=== PATIENT | female | born 1965 | race Caucasian/White ===

== ENCOUNTER → 2017-02-24 | Outpatient (CLI) | payer OTHER | LOC: BMCIMAGING 14:02 | PROVIDERS: ATTEND Orthopaedic Surgery | DX: M17.11 Unilateral primary osteoarthritis, right knee (principal) ==

== ENCOUNTER → 2017-06-09 | Outpatient (CLI) | payer OTHER | LOC: FIMAGING 10:49 | PROVIDERS: ATTEND Orthopaedic Surgery | DX: M17.11 Unilateral primary osteoarthritis, right knee (principal) ==

== ENCOUNTER → 2017-07-02 | Outpatient (CLI) | payer OTHER | LOC: FIMAGING 07:14 | PROVIDERS: ATTEND Family Medicine | DX: Z12.31 Encounter for screening mammogram for malignant neoplasm of breast (principal) | CPT/HCPCS: G0202 ==

== ENCOUNTER 2017-07-26 09:00 | Inpatient (IN) | payer OTHER ==
--- NOTE | 2017-07-26 07:13 | PDHPUP ---
History & Physical Update H&P update statement: This history and physical update is based on an assessment of the patient which was completed after admission or registration (within 24 hours), but prior to the surgery/procedure.
--- NOTE | 2017-07-26 07:15 | PDIAF ---
- Diagnosis Diagnosis: right knee djd Code Status: Full Code - Medication Management Discharge Medications: Medications to Continue on Transfer celeCOXIB [Celebrex (*)] 200 mg PO DAILY PRN 04/14/14 [Last Taken Unknown] Ascorbic Acid [Vitamin C 500 mg (*)] 1,000 mg PO DAILY 06/28/17 [Last Taken Unknown] Herbals/Supplements -Info Only 1 ea PO DAILY 06/28/17 [Last Taken Unknown] Ibuprofen [Advil] 200 mg PO DAILY PRN 06/28/17 [Last Taken Unknown] [place]-3 Fatty Acids [Fish Oil 1000 mg (*)] 1,000 mg PO DAILY 06/28/17 [Last Taken Unknown] Discharge Medications: Refer to the Discharge Home Medication list for PRN reason. - Orders Services needed: Physical Therapy Diet Recommendation: no restrictions on diet Diet Texture: Regular Texture Diet Activity/Weight Bearing Restrictions: wbat. rom as joseph. daily dressing changes. no soaking. may shower without bandage. seek attn for increasing redness, swelling, drainage, discharge. f/u at two weeks - Follow Up Care Current Providers and Referrals: Shaina Valle MD [Primary Care Provider] -
[~2017-07-26 09:00] MED LIST: ROPIVACAINE 0.2% 80 MG, EPINEPHrine 0.2 MG, KETOROLAC TROMETHAMINE 30 MG in BAG 0 ML IU ONE; TRANEXAMIC ACID 890 MG in NS 100 ML IV ONE; VANCOMYCIN 1.25 GM in D5W 250 ML IV ONE; VANCOMYCIN PHARMACY TO DOSE MISC ONE
[2017-07-26] MEDS ORDERED: ceFAZolin 1 GM/5 ML SYR ONE (09:32)
[2017-07-26] MEDS ORDERED: CALCIUM CHLORIDE 1 GM/10 ML INJ ONE (09:32)
[2017-07-26] MEDS ORDERED: THROMBIN (BOVINE) 5,000 UNIT VIAL TP ONE (09:32)
[2017-07-26] MEDS ORDERED: FAMOTIDINE 20 MG TAB PO ONE (09:34)
[2017-07-26] MEDS ORDERED: ACETAMINOPHEN 325 MG TAB PO ONE (09:34)
[2017-07-26] MEDS ORDERED: MIDAZOLAM 2 MG/2 ML VIAL ONE ×2 (11:18→12:19)
[2017-07-26] MEDS ORDERED: ALBUMIN 5% 250 ML BOTTLE IV ONE (11:27)
[2017-07-26] MEDS ORDERED: PROPOFOL/EMULSION 500 MG/50 ML BOTTLE IV ONE (11:28)
--- NOTE | 2017-07-26 11:36 | PDANEPAE ---
ANE Past Medical History - Cardiovascular History Hx Hypertension: No Hx Arrhythmias: No Hx Chest Pain: No Hx Coronary Artery / Peripheral Vascular Disease: No Hx CHF / Valvular Disease: No Hx Palpitations: No - Pulmonary History Hx COPD: No Hx Asthma/Reactive Airway Disease: No Hx Recent Upper Respiratory Infection: No Hx Oxygen in Use at Home: No Hx Sleep Apnea: No Sleep Apnea Screening Result - Last Documented: Negative - Neurologic History Hx Cerebrovascular Accident: No Hx Seizures: No Hx Dementia: No - Endocrine History Hx Diabetes: No - Renal History Hx Renal Disorders: No - Liver History Hx Hepatic Disorders: No - Neurological & Psychiatric Hx Hx Neurological and Psychiatric Disorders: No - Cancer History Hx Cancer: No - Congenital Disorder History Hx Congenital Disorders: No - GI History Hx Gastrointestinal Disorders: No - Other Health History Other Health History: none - Chronic Pain History Chronic Pain: Yes (R knee) - Surgical History Prior Surgeries: L knee scope 04/25. appi ANE Review of Systems Review of Systems: - Exercise capacity METS (RN): 5 METS ANE Patient History - Allergies Allergies/Adverse Reactions: morphine Allergy (Mild, Verified 07/23/17 15:31) LACK OF EFFECTIVENESS amoxicillin [Amoxicillin] Allergy (Verified 02/12/14 13:55) Rash - Home Medications Home Medications: celeCOXIB [Celebrex (*)] 200 mg PO DAILY PRN 04/14/14 [Last Taken 07/21/17] Ascorbic Acid [Vitamin C 500 mg (*)] 1,000 mg PO DAILY 06/28/17 [Last Taken 05/01] Herbals/Supplements -Info Only 1 ea PO DAILY 06/28/17 [Last Taken 07/21/17] Ibuprofen [Advil] 200 mg PO DAILY PRN 06/28/17 [Last Taken 07/21/17] [place]-3 Fatty Acids [Fish Oil 1000 mg (*)] 1,000 mg PO DAILY 06/28/17 [Last Taken 07/21/17] - NPO status NPO Since - Liquids (Date): 07/25/17 NPO Since - Liquids (Time): 19:00 NPO Since - Solids (Date): 07/25/17 NPO Since - Solids (Time): 19:00 - Smoking Hx Smoking Status: Never smoked - Family Anes Hx Family Hx Anesthesia Complications: no ANE Labs/Vital Signs - Vital Signs Blood Pressure: 149/97 Heart Rate: 90 Respiratory Rate: 16 O2 Sat (%): 97 Height: 165.1 cm Weight: 89.358 kg ANE Physical Exam - Airway Neck exam: FROM Mallampati Score: Class 1 Mouth exam: normal dental/mouth exam - Pulmonary Pulmonary: no respiratory distress, no rales or rhonchi, clear to auscultation - Cardiovascular Cardiovascular: regular rate and rhythym, no murmur, rub, or gallop, pulses symmetric bilaterally - ASA Status ASA Status: II ANE Anesthesia Plan Anesthesia Plan: spinal Regional Anesthesia: adductor canal FNB
[2017-07-26] MEDS ORDERED: ACETAMINOPHEN 500 MG TAB PO PRN (13:11)
[2017-07-26] MEDS ORDERED: LR 500 ML IV PRN (13:11)
[2017-07-26] MEDS ORDERED: MEPERIDINE 25 MG/ML SYR IVP PRN (13:11)
[2017-07-26] MEDS ORDERED: NALOXONE HCL 0.4 MG/ML INJ IVP PRN (13:11)
[2017-07-26] MEDS ORDERED: fentaNYL 100 MCG/2 ML INJ IVP PRN (13:11)
[2017-07-26] MEDS ORDERED: METOCLOPRAMIDE 10 MG/2 ML VIAL IVP PRN ×2 (13:11→16:56)
[2017-07-26] MEDS ORDERED: DEXAMETHASONE 4 MG/ML VIAL IVP PRN (13:11)
[2017-07-26] MEDS ORDERED: ALBUTEROL 3 ML DEYVIAL IH PRN (13:11)
[2017-07-26] MEDS ORDERED: PROMETHAZINE HCL 25 MG/ML INJ IVP PRN ×2 (13:11→16:56)
[2017-07-26] MEDS ORDERED: ONDANSETRON 4 MG/2 ML VIAL IVP PRN ×2 (13:11→16:56)
[2017-07-26] MEDS ORDERED: ROPIVACAINE HCL 150 MG/30 ML INJ ONE (15:39)
--- NOTE | 2017-07-26 15:42 | POSTANESTH ---
Post Anesthetic Evaluation Cardiovascular Status: Normal, Stable Respiratory Status: Normal, Stable Level of Consciousness/Mental Status: Mildly Sleepy, Arousable Pain Control: Adequate, Prn Tx Ordered Nausea/Vomiting Control: Adequate, Prn Tx Ordered Complications Possibly Related to Anesthesia: None Noted
[2017-07-26] MEDS ORDERED: oxyCODONE IR 5 MG TAB PO PRN ×2 (15:43→16:56)
[2017-07-26] MEDS: oxyCODONE IR 5 MG TAB PO PRN ×2 (16:54→20:37)
[2017-07-26] MEDS ORDERED: MAGNESIUM HYDROXIDE 30 ML UDCUP PO PRN (16:56)
[2017-07-26] MEDS ORDERED: PHARMACY PAIN CONSULT 1 EA MISC PRN (16:56)
[2017-07-26] MEDS ORDERED: traMADol 50 MG TAB PO PRN (16:56)
[2017-07-26] MEDS ORDERED: DIPHENOXYLATE/ATROPINE LOMOTIL 1 TAB PO PRN (16:56)
[2017-07-26] MEDS ORDERED: POLYETHYLENE GLYCOL 3350 17 GM PKT PO PRN (16:56)
[2017-07-26] MEDS ORDERED: ONDANSETRON DISINTEGRATING 4 MG TAB PO PRN (16:56)
[2017-07-26] MEDS ORDERED: LACTULOSE 20 GM/30 ML UDCUP PO PRN (16:56)
[2017-07-26] MEDS ORDERED: DIAZEPAM 5 MG TAB PO PRN (16:56)
[2017-07-26] MEDS ORDERED: PROMETHAZINE HCL 25 MG SUPPR PR PRN (16:56)
[2017-07-26] MEDS ORDERED: diphenhydrAMINE 25 MG CAP PO PRN (16:56)
[2017-07-26] MEDS ORDERED: TEMAZEPAM 15 MG CAP PO PRN (16:56)
[2017-07-26] MEDS ORDERED: BISACODYL 10 MG SUPP PR PRN (16:56)
[2017-07-26] MEDS ORDERED: HYDROmorphONE/DILAUDID 1 MG/ML INJ IVP PRN (16:57)
[2017-07-26] MEDS: TRANEXAMIC ACID 650 MG TAB PO SCH (17:33)
[2017-07-26] MEDS: ACETAMINOPHEN 325 MG TAB PO SCH (17:33)
[2017-07-26] MEDS: LR 1,000 ML IV SCH ×2 (17:33→17:34)
[2017-07-26] MEDS: SENNOSIDES/DOCUSATE SODIUM TAB PO SCH (20:36)
[2017-07-26] MEDS: ASPIRIN 325 MG TAB PO SCH (20:36)
[2017-07-26] MEDS: FAMOTIDINE 20 MG TAB PO SCH (20:36)
[2017-07-27] MEDS: oxyCODONE IR 5 MG TAB PO PRN ×4 (00:04→13:08)
[2017-07-27] MEDS: ACETAMINOPHEN 325 MG TAB PO SCH ×3 (00:04→12:38)
[2017-07-27] MEDS: TRANEXAMIC ACID 650 MG TAB PO SCH ×2 (00:05→08:28)
[2017-07-27 04:46] LABS: HEMATOCRIT 36.8 % (38.0-47.0); HEMOGLOBIN 11.5 g/dL (12.6-16.3)
--- NOTE | 2017-07-27 07:17 | PDIAF ---
- Diagnosis Diagnosis: right knee djd Code Status: Full Code - Medication Management Discharge Medications: Medications to Continue on Transfer celeCOXIB [Celebrex (*)] 200 mg PO DAILY PRN 04/14/14 [Last Taken 07/21/17] Ascorbic Acid [Vitamin C 500 mg (*)] 1,000 mg PO DAILY 06/28/17 [Last Taken 05/01] Herbals/Supplements -Info Only 1 ea PO DAILY 06/28/17 [Last Taken 07/21/17] Ibuprofen [Advil] 200 mg PO DAILY PRN 06/28/17 [Last Taken 07/21/17] [place]-3 Fatty Acids [Fish Oil 1000 mg (*)] 1,000 mg PO DAILY 06/28/17 [Last Taken 07/21/17] Aspirin [Aspirin 325 mg (*)] 325 mg PO DAILY tab 07/27/17 [Last Taken Unknown] oxyCODONE IR [Oxycodone Ir (*)] 5 - 15 mg PO Q4H PRN #90 tab 07/27/17 [Last Taken Unknown] Discharge Medications: Refer to the Discharge Home Medication list for PRN reason. - Orders Services needed: Physical Therapy Diet Recommendation: no restrictions on diet Diet Texture: Regular Texture Diet Activity/Weight Bearing Restrictions: wbat. rom as joseph. daily dressing changes. no soaking. may shower without bandage. seek attn for increasing redness, swelling, drainage, discharge. f/u at two weeks - Follow Up Care Current Providers and Referrals: Shaina Valle MD [Primary Care Provider] -
[2017-07-27 07:39] VITALS: RESP 18
--- NOTE | 2017-07-27 07:52 | GDS ---
[f rep st] DISCHARGE SUMMARY ADMISSION DIAGNOSIS: Right knee degenerative joint disease. DISCHARGE DIAGNOSIS: Right knee degenerative joint disease. PROCEDURE: Right total knee arthroplasty. OPERATIVE INDICATIONS: The patient is a 51-year-old woman who has end-stage arthritis to her right k nee. She has clinical radiograph features consistent with this. She has had progressive deteriorati on of her symptoms and interference with her activities of daily living. She has failed all attempts at conservative management currently. I have recommended total knee replacement. She understood e risks, benefits, alternatives and wished to proceed. Written consent was signed and placed in gretel ent's chart. HOSPITAL COURSE: Patient was admitted to the hospital floor after uncomplicated total knee arthropla sty. She tolerated the procedure well. Postoperatively, she had slight issues of pain control but o therwise no focal complications. At the time of discharge, she is tolerating an oral diet. Her pain is well controlled on oral medicines. She is voiding without difficulty. Dressing is clean, dry, a nd intact. She has no calf swelling or tenderness. Negative Homans bilaterally. X-rays demonstrate d anatomic positioning with no lucency, fracture, or malpositioning. DISCHARGE ACTIVITY: She is weightbearing as tolerated. Range of motion as tolerated. Daily dressin g changes. No soaking or immersion. May shower without the bandage. DISCHARGE MEDICATIONS: Aspirin 325 mg p.o. daily for 6 weeks and oxycodone 5 mg 1-3 every 4 hours p. r.n. pain. FOLLOWUP: 2 weeks. Seek attention for increasing redness, swelling, drainage, discharge, or other f ocal complaint. /[id number]/MODL
[2017-07-27] MEDS: ASPIRIN 325 MG TAB PO SCH (08:28)
[2017-07-27] MEDS: FAMOTIDINE 20 MG TAB PO SCH (08:29)
[2017-07-27] MEDS: SENNOSIDES/DOCUSATE SODIUM TAB PO SCH (08:29)
--- NOTE | 2017-07-27 10:29 | ASMTCMCOM ---
CM Note CM Note Notes: Met with patient regarding discharge poc. Patient agreeable to Home Health Care and and would like [facility]. Spoke with Jenna at [facility] re: referral, able to accept. Info sent to [facility], final orders to be obtained online. Patient's partner to pick-up walker from [place]. CM avail. for questions/concerns. Date Signed: 07/27/2017 10:28 AM Electronically Signed By:Claribel Gutierrez RN
[2017-07-27 11:11] VITALS: BP 155/91; PULSE 73; TEMP 98.1; O2SAT 96
--- NOTE | 2017-07-27 16:56 | ASDISCHSUM ---
Discharge Information Plan Status:Home with Home Health Medically Cleared to Leave: Discharge Date:07/27/2017 04:01 PM D/C Disposition: ADT D/C Disposition:Home, Routine, Self-Care Projected Discharge Date:07/27/2017 11:00 AM Transportation at D/C: Discharge Delay Reason: Follow-Up Date:07/27/2017 11:00 AM Discharge Slot: Final Diagnosis: Placement Information Referral Type:*Home Health Care Services Referral ID:[id number] Provider Name:[facility] Address 1:[address] Address 2: City:[place] Selection Factors: State:[place] Patient Contact Information Contact Name:JUDY Relationship:Life Partner Address:[address] Work Phone: [facility]:[place] Alternate Phone: State/Zip Code:[place] [address] Email: Financial Information Financial Class:[facility] Primary Plan Desc:[facility] Primary Plan Number:[id number] Secondary Plan Desc: Secondary Plan Number: Assessment Information [facility] CM Progress Note CM Note CM Note Notes: Met with patient regarding discharge poc. Patient agreeable to Home Health Care and and would like [facility]. Spoke with Jenna at [facility] re: referral, able to accept. Info sent to [facility], final orders to be obtained online. Patient's partner to pick-up caroline from [facility]. CM avail. for questions/concerns. Date Signed: 07/27/2017 10:28 AM Electronically Signed By:Claribel Gutierrez RN Intervention Information
== END 2017-07-27 16:01 | disposition home or self-care (01) | DRG 470 ==
LOC: F3E 09:20 → F3N 16:15
PROVIDERS: ADMIT Orthopaedic Surgery; ATTEND Orthopaedic Surgery
PROC: 0SRC0JZ Replacement of Right Knee Joint with Synthetic Substitute, Open Approach (ICD-10-PCS; principal; 2017-07-26 09:00)
DX: M17.11 Unilateral primary osteoarthritis, right knee (principal)
CPT/HCPCS: 97110-GP; 97116-GP; 97161-GP; 97165-GO; 97530-GP; C1713; J0171; J1170; J1885; J2250; J2704; J2795; J3370; P9041

== ENCOUNTER → 2017-09-08 | Outpatient (CLI) | payer OTHER | LOC: BMCIMAGING 13:20 | PROVIDERS: ATTEND Orthopaedic Surgery | DX: Z47.1 Aftercare following joint replacement surgery (principal); Z96.651 Presence of right artificial knee joint; M25.461 Effusion, right knee ==

== ENCOUNTER → 2017-10-05 | Outpatient (CLI) | payer OTHER | LOC: BMCIMAGING 15:26 | PROVIDERS: ATTEND Orthopaedic Surgery | DX: Z09 Encounter for follow-up examination after completed treatment for conditions other than malignant neoplasm (principal); Z96.651 Presence of right artificial knee joint ==

== ENCOUNTER → 2018-02-01 | Outpatient (CLI) | payer OTHER | LOC: BMCIMAGING 13:14 | PROVIDERS: ATTEND Orthopaedic Surgery | DX: Z47.1 Aftercare following joint replacement surgery (principal); Z96.651 Presence of right artificial knee joint ==

== ENCOUNTER → 2018-08-03 | Outpatient (CLI) | payer OTHER | LOC: BMCIMAGING 10:57 | PROVIDERS: ATTEND Orthopaedic Surgery | DX: Z47.89 Encounter for other orthopedic aftercare (principal); Z96.651 Presence of right artificial knee joint ==

== ENCOUNTER 2018-10-20 15:00 | Inpatient (IN) | payer OTHER ==
--- NOTE | 2018-10-20 18:52 | GHP ---
DATE OF ADMISSION: 10/21/2018 PREOPERATIVE DIAGNOSIS: Menorrhagia and symptomatic uterine fibroids. SURGERY TO BE PERFORMED: Total laparoscopic hysterectomy and bilateral salpingectomy. COLLECT ON DELIVERY CLERK: Shelby Sinclair DO HISTORY OF PRESENT ILLNESS: Fernanda is a 52year-old 0, who originally presented complaining of severe menorrhagia and symptomatic uterine fibroids causing significant anemia. She has had long and heavy, frequent periods for many years, but they are increasing over the last year. She had an evaluation for her bleeding, which included an ultrasound. The ultrasound demonstrated a large fibroid occupying the central portion of her uterus, submucosal in nature , that was 6.8 x 5.7 x 7.3 cm. This was originally performed in December 2017. At that time, we discussed treatment options, surgical management versus expectant management. Patient was reluctant to have surgery because of starting a new job. She was anemic but taking iron and feeling like she was handling her bleeding alright. We also did an evaluation for her hormones, and she is not menopausal. Over the last 8 months, her bleeding has become worse and she presented again in September with worsening bleeding of every 2 weeks, lasting 2 weeks. She soaks 2 tampons every hour and bleeds through frequently, passing large clots and feeling really rundown. We repeated an ultrasound and the fibroid has gotten bigger. It is submucosal in nature, 8.6 x 7.6 x 7.6 cm, and she also has a smaller 2 cm fibroid in the lower uterine segment. Ovaries were normal. We again discussed treatment options and this fibroid is too large , is not amenable to hysteroscopic approach. I recommend a hysterectomy and patient is in agreement. She wishes to have a total laparoscopic hysterectomy, bilateral salpingectomy. She wants to retain her ovaries. She realizes she is 52 years old and there is a possibility that they could cause malignancy in the future, but she wishes to retain her ovaries and retain her natural hormones, and she is not menopausal at this time. Patient has no past obstetrical history. She has never been . PAST GYNECOLOGICAL HISTORY: She started menses at age 10. Currently, her periods are every 21 days, lasting at least 10 days, very, very heavy. They have worsened in the past several years. She denies a history of abnormal Pap. Her most recent Pap was in December of this year, which was normal. No history of any sexually transmitted diseases. She is in a monogamous relationship with a female for 19 years. She has no significant past medical problems, except for chronic anemia of blood loss. PAST SURGICAL HISTORY: She had a history of an appendectomy in 1989, a left meniscus repair in 2010, a right meniscus repair in 2012, and a total knee in 2017, on her right. Her only medication is iron, which she takes every day. ALLERGIES: Amoxicillin gave her a rash in childhood. 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 She denies tobacco. She has social alcohol 4 times a week. No marijuana use. Again, she is in a monogamous female relationship. FAMILY HISTORY: Noncontributory. OBJECTIVE: VITAL SIGNS: Today, she is afebrile. Vital signs are stable. Blood pressure is 122/78, weight is 208 pounds. GENERAL: She is a well- developed, obese white female in no acute distress. LUNGS: Clear to auscultation bilaterally. HEART: Regular rate and rhythm. No murmurs. ABDOMEN: Soft, nondistended, normal bowel sounds. Palpable uterus and is in her lower pelvis. PELVIC: Normal external genitalia. Nulliparous cervix. Uterus is bulky, approximately 12 week size, and the fibroid is palpable. No adnexal masses. ASSESSMENT AND PLAN: A 52year-old 0 with menorrhagia and a symptomatic submucosal uterine fibroid for total laparoscopic hysterectomy, bilateral salpingectomy. The patient was consented for the procedure today. She understands the risks and benefits. The risks, including bleeding, infection, damage to organs, bowel, bladder, nerves, blood vessels, ureters, need for open procedure, need for additional procedures. She understands these risks and benefits and agreed to proceed. /[id number]/MODL MTDD
[2018-10-21] MEDS ORDERED: BUPIVACAINE 0.5% 30 ML SDV ONE (07:40)
[2018-10-21] MEDS ORDERED: LR 1,000 ML IV ONE (07:40)
[2018-10-21] MEDS ORDERED: LIDOCAINE 1% 2 ML INJ ID PRN (07:40)
[2018-10-21] MEDS ORDERED: ceFAZolin 2 GM/DEXTROSE 100 ML IV ONE (07:40)
[2018-10-21] MEDS ORDERED: MIDAZOLAM 2 MG/2 ML VIAL ONE (08:59)
[2018-10-21] MEDS ORDERED: ONDANSETRON 4 MG/2 ML VIAL ONE ×2 (08:59→10:27)
--- NOTE | 2018-10-21 09:08 | PDHPUP ---
History & Physical Update H&P update statement: This history and physical update is based on an assessment of the patient which was completed after admission or registration (within 24 hours), but prior to the surgery/procedure. H&P update: H&P reviewed & patient examined, no change in patient's condition since H&P completed
[2018-10-21] MEDS ORDERED: PROPOFOL/EMULSION 500 MG/50 ML BOTTLE IV ONE ×2 (09:16→10:28)
[2018-10-21] MEDS ORDERED: fentaNYL 250 MCG/5 ML INJ ONE (09:16)
[2018-10-21] MEDS ORDERED: KETAMINE 200 MG/20 ML VIAL ONE (09:21)
[2018-10-21] MEDS ORDERED: ALBUMIN 5% 250 ML BOTTLE IV ONE (09:24)
[2018-10-21] MEDS ORDERED: ALBUTEROL 3 ML DEYVIAL IH PRN (10:18)
[2018-10-21] MEDS ORDERED: oxyCODONE IR 5 MG TAB PO PRN (10:18)
[2018-10-21] MEDS ORDERED: MEPERIDINE 25 MG/0.5 ML AMP IVP PRN (10:18)
[2018-10-21] MEDS ORDERED: NALOXONE HCL 0.4 MG/ML INJ IVP PRN (10:18)
[2018-10-21] MEDS ORDERED: ONDANSETRON 4 MG/2 ML VIAL IVP PRN (10:18)
[2018-10-21] MEDS ORDERED: METOCLOPRAMIDE 10 MG/2 ML VIAL IVP PRN (10:18)
[2018-10-21] MEDS ORDERED: fentaNYL 100 MCG/2 ML INJ IVP PRN (10:18)
[2018-10-21] MEDS ORDERED: HYDROCODONE/APAP 5/325 TAB PO PRN ×2 (10:18→13:53)
[2018-10-21] MEDS ORDERED: DEXAMETHASONE 4 MG/ML VIAL IVP PRN (10:18)
[2018-10-21] MEDS ORDERED: LR 500 ML IV PRN (10:18)
[2018-10-21] MEDS ORDERED: PROMETHAZINE HCL 25 MG/ML INJ IVP PRN (10:18)
[2018-10-21] MEDS ORDERED: ACETAMINOPHEN 500 MG TAB PO PRN (10:18)
[2018-10-21] MEDS ORDERED: HYDROmorphONE/DILAUDID 2 MG/ML INJ IVP PRN (10:18)
[2018-10-21] MEDS ORDERED: DIAZEPAM 5 MG/ML 1 ML SYR IVP PRN (10:18)
--- NOTE | 2018-10-21 10:18 | PDANEPAE ---
ANE Past Medical History - Cardiovascular History Hx Hypertension: No Hx Arrhythmias: No Hx Chest Pain: No Hx Coronary Artery / Peripheral Vascular Disease: No Hx CHF / Valvular Disease: No Hx Palpitations: No - Pulmonary History Hx COPD: No Hx Asthma/Reactive Airway Disease: No Hx Recent Upper Respiratory Infection: No Hx Oxygen in Use at Home: No Hx Sleep Apnea: No Sleep Apnea Screening Result - Last Documented: Negative - Neurologic History Hx Cerebrovascular Accident: No Hx Seizures: No Hx Dementia: No - Endocrine History Hx Diabetes: No - Renal History Hx Renal Disorders: No - Liver History Hx Hepatic Disorders: No - Neurological & Psychiatric Hx Hx Neurological and Psychiatric Disorders: No - Cancer History Hx Cancer: No - Congenital Disorder History Hx Congenital Disorders: No - GI History Hx Gastrointestinal Disorders: No - Other Health History Other Health History: fibroids currently. wears reading glasses - Chronic Pain History Chronic Pain: No - Surgical History Prior Surgeries: 07/26/17 right TKA with Repine. 02/12/14 right knee scope with [place]. 05/06/11 Left knee scope with [place]er. appi ANE Review of Systems Review of Systems: - Exercise capacity METS (RN): 6 METS ANE Patient History - Allergies Allergies/Adverse Reactions: morphine Allergy (Mild, Verified 10/20/18 14:25) LACK OF EFFECTIVENESS amoxicillin [Amoxicillin] Allergy (Verified 10/20/18 14:25) Rash - Home Medications Home Medications: Ferrous Sulfate [Ferrous Sulf 325 MG (*)] 325 mg PO DAILY 10/18/18 [Last Taken Unknown] Ibuprofen [Motrin (*)] 200 mg PO DAILY PRN 10/18/18 [Last Taken Unknown] - NPO status NPO Since - Liquids (Date): 10/20/18 NPO Since - Liquids (Time): 20:00 NPO Since - Solids (Date): 10/20/18 NPO Since - Solids (Time): 20:00 - Smoking Hx Smoking Status: Never smoked - Family Anes Hx Family Hx Anesthesia Complications: none ANE Labs/Vital Signs - Vital Signs Blood Pressure: 133/93 Heart Rate: 91 Respiratory Rate: 14 O2 Sat (%): 97 Height: 165.1 cm Weight: 87.09 kg ANE Physical Exam - Airway Neck exam: FROM Mallampati Score: Class 1 Mouth exam: normal dental/mouth exam - Pulmonary Pulmonary: no respiratory distress, no rales or rhonchi, clear to auscultation - Cardiovascular Cardiovascular: regular rate and rhythym, no murmur, rub, or gallop - ASA Status ASA Status: II ANE Anesthesia Plan Anesthesia Plan: general endotracheal anesthesia Lines/Monitors: additional IV Total IV Anesthesia: Yes
[2018-10-21] MEDS ORDERED: DEXAMETHASONE 4 MG/ML VIAL ONE (10:27)
[2018-10-21] MEDS ORDERED: RANITIDINE 50 MG/2 ML VIAL ONE (10:27)
[2018-10-21] MEDS ORDERED: LIDOCAINE 2% 5 ML SDV ONE (10:27)
[2018-10-21] MEDS ORDERED: METOCLOPRAMIDE 10 MG/2 ML VIAL ONE (10:27)
[2018-10-21] MEDS ORDERED: ROCURONIUM 50 MG/5 ML VIAL ONE (10:27)
[2018-10-21] MEDS ORDERED: SUGAMMADEX SODIUM 200 MG/2 ML VIAL IVP ONE (10:27)
[2018-10-21] MEDS ORDERED: METHYLENE BLUE 0.5% 50 MG/10 ML AMP ONE (12:05)
[2018-10-21] MEDS ORDERED: IOPAMIDOL (ISOVUE-M 300) 15 ML VIAL ONE (12:49)
--- NOTE | 2018-10-21 13:26 | POSTOPPROG ---
Post Op Note Date of Operation: 10/21/18 Surgeon: Daniel Vasquez Pre-op Diagnosis: uretera lnjury Findings: [id number] Inf/Abcess present in the surg proc area at time of surgery?: No
--- NOTE | 2018-10-21 13:52 | GCON ---
DATE OF CONSULTATION: 10/21/2018 REASON FOR CONSULT: Potential ureteral trauma. 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 The case was uneventful, and routine insp ection for ureteral efflux at the end of the case did not reveal left ureteral efflux according to Dr Mag Guillen. Therefore, Urology was consulted. The patient is under general anesthesia in the operating room, and therefore, past histories and phys ical exam are unremarkable. PLAN: Cystoscopy, retrograde pyelogram, and stent insertion, possible ureteral reimplantation. /[id number]/MODL
--- NOTE | 2018-10-21 13:52 | GOP ---
DATE OF OPERATION: 10/21/2018 SURGEON: Ibrahima Vasquez MD ANESTHESIA: General. PREOPERATIVE DIAGNOSIS: Potential left ureteral trauma during hysterectomy. POSTOPERATIVE DIAGNOSIS: Probable ureteral edema. PROCEDURE PERFORMED: Cystoscopy, left ureteral stent insertion. FINDINGS: ESTIMATED BLOOD LOSS: Minimal from this portion of the procedure. INDICATIONS: This is a 53-year-old female who was undergoing hysterectomy which was uneventful. The routine observation for ureteral efflux at the end of the case did not show left-sided efflux. Ther efore, Urology was consulted. DESCRIPTION OF PROCEDURE: With the patient in the operating room, the 22-Guatemalan cystoscope with a 30 degree lens was inserted through the patient's urethra into the bladder. Left ureteral orifice was examined. No efflux was noted. A Sensor type wire was then guided by carefully feeling for any resi stance into the left collecting system. Efflux of green appearing urine was then noted. Out of caut ion it was thought most prudent to place a stent, and therefore, by palpation a 6-Guatemalan stent was pl aced in the left kidney and seen to curl in the bladder by direct vision. Fluoroscopy available afte r that portion of the case showed the stent to be curled in the area of the left kidney, possibly in the upper pole. The case was turned back over to Dr. Guillen, and she was placing Casiano catheter. Pos top care including Macrobid and catheter and stenting was discussed. COMPLICATIONS: None. DRAINS: Left-sided 6-Guatemalan by 22 cm ureteral stent. /[id number]/MODL
--- NOTE | 2018-10-21 13:53 | POSTOPPROG ---
Post Op Note Date of Operation: 10/21/18 Surgeon: Faith Guillen Electrical Systems Drafter: Shelby Sinclair Anesthesiologist: Mignon Roche Anesthesia: GET(General Endotracheal) Pre-op Diagnosis: menorrhagia, symptomatic uterine fibroids Post-op Diagnosis: same Procedure: TLH, B salpingectomy, cystoscopy placement of Left uteteral stent Findings: uterus with large fundal fibroid, normal tubes and ovaries Inf/Abcess present in the surg proc area at time of surgery?: No Depth: Organ Space EBL: 50-100 Total fluids administered: 600 cystalloid, 500 albumin Complications: unable to visualize peristalsis of Left ureter, laparoscopically or cystoscopically Urology consult obtained, Cystoscopy with stent placed for precaution, no distinct ureteral injury seen. Normal spillage of urine and dye visualized Specimen(s): uterus with cervix, bilateral fallopian tubes
[2018-10-21] MEDS ORDERED: LACTULOSE 20 GM/30 ML UDCUP PO PRN (13:56)
[2018-10-21] MEDS ORDERED: BISACODYL 10 MG SUPP PR PRN (13:56)
[2018-10-21] MEDS ORDERED: POLYETHYLENE GLYCOL 3350 17 GM PKT PO PRN (13:56)
[2018-10-21] MEDS ORDERED: MAGNESIUM HYDROXIDE 30 ML UDCUP PO PRN (13:56)
[2018-10-21] MEDS ORDERED: fentaNYL 100 MCG/2 ML INJ ONE (14:05)
--- NOTE | 2018-10-21 14:38 | POSTANESTH ---
Post Anesthetic Evaluation Cardiovascular Status: Normal, Stable, Similar to Pre-Op Cond Respiratory Status: Normal, Stable, Similar to Pre-op Cond. Level of Consciousness/Mental Status: Mildly Sleepy, Arousable Pain Control: Adequate, Prn Tx Ordered Nausea/Vomiting Control: Adequate, Prn Tx Ordered Complications Possibly Related to Anesthesia: None Noted
[2018-10-21] MEDS ORDERED: HYDROmorphONE/DILAUDID 2 MG/ML INJ ONE (15:06)
--- NOTE | 2018-10-21 15:18 | GOP ---
DATE OF OPERATION: 10/21/2018 SURGEON: Faith Guillen MD VENEER JOINTER OPERATOR: Dr. Shelby Sinclair. PREOPERATIVE DIAGNOSIS: Menometrorrhagia and symptomatic uterine fibroids. POSTOPERATIVE DIAGNOSIS: Menometrorrhagia and symptomatic uterine fibroids. PROCEDURE PERFORMED: Total laparoscopic hysterectomy, bilateral salpingectomy, cystoscopy with place ment of left ureteral stent. FINDINGS: ESTIMATED BLOOD LOSS: 25 cc. DESCRIPTION OF PROCEDURE: The patient was taken to the operating room. She was placed in dorsal lit hotomy position. She was placed under general anesthesia without difficulty. She was prepped and dr juvencio in the dorsal lithotomy position and a Casiano catheter was placed in her bladder. After WH2O juany e-out was performed an open-sided speculum was placed in the vagina, and a single-tooth tenaculum was used to grasp the anterior lip of the cervix. The uterus sounded to 7 cm. The EZIO uterine manipul ator was then gently advanced into the cervix, balloon was inflated, and the cervical cup was advance d circumferentially around the cervix. The speculum was removed. Attention was then turned to the abdominal portion of the procedure. After injection with Marcaine a 5 mm skin incision was made in the infraumbilical skin fold and the atraumatic [address] d through that incision under direct visualization and pneumoperitoneum was created with carbon dioxi de gas. After injection of Marcaine, a 5 mm skin incision was made and a 5 mm atraumatic trocar was placed in the right lower quadrant and a 10 mm incision was made and a 10 mm port was placed on the l eft. The patient was then placed in steep Trendelenburg. Visualization of the pelvis revealed a lar ge bulky uterus with a fibroid at the fundus. Normal tubes and ovaries. No other gross abnormalitie s were in the pelvis. The left fallopian tube was grasped and a LigaSure was used to cauterize and c ut from the fimbriated end along the mesosalpinx to the cornual region and was amputated and removed directly through the port. The left ovary was elevated and the left ureter was seen peristalsing nor graham along the pelvic brim and pelvic sidewall. The round ligament was cauterized and cut. The chacha ro-ovarian ligament was cauterized and cut, and dissection was performed along the cardinal ligament on the left side. The broad ligament was opened in the anterior and posterior leaf and dissection wa s performed with the broad ligament over the visualized cervical cup from the EZIO manipulator. This was performed anteriorly and posteriorly with good care to cauterize and cut the vessels and bring t he dissection around circumferentially. Identical procedure was performed with the right side, grasp ing the right fallopian tube, amputating this and removing, identifying the normal peristalsing urete r along the pelvic brim and cauterized and cut the round utero-ovarian ligament, cardinal ligaments, broad ligaments, and dissection was connected from the right side to the left side. The monopolar ho ok was then used from the ligature to make the colpotomy after the balloon had been inflated to keep pneumoperitoneum and the colpotomy was made in a circumferential fashion until the uterus was complet catia free. This was performed, and there was good hemostasis noted. The uterus was then removed vagi shannan. The EZIO manipulator was removed. Tenaculums were removed to hold and keep the uterus in the vagina, and the pelvis and the fundal fibroid was morcellated directly vaginally to reduce the size of the uterus to allow for vaginal removal. This was performed without difficulty. In the internal portion of the uterus the serosa was intact and the uterus was then directly removed with no segments into the peritoneum. A gloved sponge was then placed in the vagina, and the vaginal cuff was repair ed with the V-loc suture from right to left with good visualization of the anterior and posterior fla ps of peritoneum and care to get the uterosacral ligaments. Hemostasis was assured along the cuff an d along the ovarian pedicle. The right ureter was visualized and noted to be peristalsing normally i n the pelvic brim. The left ureter was visualized but was not seen to be peristalsing normally with several attempts. Cystoscopy was then performed and over several times of visualization, the left ur eter still could not peristalses. There was no noted damage. There was no bleeding noted, but was n ot peristalsing normally, so Urology was consulted, Dr. Vasquez came and help analyze the state of the ureter. The patient was given methylene blue. When he looked through the cystoscope a nd placed lead wire into that left ureter the left ureter immediately spilled urine that was colored with methylene blue. The guidewire passed easily without any evidence of obstruction or disruption. He placed a stent directly also easily without any evidence of disruption. An x-ray was performed t hat showed the ureter stent in correct place with a curl in the kidney and no evidence of kinking or disruption. The cystoscope was removed. The decision was made to leave the stent in place for safet y for a couple days and it will be removed this week. Casiano catheter was then replaced in her bladde r. The fascia was closed with 0 Vicryl with the fascial closure device and all the skin was closed w ith 4-0 Monocryl. Vaginal sponge was also removed. The patient tolerated the procedure well. Spong e, lap, needle, and instrument counts were correct x3. Patient went to the recovery room in good con dition. CONSULTING SURGEON: Dr. Vasquez with Urology. INDICATIONS FOR PROCEDURE: The patient is a 53-year-old 0 who presented complaining of sever e menorrhagia and symptomatic uterine fibroids causing anemia for many years. She originally had an ultrasound in December of this year which demonstrated a large fibroid that was submucosal in nature that was 6.8 x 5.7 x 7.3 cm. The patient was anemic and taking iron, declined hormonal therapy. We did an evaluation of her hormone. She was not menopausal. She desired to have expectant management with her new job. After several months her bleeding has worsened, increasing in severity and intensi ty. We repeated her ultrasound and the fibroid is larger 8.6 x 7.6 x 7.6 cm. Also had a small submu cosal fibroid in the lower uterine segment. The patient's bleeding is becoming disruptive in her lif e making it difficult to work, having low energy, unable to exercise or do things that she wished to do. She was given tranexamic acid orally for heavy bleeding episodes which did improve slightly. Sh e wished to have definitive management with a hysterectomy . The patient was consented for the proce dure. She understood the risks and benefits the risks including bleeding, infection, damage to organ s, ovaries, bowel, bladder, nerves, blood vessels, ureters, need for open procedure, need for additio nal procedures. She understood these risks and benefits and agreed to proceed. URINE OUTPUT: 200 cc. IV FLUIDS: 500 cc of albumin, 600 cc of crystalloid. PATHOLOGIC SPECIMEN: Will be ureter with cervix and bilateral fallopian tubes. /[id number]/MODL
[2018-10-21] MEDS ORDERED: HYDROCODONE/APAP 5/325 TAB ONE (15:22)
[2018-10-21] MEDS: PROMETHAZINE HCL 25 MG/ML INJ IVP PRN (17:23)
[2018-10-21] MEDS: KETOROLAC 30 MG/1 ML SDV IVP SCH ×2 (17:24→22:48)
[2018-10-21] MEDS ORDERED: LIDOCAINE 2% JELLY 20 ML (UROJECT) UR ONE (18:04)
--- NOTE | 2018-10-21 18:04 | SOAPPROG ---
SOAP Progress Note Assessment/Plan: Assessment: 53 y/o POD #0 s/p TLH B salpingectomy and placement of Left ureteral stent Plan: pt will stay tonight and keep in urinary catheter. Will give topical xylocaine jelly. Advance diet, po pain meds and anticipate d/c home tomorrow. 10/21/18 18:03 Subjective: Pt is doing well tonight. She has discomfort from her catheter and aching in the pelvis, but overall has good pain control. Min nausea has resolved with Phenergan and she is tolerating clear liquids. Objective: Vital Signs Temp Pulse Resp BP Pulse Ox 35.9 C L 83 16 130/82 H 92 10/21/18 17:30 10/21/18 17:30 10/21/18 17:30 10/21/18 17:30 10/21/18 17:30 10/20/18 10/21/18 10/22/18 05:59 05:59 05:59 Intake Total 800 Output Total 220 Balance 580 - Pending Discharge Pending Discharge Within 24 Hours: Yes Pending Discharge Within 48 Hours: Yes Pending Discharge Date: 10/22/18 Pending Discharge Time: 11:00 Physical Exam - Physical Exam General Appearance: WD/WN, alert, no apparent distress Neck: non-tender, full range of motion, supple Respiratory: chest non-tender, lungs clear, normal breath sounds Cardiac/Chest: regular rate, rhythm Abdomen: normal bowel sounds, other (bleeding from umbilical incision, not active currently) Extremities: swelling (no), Lula's sign (neg) ICD10 Worksheet Patient Problems: Problems Problem Status Onset S/P laparoscopic hysterectomy Acute - ICD10 Problem Qualifiers (1) S/P laparoscopic hysterectomy
[2018-10-21] MEDS: ONDANSETRON 4 MG/2 ML VIAL IVP PRN (23:15)
[2018-10-21] MEDS ORDERED: HYDROmorphONE/DILAUDID 2 MG/ML INJ IVP ONE ×2 (23:15→23:45)
[2018-10-22] MEDS ORDERED: HYDROmorphONE/DILAUDID 2 MG/ML INJ ONE ×2 (00:03→13:02)
[2018-10-22 00:17] LABS: PLATELET COUNT 223 10^3/uL (150-400)
--- NOTE | 2018-10-22 00:19 | SOAPPROG ---
SOAP Progress Note Assessment/Plan: Assessment: 53 y/o s/p TLH, BS earlier today with building abd pain to intense pain approx 30-45 min ago in lower and right abd. mild HTN and initial tachycardia that has improved with dilaudid. abrams cath draining with clear urine and bladder scan does not reveal distension of bladder. Plan: CT scan of abd/pelvis w/wo IV conrast CBC 10/22/18 00:15 Subjective: Pt reports abd pain has been building this evening and she was 'putting up with it' but acutely seemed much more intense approx 30-45 min ago. RN states she felt intense rectal pressure and wanted to go to bathroom to relieve pressure but didn't feel she could walk to BR. Got up to SOB. No chest pain, no flank pain. no n/v Objective: Vital Signs Temp Pulse Resp BP Pulse Ox 36.1 C 94 16 113/76 94 10/21/18 18:15 10/21/18 18:15 10/21/18 18:15 10/21/18 18:15 10/21/18 18:15 10/20/18 10/21/18 10/22/18 05:59 05:59 05:59 Intake Total 1100 Output Total 1020 Balance 80 - Time Spent With Patient Time Spent With Patient: 45min Physical Exam - Physical Exam General Appearance: severe distress Respiratory: lungs clear, normal breath sounds Cardiac/Chest: regular rate, rhythm Abdomen: other (no distension, no masses, acutely tender with palpation bonny RLQ and mid, no flank pain) Extremities: non-tender, pedal edema (mild) ICD10 Worksheet Patient Problems: Problems Problem Status Onset Post-operative pain Acute S/P laparoscopic hysterectomy Acute - ICD10 Problem Qualifiers (1) Post-operative pain
[2018-10-22] MEDS ORDERED: IOPAMIDOL (ISOVUE-300) 100 ML BTL ONE (00:20)
[2018-10-22] MEDS: SENNOSIDES/DOCUSATE SODIUM TAB PO SCH ×2 (01:32→09:32)
[2018-10-22] MEDS: KETOROLAC 30 MG/1 ML SDV IVP SCH ×4 (04:30→23:19)
[2018-10-22] MEDS: HYDROmorphONE/DILAUDID 1 MG/ML INJ IVP PRN ×4 (04:31→20:56)
[2018-10-22] MEDS: ONDANSETRON 4 MG/2 ML VIAL IVP PRN (09:21)
[2018-10-22] MEDS: PROMETHAZINE HCL 25 MG/ML INJ IVP PRN (09:42)
--- NOTE | 2018-10-22 09:59 | SOAPPROG ---
SOAP Progress Note Assessment/Plan: Assessment: 53 y/o POD #1 s/p TLH B salpingectomy and placement of Left ureteral stent with acute peritoneal signs. Plan: Stat CBC and CMP now. CT demonstrated vague post-operative changes consistent with some free air but no specific evidence of organ injury, bleeding etc. I consulted Dr. Sawyer general surgery and he agrees that we need to take her to the OR for an exploratory laparoscopy possible laparotomy due to her severe pain now. Pt consented and all questions answered. 10/21/18 18:03 10/22/18 10:00 Subjective: Pt is writhing in pain. She has had episodes beginning overnight. She describes the pain as acute 10/10 originating in Right upper quadrant and radiating down her right side and across the entire abdomen. She is having nausea but no vomiting. Unable to pass gas + burping. She is feeling lightheaded and dizzy because of the pain. She denies fevers but feels diaphoretic and the pain is worse when she takes a deep breath. Objective: Vital Signs Temp Pulse Resp BP Pulse Ox 36.8 C 136 H 28 H 128/82 H 94 10/22/18 09:27 10/22/18 09:27 10/22/18 09:27 10/22/18 09:27 10/22/18 09:27 Laboratory Results 10/22/18 00:07 10/21/18 10/22/18 10/23/18 05:59 05:59 05:59 Intake Total 2075 Output Total 2220 Balance -145 Physical Exam - Physical Exam General Appearance: WD/WN, alert, severe distress (writhing in pain) Neck: non-tender, full range of motion, supple Respiratory: chest non-tender, lungs clear, normal breath sounds Cardiac/Chest: tachycardia Abdomen: distended, guarding, other (hypoactive bowel sounds in all quadrants) Pelvic Exam: deferred ICD10 Worksheet Patient Problems: Problems Problem Status Onset Post-operative pain Acute S/P laparoscopic hysterectomy Acute - ICD10 Problem Qualifiers (1) S/P laparoscopic hysterectomy
[2018-10-22 10:04] LABS: PLATELET COUNT 244 10^3/uL (150-400)
[2018-10-22] MEDS ORDERED: BUPIVACAINE 0.5% 30 ML SDV ONE (10:07)
--- NOTE | 2018-10-22 10:20 | PDANEPAE ---
ANE History of Present Illness POD 1 s/p JUAN/BSO now with severe abd pain ANE Past Medical History - Cardiovascular History Hx Hypertension: No Hx Arrhythmias: No Hx Chest Pain: No Hx Coronary Artery / Peripheral Vascular Disease: No Hx CHF / Valvular Disease: No Hx Palpitations: No - Pulmonary History Hx COPD: No Hx Asthma/Reactive Airway Disease: No Hx Recent Upper Respiratory Infection: No Hx Oxygen in Use at Home: No Hx Sleep Apnea: No Sleep Apnea Screening Result - Last Documented: Negative - Neurologic History Hx Cerebrovascular Accident: No Hx Seizures: No Hx Dementia: No - Endocrine History Hx Diabetes: No Hypothyroid: No Hyperthyroid: No Obesity: mild - Renal History Hx Renal Disorders: No - Liver History Hx Hepatic Disorders: No - Neurological & Psychiatric Hx Hx Neurological and Psychiatric Disorders: No - Cancer History Hx Cancer: No - Congenital Disorder History Hx Congenital Disorders: No - GI History GERD: no Hx Gastrointestinal Disorders: No - Other Health History Other Health History: fibroids currently. wears reading glasses - Chronic Pain History Chronic Pain: No - Surgical History Prior Surgeries: 07/26/17 right TKA with Repine. 02/12/14 right knee scope with Warren. 05/06/11 Left knee scope with Roter. appi ANE Review of Systems Review of systems is: negative Review of Systems: - Exercise capacity METS (RN): 6 METS ANE Patient History - Allergies Allergies/Adverse Reactions: morphine Allergy (Mild, Verified 10/20/18 14:25) LACK OF EFFECTIVENESS amoxicillin [Amoxicillin] Allergy (Verified 10/20/18 14:25) Rash - Home Medications Home medications: home medication list seen and reviewed Home Medications: Ferrous Sulfate [Ferrous Sulf 325 MG (*)] 325 mg PO DAILY 10/18/18 [Last Taken Unknown] Ibuprofen [Motrin (*)] 200 mg PO DAILY PRN 10/18/18 [Last Taken Unknown] - NPO status NPO Since - Liquids (Date): 10/22/18 NPO Since - Liquids (Time): 09:15 NPO Since - Solids (Date): 10/21/18 NPO Since - Solids (Time): 20:00 - Anes Hx Anes Hx: no prior problems - Smoking Hx Smoking Status: Never smoked - Family Anes Hx Family Hx Anesthesia Complications: none ANE Labs/Vital Signs - Labs Result Diagrams: 10/22/18 09:38 10/22/18 09:38 - Vital Signs Blood Pressure: 130/86 Heart Rate: 134 Respiratory Rate: 20 O2 Sat (%): 88 Height: 165.1 cm Weight: 87.09 kg ANE Physical Exam - Airway Neck exam: FROM Mallampati Score: Class 2 Mouth exam: normal dental/mouth exam - Pulmonary Pulmonary: no respiratory distress - Cardiovascular Cardiovascular: regular rate and rhythym - ASA Status ASA Status: II, E ANE Anesthesia Plan Anesthesia Plan: general endotracheal anesthesia Urgent/Emergent Case: Jack oh completed preop but documented later for safe timely pt care
[2018-10-22] MEDS ORDERED: fentaNYL 100 MCG/2 ML INJ ONE ×3 (10:26→13:02)
[2018-10-22] MEDS ORDERED: PROPOFOL 200 MG/20 ML VIAL ONE ×2 (10:26→12:23)
[2018-10-22] MEDS ORDERED: LIDOCAINE 2% 5 ML SDV ONE (10:28)
[2018-10-22] MEDS ORDERED: ROCURONIUM 50 MG/5 ML VIAL ONE ×2 (10:29→12:27)
[2018-10-22] MEDS ORDERED: MIDAZOLAM 2 MG/2 ML VIAL ONE (10:34)
[2018-10-22] MEDS ORDERED: ceFAZolin 1 GM/5 ML SYR ONE ×2 (10:54→11:59)
[2018-10-22] MEDS ORDERED: HEPARIN 1000 UNIT/1 ML MDV ONE ×2 (10:54→11:58)
--- NOTE | 2018-10-22 11:31 | POSTANESTH ---
Post Anesthetic Evaluation Cardiovascular Status: Normal, Stable, Similar to Pre-Op Cond Respiratory Status: Normal, Stable Level of Consciousness/Mental Status: Can Participate in Eval, Mildly Sleepy, Arousable Pain Control: Adequate, Prn Tx Ordered Nausea/Vomiting Control: Adequate, Prn Tx Ordered Complications Possibly Related to Anesthesia: None Noted
[2018-10-22] MEDS ORDERED: fentaNYL 100 MCG/2 ML INJ IVP PRN (11:54)
[2018-10-22] MEDS ORDERED: ALBUTEROL 3 ML DEYVIAL IH PRN (11:54)
[2018-10-22] MEDS ORDERED: ONDANSETRON 4 MG/2 ML VIAL IVP PRN (11:54)
[2018-10-22] MEDS ORDERED: ACETAMINOPHEN 500 MG TAB PO PRN (11:54)
[2018-10-22] MEDS ORDERED: HYDROCODONE/APAP 5/325 TAB PO PRN (11:54)
[2018-10-22] MEDS ORDERED: METOCLOPRAMIDE 10 MG/2 ML VIAL IVP PRN (11:54)
[2018-10-22] MEDS ORDERED: LR 500 ML IV PRN (11:54)
[2018-10-22] MEDS ORDERED: oxyCODONE IR 5 MG TAB PO PRN (11:54)
[2018-10-22] MEDS ORDERED: NALOXONE HCL 0.4 MG/ML INJ IVP PRN (11:54)
[2018-10-22] MEDS ORDERED: PROMETHAZINE HCL 25 MG/ML INJ IVP PRN (11:54)
[2018-10-22] MEDS ORDERED: KETOROLAC 30 MG/1 ML SDV ONE (12:26)
[2018-10-22] MEDS ORDERED: SUGAMMADEX SODIUM 200 MG/2 ML VIAL IVP ONE (12:27)
[2018-10-22] MEDS ORDERED: HYDROmorphONE/DILAUDID 1 MG/ML INJ IVP PRN ×3 (13:06→17:02)
--- NOTE | 2018-10-22 13:07 | POSTOPPROG ---
Post Op Note Date of Operation: 10/22/18 Surgeon: Ryland Sawyer (Dr. Guillen - Co-surgeon) Anesthesia: GET(General Endotracheal) Pre-op Diagnosis: Acute abdomen Post-op Diagnosis: proximal ileal perforation Indication: Acute abdomen Procedure: Exploratory Laparoscopy, Repair enterotomy Findings: proximal ileal perforation Inf/Abcess present in the surg proc area at time of surgery?: Yes Depth: Organ Space EBL: Minimal Total fluids administered: 900 Complications: none Drains: Glenn Burgos
[2018-10-22] MEDS: HYDROmorphONE/DILAUDID 2 MG/ML INJ IVP PRN ×4 (13:11→14:12)
[2018-10-22] MEDS ORDERED: IBUPROFEN 600 MG TAB PO SCH (13:55)
[2018-10-22] MEDS ORDERED: metroNIDAZOLE 500 MG TAB PO SCH (14:00)
[2018-10-22] MEDS: LR 1,000 ML IV SCH (15:33)
[2018-10-22] MEDS: PANTOPRAZOLE SODIUM 40 MG VIAL IVP SCH (16:42)
[2018-10-22] MEDS: ACETAMINOPHEN 500 MG TAB PO SCH ×2 (16:52→23:15)
--- NOTE | 2018-10-22 17:04 | SOAPPROG ---
SOAP Progress Note Assessment/Plan: Assessment: 1) s/p TLH, BS secondary to menorrhagia and symptomatic uterine fibroids POD # 1 2) s/p Exploratory Laparoscopy, Repair enterotomy POD # 0 Plan: Pt is stable - vss, afebrile Will add Dilaudid for better pain control Up ad анна to bathroom; L ureteral stent in place, no abrams Advance diet very slowly-ice chips for now; wait for flatus Encourage IS and deep breathing SCDs while in bed for DVT prophylaxis 10/22/18 17:11 Subjective: Pt seen and examined. She is c/o stabbing pain in her abdomen, 06/24. States hard to take deep breaths secondary to pain. Just received Toradol. She was up to bathroom once since surgery. Pelon ice chips. Denies any f/c/n/v/CP or SOB. No calf tenderness. Objective: Vital Signs Temp Pulse Resp BP Pulse Ox 37.1 C 106 H 18 133/83 H 96 10/22/18 16:33 10/22/18 16:33 10/22/18 16:33 10/22/18 16:33 10/22/18 16:33 Microbiology 10/22/18 11:18 Gram Stain - Final Peritoneal Fluid - Aspirate Laboratory Results 10/22/18 09:38 10/22/18 09:38 10/21/18 10/22/18 10/23/18 05:59 05:59 05:59 Intake Total 2075 1200 Output Total 2220 650 Balance -145 550 Physical Exam - Physical Exam General Appearance: WD/WN, alert, no apparent distress Respiratory: lungs clear, normal breath sounds Cardiac/Chest: regular rate, rhythm Abdomen: soft, distended (mild), other (diffuse abd tenderness; Laparoscopic incisions C/D/I; bandaids in place; absent bowel sounds) Pelvic Exam: deferred Skin: normal color, warm/dry Extremities: non-tender, normal inspection Neuro/Psych: alert, normal mood/affect, oriented x 3 ICD10 Worksheet Patient Problems: Problems Problem Status Onset Post-operative pain Acute S/P laparoscopic hysterectomy Acute
--- NOTE | 2018-10-22 19:20 | GCON ---
REFERRING PHYSICIAN: Faith Guillen MD The patient underwent a laparoscopic hysterectomy yesterday. A stent was placed in the left ureter. She initially did quite well yesterday afternoon and yesterday evening when she suddenly had the onset of severe abdominal pain. A CAT scan was performed and although it shows free air which would be expected from the surgery yesterday and subcutaneous air and a small amount of fluid in the pelvis, it did not show any evidence of inflammatory bowel change or gallbladder issues. I saw the patient with Dr. Guillen. She had pain that was 10/10 in all quadrants. With cough she did localize more to the right upper quadrant. At this point, I feel that further laboratory and radiographic evaluations will only delay us from an exploration, which I feel is the most appropriate intervention at this time. She is being scheduled for an exploratory laparoscopy/laparotomy. /[id number]/MODL MTDD
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
[2018-10-22] MEDS: PHENAZOPYRIDINE HCL 200 MG TAB PO PRN (21:34)
[2018-10-22] MEDS ORDERED: HYDROmorphONE/DILAUDID 1 MG/ML INJ IVP ONE (22:00)
[2018-10-23] MEDS: HYDROmorphONE/DILAUDID 1 MG/ML INJ IVP PRN ×6 (03:21→10:29)
[2018-10-23 05:08] LABS: PLATELET COUNT 164 10^3/uL (150-400)
[2018-10-23] MEDS: ACETAMINOPHEN 500 MG TAB PO SCH ×3 (05:08→21:00)
[2018-10-23] MEDS: KETOROLAC 30 MG/1 ML SDV IVP SCH ×3 (05:08→17:56)
[2018-10-23] MEDS: LR 1,000 ML IV SCH ×2 (05:14→20:59)
[2018-10-23] MEDS: PHENAZOPYRIDINE HCL 200 MG TAB PO PRN ×2 (05:24→18:00)
[2018-10-23] MEDS: PANTOPRAZOLE SODIUM 40 MG VIAL IVP SCH (07:34)
[2018-10-23] MEDS: ONDANSETRON 4 MG/2 ML VIAL IVP PRN (09:36)
--- NOTE | 2018-10-23 09:54 | ASMTCMCOM ---
CM Note CM Note Notes: Patient admitted for laparascopic hysterectomy, bilateral salpingectomy. She is normally independent and lives w her partner Rochelle. No discharge needs anticipated. Date Signed: 10/23/2018 09:54 AM Electronically Signed By:Alisha Alcantara RN
--- NOTE | 2018-10-23 10:49 | SOAPPROG ---
SOAP Progress Note Assessment/Plan: Assessment: Pain control better. Etiology of mass unclear. Per team discussion will attempt a non surgical treatment plan. Objective: Vital Signs Temp Pulse Resp BP Pulse Ox 36.4 C 91 25 H 175/86 H 95 10/23/18 05:16 10/23/18 05:16 10/23/18 05:16 10/23/18 05:16 10/23/18 05:16 Microbiology 10/22/18 11:18 Gram Stain - Final Peritoneal Fluid - Aspirate Laboratory Results 10/23/18 04:41 10/23/18 04:41 10/22/18 10/23/18 10/24/18 05:59 05:59 05:59 Intake Total 2075 2232 Output Total 2220 745 480 Balance -145 1487 -480 ICD10 Worksheet Patient Problems: Problems Problem Status Onset Post-operative pain Acute S/P laparoscopic hysterectomy Acute
[2018-10-23] MEDS ORDERED: LORazepam 2 MG/ML INJ ONE (11:09)
--- NOTE | 2018-10-23 12:25 | SOAPPROG ---
SOAP Progress Note Assessment/Plan: 10/23/2018 POD#1,2 Assessment: Pain has become an issue again. WBC normal, temp normal, ANAI drainage serous. Doubt missed second perforation and would ascribe pain to residual chemical peritonitis. None the less will continue antibiotics and follow ANAI drainage, peritoneal cultures, cbc Plan: Epidural placed for pain control (successful) Subjective: The pain has kept me from sleeping Objective: Vital Signs Temp Pulse Resp BP Pulse Ox 36.6 C 99 19 127/88 H 98 10/23/18 11:31 10/23/18 11:31 10/23/18 11:31 10/23/18 11:31 10/23/18 11:31 Microbiology 10/22/18 11:18 Gram Stain - Final Peritoneal Fluid - Aspirate Laboratory Results 10/23/18 04:41 10/23/18 04:41 10/22/18 10/23/18 10/24/18 05:59 05:59 05:59 Intake Total 2075 2232 Output Total 2224 745 480 Balance -145 1487 -480 - Time Spent With Patient Time Spent With Patient: 15 - Pending Discharge Pending Discharge Within 24 Hours: No Pending Discharge Within 48 Hours: No Physical Exam - Physical Exam General Appearance: WD/WN, alert, moderate distress Respiratory: lungs clear, normal breath sounds Cardiac/Chest: regular rate, rhythm Abdomen: distended, guarding, other (hypoactive bowel sounds, ANAI drainage decreasing and becoming more serous) Pelvic Exam: deferred Rectal: deferred Back: Normal inspection Skin: normal color, warm/dry Neuro/Psych: alert, normal mood/affect, oriented x 3 ICD10 Worksheet Patient Problems: Problems Problem Status Onset Post-operative pain Acute S/P laparoscopic hysterectomy Acute
[2018-10-23] MEDS ORDERED: NALOXONE HCL 0.4 MG/ML INJ IVP PRN (12:30)
--- NOTE | 2018-10-23 12:43 | PDPAINCON ---
Pain Management Consultation Patient referred by : Digna - Subjective Pain is: high, out of control Activity: out of bed with assistance - Objective Technique: continuous epidural Site: thoracic Continuous infusion: bupivicaine (+ dilaudid) - Assessment/Plan Assessment/Plan: pain well-controlled, continue current mgmt Additional comments: POD #1 s/p exploratory laparoscopy/repair of enterotomy with severe diffuse abdominal pain. Per surgeon request, T9-10 epidural placed for POPC without complication. Patient comfortable after initial test dose and bolus of bupivacaine 0.25% 5ml. Infusion of 0.1% bupivacaine + hydromorphone 10mcg/ml running at 6 ml/hr. Range 4-8ml hr titrated to effect.
[2018-10-23] MEDS: HYDROmorph 10MCG/ML&BUP 0.1% in 100ML NS EP SCH (12:52)
--- NOTE | 2018-10-23 13:28 | SOAPPROG ---
SOAP Progress Note Assessment/Plan: Assessment: 53 y/o s/p TLH, BS POD 2 POD 1 - LSC repair of small ileal perforation found due to RLQ pain episodes post op pain episodes through night post op LSC repair - likely peritoneal irritation - no signs of worsening bacterial peritonitis RLQ pain, not likely a/w stent in left ureter Plan: cautious advancement of diet to optimize bowel healing from repair. TISHA placed for pain control, hopefully now pt can rest CBC 10/22/18 00:15 10/23/18 13:20 Subjective: Pt very tired from couple nights of pain. No nausea or vomiting. Pain episodes were RLQ and right flank. Hasn't been active due to pain episodes. Objective: Vital Signs Temp Pulse Resp BP Pulse Ox 36.6 C 99 19 127/88 H 98 10/23/18 11:31 10/23/18 11:31 10/23/18 11:31 10/23/18 11:31 10/23/18 11:31 Microbiology 10/22/18 11:18 Gram Stain - Final Peritoneal Fluid - Aspirate Laboratory Results 10/23/18 04:41 10/23/18 04:41 10/22/18 10/23/18 10/24/18 05:59 05:59 05:59 Intake Total 2075 2232 Output Total 2220 745 480 Balance -145 1487 -480 Physical Exam - Physical Exam General Appearance: alert (very sleepy, not in real distress currently), obese Respiratory: lungs clear Cardiac/Chest: regular rate, rhythm Abdomen: non-tender (approp post op tenderness), soft, other (ANAI drain with small amount drainage) Skin: normal color, warm/dry Neuro/Psych: normal mood/affect ICD10 Worksheet Patient Problems: Problems Problem Status Onset Post-operative pain Acute S/P laparoscopic hysterectomy Acute - ICD10 Problem Qualifiers (1) Post-operative pain
[2018-10-23] MEDS ORDERED: ALTEPLASE 2 MG VIAL IVP PRN (14:51)
--- NOTE | 2018-10-23 15:03 | PDMN ---
Medical Necessity Medical necessity: MCG: [facility] gastroenterology: Lap repair of small ileal perforation post LSC repair. 2nd OP:exp. laparoscopy with drain placement and repair of enteroscopy with intracorporeal suture repair. Pt still with ongoing pain epidural placed. status changed to INPT for ongoing med. nec, further monitoring and tx of above. > 2mn IVF, IV abx, IV antiemetics, IV protonix, IV pain meds
--- NOTE | 2018-10-23 18:39 | SOAPPROG ---
PIPPA Progress Note Assessment/Plan: Assessment: 53 y/o POD #2 s/p TLH B salpingectomy and placement of Left ureteral stent and POD#1 s/p laparoscopic repair of enterotomy Plan: Pt is slowly improving, VSS and labs are stable. She has a PICC line in place and will continue IV Rocephin and Flagyl. Will consult Urology about timing of stent removal while epidural remains in place early this week. I ordered a K pad, Senna and Pyridium prn tonight. Ice chips tonight and will advance to clear liquids tomorrow. 10/21/18 18:03 10/22/18 10:00 10/23/18 18:40 Subjective: Pt is feeling better now with the epidural in place. She was able to rest this afternoon. She has a low level nausea but no vomiting, tolerating ice chips. She is able to ambulate to the restroom, sit up in the chair and is working on her IS. She has had + flatus. Objective: Vital Signs Temp Pulse Resp BP Pulse Ox 37.0 C 105 H 20 147/78 H 92 10/23/18 18:00 10/23/18 18:00 10/23/18 18:00 10/23/18 18:00 10/23/18 18:00 Microbiology 10/22/18 11:18 Gram Stain - Final Peritoneal Fluid - Aspirate Laboratory Results 10/23/18 04:41 10/23/18 04:41 10/22/18 10/23/18 10/24/18 05:59 05:59 05:59 Intake Total 2075 2232 1145 Output Total 2220 745 660 Balance -145 1487 485 - Pending Discharge Pending Discharge Within 24 Hours: No Pending Discharge Within 48 Hours: No Physical Exam - Physical Exam General Appearance: WD/WN, alert, no apparent distress Neck: non-tender, full range of motion, supple Respiratory: chest non-tender, lungs clear, normal breath sounds Cardiac/Chest: regular rate, rhythm Abdomen: distended (mild), other (hypoactive BS) Extremities: swelling (no), Lula's sign (neg) ICD10 Worksheet Patient Problems: Problems Problem Status Onset Post-operative pain Acute S/P laparoscopic hysterectomy Acute - ICD10 Problem Qualifiers (1) S/P laparoscopic hysterectomy
[2018-10-23] MEDS ORDERED: SENNOSIDES/DOCUSATE SODIUM TAB PO SCH (21:00)
[2018-10-24] MEDS: KETOROLAC 30 MG/1 ML SDV IVP SCH ×4 (00:19→18:36)
[2018-10-24 04:05] LABS: PLATELET COUNT 172 10^3/uL (150-400)
[2018-10-24] MEDS: ACETAMINOPHEN 500 MG TAB PO SCH ×3 (05:55→21:13)
--- NOTE | 2018-10-24 07:54 | SOAPPROG ---
SOAP Progress Note Assessment/Plan: 10/23/2018 POD#1,2 Assessment: Pain has become an issue again. WBC normal, temp normal, ANAI drainage serous. Doubt missed second perforation and would ascribe pain to residual chemical peritonitis. None the less will continue antibiotics and follow ANAI drainage, peritoneal cultures, cbc Plan: Epidural placed for pain control (successful) POD# 2,3 10/24/18 07:49 Assessment: Improved! Passing gas, VSS, +BS, WBC normal, Epidural controlling pain. Plan: Avoid bowel stimulants given repair of enterotomy Continue epidural Continue ANAI Continue antibiotics for at least 24 hours/ check final cultures tomorrow Ambulation - 5 laps, 5x/day attempt clear liquids today - when tolerates two clear liquid meals, will advance to regular diet Subjective: I feel better and I've passed gas! Objective: Vital Signs Temp Pulse Resp BP Pulse Ox 36.9 C 83 13 137/77 H 95 10/24/18 06:00 10/24/18 06:00 10/24/18 06:00 10/24/18 06:00 10/24/18 06:00 Microbiology 10/22/18 11:18 Gram Stain - Final Peritoneal Fluid - Aspirate Laboratory Results 10/24/18 04:00 10/24/18 04:00 10/23/18 10/24/18 10/25/18 05:59 05:59 05:59 Intake Total 2232 1145 Output Total 745 1425 Balance 1487 -280 - Time Spent With Patient Time Spent With Patient: 15 Physical Exam - Physical Exam General Appearance: WD/WN, alert, mild distress Respiratory: lungs clear, normal breath sounds Cardiac/Chest: regular rate, rhythm Abdomen: non-tender, soft, distended, other (hypoactive bowel sounds) Pelvic Exam: deferred Rectal: deferred Back: Normal inspection Skin: normal color, warm/dry Neuro/Psych: no motor/sensory deficits, alert, normal mood/affect, oriented x 3 ICD10 Worksheet Patient Problems: Problems Problem Status Onset Post-operative pain Acute S/P laparoscopic hysterectomy Acute
[2018-10-24] MEDS: PHENAZOPYRIDINE HCL 200 MG TAB PO PRN (08:59)
[2018-10-24] MEDS: PANTOPRAZOLE SODIUM 40 MG VIAL IVP SCH (08:59)
--- NOTE | 2018-10-24 09:38 | SOAPPROG ---
SOAP Progress Note Assessment/Plan: Assessment: 53 y/o POD #3 s/p TLH B salpingectomy and placement of Left ureteral stent and POD#2 s/p laparoscopic repair of enterotomy Plan: Pt is slowly improving, VSS and labs are stable. Continue IV antibiotics until culture is back. Advance to clear liquids today and slowly as tolerated. Consult Urology for possible stent removal while in hospital and with epidural in place. 10/21/18 18:03 10/22/18 10:00 10/23/18 18:40 10/24/18 09:38 Subjective: Pt is feeling better this am. She was able to get good rest last night and has much better pain control with the epidural. She is able to ambulate to the restroom and is able to void without difficulty. She is passing gas and beginning to feel hungry. She is working with the IS and deep breathing and is committed to ambulation today. Objective: Vital Signs Temp Pulse Resp BP Pulse Ox 36.4 C 91 18 151/77 H 93 10/24/18 07:52 10/24/18 07:52 10/24/18 07:52 10/24/18 07:52 10/24/18 07:52 Microbiology 10/22/18 11:18 Gram Stain - Final Peritoneal Fluid - Aspirate Laboratory Results 10/24/18 04:00 10/24/18 04:00 10/23/18 10/24/18 10/25/18 05:59 05:59 05:59 Intake Total 2232 1145 Output Total 745 1425 Balance 1487 -280 Physical Exam - Physical Exam General Appearance: WD/WN, alert, no apparent distress Neck: non-tender, full range of motion, supple Respiratory: chest non-tender, lungs clear, normal breath sounds Cardiac/Chest: regular rate, rhythm Abdomen: other (mi tender, + BS) ICD10 Worksheet Patient Problems: Problems Problem Status Onset Post-operative pain Acute S/P laparoscopic hysterectomy Acute - ICD10 Problem Qualifiers (1) S/P laparoscopic hysterectomy
[2018-10-24] MEDS: DC NARCS MISC SCH (12:43)
[2018-10-24] MEDS: REGARDING ANTICOAG MISC SCH (12:43)
[2018-10-24] MEDS: PROMETHAZINE HCL 25 MG/ML INJ IVP PRN (14:46)
[2018-10-24] MEDS: LR 1,000 ML IV SCH (16:41)
[2018-10-24] MEDS: HYDROmorph 10MCG/ML&BUP 0.1% in 100ML NS EP SCH (19:34)
--- NOTE | 2018-10-24 21:09 | PDPAINCON ---
Pain Management Consultation - Subjective Pain at rest (/10): 4 Pain with activity (/10): 6 Pain is: under control Activity: able to ambulate, out of bed with assistance - Objective Technique: continuous epidural Continuous infusion: bupivicaine (0.1% w dilaudid 10 mcg/ml) Continuous rate (ml/hr): 8 Bolus (ml): 4 Lockout interval (mins): 15 Catheter site: clean, dry, intact, no erythema/edema/exudate Sensory and motor exam: consistent with block, other (T9-pelvis, L>>R) Vital signs: stable - Assessment/Plan Assessment/Plan: pain well-controlled, continue current mgmt Additional comments: Epidural is one-sided, L>>R. Discussed possibility of adjusting/potentially replacing the catheter, pt prefers to maintain the catheter as it is, will revisit the issue tomorrow.
[2018-10-25] MEDS: KETOROLAC 30 MG/1 ML SDV IVP SCH ×5 (01:01→23:21)
[2018-10-25] MEDS: PROMETHAZINE HCL 25 MG/ML INJ IVP PRN (04:50)
[2018-10-25] MEDS: ONDANSETRON 4 MG/2 ML VIAL IVP PRN (05:31)
[2018-10-25] MEDS: HYDROmorph 10MCG/ML&BUP 0.1% in 100ML NS EP SCH ×3 (05:47→23:20)
[2018-10-25 06:33] LABS: PLATELET COUNT 184 10^3/uL (150-400)
[2018-10-25] MEDS: REGARDING ANTICOAG MISC SCH (07:56)
[2018-10-25] MEDS: DC NARCS MISC SCH (07:56)
[2018-10-25] MEDS: LR 1,000 ML IV SCH ×3 (08:16→23:22)
[2018-10-25] MEDS: ACETAMINOPHEN 500 MG TAB PO SCH ×4 (08:30→21:47)
[2018-10-25] MEDS: PANTOPRAZOLE SODIUM 40 MG VIAL IVP SCH (08:36)
--- NOTE | 2018-10-25 08:36 | SOAPPROG ---
SOAP Progress Note Assessment/Plan: Assessment: 53yo F s/p lap hyst c/b small bowel injury c peritonitis s/p washout and primary repair - VSS, HDS - WBC remains WNL. Would cont BS abx for at least a week total. ANAI is in place and is SS. Will keep until she is eating - abdominal exam per report is better, she is soft and appropriately tender. She has no bowel sounds. - She wants to eat, given that she vomited this AM will cont CLD for breakfast, will check in later and see if ready to progress but wouldnt be surprised by prolonged ileus. - continue ambulation Plan: 10/25/18 08:33 Subjective: vomited this AM, pain better controlled with epidural now Objective: Vital Signs Temp Pulse Resp BP Pulse Ox 36.8 C 78 13 159/87 H 89 L 10/25/18 08:00 10/25/18 08:00 10/25/18 08:00 10/25/18 08:00 10/25/18 08:00 Microbiology 10/22/18 11:18 Gram Stain - Final Peritoneal Fluid - Aspirate Laboratory Results 10/25/18 05:45 10/25/18 05:45 10/24/18 10/25/18 10/26/18 05:59 05:59 05:59 Intake Total 1145 370 Output Total 1425 1040 Balance -280 -670 ICD10 Worksheet Patient Problems: Problems Problem Status Onset Post-operative pain Acute S/P laparoscopic hysterectomy Acute
--- NOTE | 2018-10-25 11:31 | PDPAINCON ---
Pain Management Consultation - Subjective Pain at rest (/10): 2 Pain with activity (/10): 4 Pain is: under control Side effects include: nausea, nausea/vomiting, No drowsy, No itchiness Activity: able to ambulate - Objective Technique: continuous epidural Site: thoracic Catheter site: clean, dry, intact, no erythema/edema/exudate Sensory and motor exam: consistent with block, dermatomal level (T9-pelvis, L>>R ) Vital signs: stable - Assessment/Plan Assessment/Plan: pain well-controlled, continue current mgmt Additional comments: Pt has improved pain control overnight. Appreciates that the bolus button works has pressed it 4 times in the last shift. Rate currently 8mo/hr w 4 ml bolus q15. Still struggling with keeeping down clears, plan to begin to dial back and remove epidural once PO has advanced to solids. Discussed plan with pt and she agrees.
--- NOTE | 2018-10-25 11:56 | SOAPPROG ---
SOAP Progress Note Assessment/Plan: Assessment: 53 y/o POD #4 s/p TLH B salpingectomy and placement of Left ureteral stent and POD#3 s/p laparoscopic repair of enterotomy Plan: Bowel function is slowing improving. Will continue clear liquids until she is tolerating well and will advance as tolerated. I recommend keeping the epidural in place until she is able to tolerate regular diet and then will transition to po pain meds. BP is elevated, which is not normal for her. May be related to pain and fluid shifts with ileus. We will monitor closely. Continue IV Rocephin and Flagyl. WBC remains stable and she remains afebrile, no ongoing signs of infection. 10/21/18 18:03 10/22/18 10:00 10/23/18 18:40 10/24/18 09:38 10/25/18 11:56 Subjective: Pt is in good spirits today, feeling like she is turning a corner. Her nausea has improved today, although she did have an episode of vomiting this am. Now she is tolerating reg diet. She had a large BM last night and continues to have + flatus. Her pain is controlled with the epidural, however she continues to have tenderness in her right upper quadrant. She denies pelvic pain or VB, and bladder spasms are improved with pyridium. She has walked the hallways this am and plans to do it again later and will also take a shower. Objective: Vital Signs Temp Pulse Resp BP Pulse Ox 37.2 C 84 16 174/82 H 92 10/25/18 11:38 10/25/18 11:38 10/25/18 11:38 10/25/18 11:38 10/25/18 11:38 Microbiology 10/22/18 11:18 Gram Stain - Final Peritoneal Fluid - Aspirate Laboratory Results 10/25/18 05:45 10/25/18 05:45 10/24/18 10/25/18 10/26/18 05:59 05:59 05:59 Intake Total 1145 370 Output Total 1425 1040 Balance -280 -670 - Pending Discharge Pending Discharge Within 24 Hours: No Pending Discharge Within 48 Hours: Yes Pending Discharge Date: 10/27/18 Pending Discharge Time: 11:00 Physical Exam - Physical Exam General Appearance: WD/WN, alert, no apparent distress Neck: non-tender, full range of motion, supple Respiratory: chest non-tender, lungs clear, normal breath sounds Cardiac/Chest: regular rate, rhythm Abdomen: other (hypoactive BS, incisions c/d/i, serous drainage from ANAI) Extremities: swelling (no), Lula's sign (neg) ICD10 Worksheet Patient Problems: Problems Problem Status Onset Post-operative pain Acute S/P laparoscopic hysterectomy Acute - ICD10 Problem Qualifiers (1) S/P laparoscopic hysterectomy
[2018-10-25] MEDS: PHENAZOPYRIDINE HCL 200 MG TAB PO PRN (21:55)
[2018-10-26] MEDS: KETOROLAC 30 MG/1 ML SDV IVP SCH ×2 (05:29→12:23)
--- NOTE | 2018-10-26 07:34 | SOAPPROG ---
SOAP Progress Note Assessment/Plan: Assessment: 53yo F s/p lap hyst c/b small bowel injury c peritonitis s/p washout and primary repair - VSS, HDS - abdominal exam remains reassuring. She is having bowel function, no nausea. Will advance diet - leave ANAI until she eats, remove tomorrow. - Epidural today, wean. Likely out tomorrow. Discussed with anesthesia this AM - continue ambulation - continue abx for week total course Plan: 10/25/18 08:33 10/26/18 07:33 Subjective: wants to eat Objective: Vital Signs Temp Pulse Resp BP Pulse Ox 36.8 C 76 18 160/83 H 92 10/26/18 04:00 10/26/18 04:00 10/26/18 04:00 10/26/18 04:00 10/26/18 04:00 Microbiology 10/22/18 11:18 Gram Stain - Final Peritoneal Fluid - Aspirate Laboratory Results 10/25/18 05:45 10/25/18 05:45 10/25/18 10/26/18 10/27/18 05:59 05:59 05:59 Intake Total 370 2375 Output Total 1560 1582 Balance -304 793 ICD10 Worksheet Patient Problems: Problems Problem Status Onset Post-operative pain Acute S/P laparoscopic hysterectomy Acute
[2018-10-26] MEDS: HYDROmorph 10MCG/ML&BUP 0.1% in 100ML NS EP SCH (09:47)
[2018-10-26] MEDS: ONDANSETRON 4 MG/2 ML VIAL IVP PRN (10:15)
[2018-10-26] MEDS: PANTOPRAZOLE SODIUM 40 MG VIAL IVP SCH (10:16)
[2018-10-26] MEDS: ACETAMINOPHEN 500 MG TAB PO SCH ×3 (11:34→21:44)
[2018-10-26] MEDS: DC NARCS MISC SCH (11:35)
[2018-10-26] MEDS: REGARDING ANTICOAG MISC SCH (11:35)
[2018-10-26] MEDS ORDERED: METOCLOPRAMIDE 10 MG TAB PO PRN (13:09)
--- NOTE | 2018-10-26 13:14 | SOAPPROG ---
SOAP Progress Note Assessment/Plan: Assessment: 53 y/o POD #5 s/p TLH B salpingectomy and placement of Left ureteral stent and POD#4 s/p laparoscopic repair of enterotomy Plan: Bowel function is slowing improving. Will advance to reg diet and po Ibuprofen and Reglan. I recommend keeping the epidural in place until she is able to tolerate regular diet and then will transition to po pain meds, likely remove ANAI tomorrow and then remove epidural and transition to po pain meds. BP is elevated, which is not normal for her. May be related to pain and fluid shifts with ileus. We will monitor closely. Continue IV Rocephin and Flagyl will d/c home with orals to complete 7 day course. WBC remains stable and she remains afebrile, no ongoing signs of infection. 10/21/18 18:03 10/22/18 10:00 10/23/18 18:40 10/24/18 09:38 10/25/18 11:56 10/26/18 13:12 Subjective: She continues to improve daily. She is tolerating small amounts of reg diet. + BM and flatus. Nausea is transient but not completely resolved. She is ambulating in the hallway and voiding without difficulty. She has had small amounts of spotting sm clots. Objective: Vital Signs Temp Pulse Resp BP Pulse Ox 36.8 C 71 18 169/88 H 90 L 10/26/18 11:28 10/26/18 11:28 10/26/18 11:28 10/26/18 11:28 10/26/18 11:28 Microbiology 10/22/18 11:18 Gram Stain - Final Peritoneal Fluid - Aspirate Laboratory Results 10/25/18 05:45 10/25/18 05:45 10/25/18 10/26/18 10/27/18 05:59 05:59 05:59 Intake Total 370 2375 Output Total 1040 1582 Balance -670 793 - Pending Discharge Pending Discharge Within 24 Hours: Yes Pending Discharge Date: 10/27/18 Pending Discharge Time: 11:00 Physical Exam - Physical Exam General Appearance: WD/WN, alert, no apparent distress Neck: full range of motion, supple Respiratory: chest non-tender, lungs clear, normal breath sounds Cardiac/Chest: regular rate, rhythm Abdomen: normal bowel sounds, other (incisions c/d/i) Extremities: swelling (no), Lula's sign (neg) ICD10 Worksheet Patient Problems: Problems Problem Status Onset Post-operative pain Acute S/P laparoscopic hysterectomy Acute - ICD10 Problem Qualifiers (1) S/P laparoscopic hysterectomy
--- NOTE | 2018-10-26 13:59 | ASMTCMCOM ---
CM Note CM Note Notes: CM spoke to AMBERLY Perez. Pt still has the ANAI drain in along w/ epidural. Pt will most likely d/c independent when medically stable. CM available for changes. Plan: Independent Date Signed: 10/26/2018 01:59 PM Electronically Signed By:TANYA Marin
[2018-10-26] MEDS: oxyCODONE IR 5 MG TAB PO PRN ×2 (17:07→21:29)
--- NOTE | 2018-10-26 17:08 | PDPAINCON ---
Pain Management Consultation - Subjective Pain at rest (/10): 2 Pain with activity (/10): 4 Pain is: under control Side effects include: No drowsy, No itchiness, No nausea Activity: able to ambulate - Objective Technique: continuous epidural Site: thoracic Catheter site: clean, dry, intact, no erythema/edema/exudate Sensory and motor exam: consistent with block Vital signs: stable - Assessment/Plan Assessment/Plan: pain well-controlled, continue current mgmt, other (pt has been able to advance diet to PO, will hold PCEA and trial PO medication.) Additional comments: Plan to d/c catheter in the am if she tolerates PO meds. Pain medication per primary surgical team.
[2018-10-26] MEDS: PROMETHAZINE HCL 25 MG/ML INJ IVP PRN (21:28)
[2018-10-26] MEDS: IBUPROFEN 600 MG TAB PO PRN (21:29)
[2018-10-26] MEDS: LR 1,000 ML IV SCH (21:30)
[2018-10-27] MEDS: PHENAZOPYRIDINE HCL 200 MG TAB PO PRN (01:23)
[2018-10-27] MEDS: oxyCODONE IR 5 MG TAB PO PRN ×3 (01:24→10:53)
[2018-10-27] MEDS: IBUPROFEN 600 MG TAB PO PRN ×2 (05:31→10:51)
[2018-10-27] MEDS: ACETAMINOPHEN 500 MG TAB PO SCH (05:39)
[2018-10-27] MEDS: PANTOPRAZOLE SODIUM 40 MG VIAL IVP SCH (08:47)
--- NOTE | 2018-10-27 09:00 | PDPAINCON ---
Pain Management Consultation - Subjective Pain is: under control Activity: able to ambulate - Objective Technique: continuous epidural Site: thoracic Catheter site: clean, dry, intact, no erythema/edema/exudate Sensory and motor exam: block has resolved, no apparent ill effects Vital signs: stable - Assessment/Plan Assessment/Plan: pain well-controlled, continue current mgmt Additional comments: Patient able to tolerate PO meds overnight, used heating pad as adjunct. Epidural catheter removed, atraumatic- tip intact.
[2018-10-27 09:09] VITALS: BP 178/75
--- NOTE | 2018-10-27 10:08 | SOAPPROG ---
SOAP Progress Note Assessment/Plan: Assessment: 53yo F s/p lap hyst c/b small bowel injury c peritonitis s/p washout and primary repair - VSS, HDS - belly looks great, tolerating diet, having bowel function. ANAI removed - pain well controlled with PO, epidural has been off since last evening, removal today - Plan for dc, discussed lifting and bathing restrictions. RTC in 2 weeks for post op - likely will get ureteral stent out in the next few days, she has follow up for this. Plan: 10/25/18 08:33 10/26/18 07:33 10/27/18 10:07 Subjective: feels well, pain is controlled Objective: Vital Signs Temp Pulse Resp BP Pulse Ox 36.8 C 68 16 178/75 H 93 10/27/18 08:00 10/27/18 08:00 10/27/18 08:00 10/27/18 08:00 10/27/18 08:00 Microbiology 10/22/18 11:18 Gram Stain - Final Peritoneal Fluid - Aspirate Laboratory Results 10/25/18 05:45 10/25/18 05:45 10/26/18 10/27/18 10/28/18 05:59 05:59 05:59 Intake Total 2375 150 Output Total 1582 55 Balance 793 95 ICD10 Worksheet Patient Problems: Problems Problem Status Onset Post-operative pain Acute S/P laparoscopic hysterectomy Acute
[2018-10-27] MEDS: DC NARCS MISC SCH (10:17)
[2018-10-27] MEDS: REGARDING ANTICOAG MISC SCH (10:17)
--- NOTE | 2018-10-27 12:58 | SOAPPROG ---
SOAP Progress Note Assessment/Plan: Assessment: 53 y/o POD #6 s/p TLH B salpingectomy and placement of Left ureteral stent and POD#5 s/p laparoscopic repair of enterotomy Plan: Bowel function has returned to relatively normal. She is tolerating reg diet and po pain meds. D/c home today to complete 2 more days of Levaquin and Flagyl. Given Rx Ibuprofen, Oxycodone, Pyridium and Phenergan. I will call [facility] to help facilitate an apt for urethral stent removal, hopefully for tomorrow. She has instructions to call for fever, increased pain, severe nausea/vomiting, vaginal bleeding or any other concerns. Follow-up with me end of next week. 10/21/18 18:03 10/22/18 10:00 10/23/18 18:40 10/24/18 09:38 10/25/18 11:56 10/26/18 13:12 10/27/18 12:54 Subjective: Pt is doing well today. She is tolerating reg diet and po pain meds. She has had +BM and much less nausea. She is ambulating and voiding and is ready to d/ c home. Objective: Vital Signs Temp Pulse Resp BP Pulse Ox 36.8 C 68 16 178/75 H 93 10/27/18 08:00 10/27/18 08:00 10/27/18 08:00 10/27/18 08:00 10/27/18 08:00 Microbiology 10/22/18 11:18 Gram Stain - Final Peritoneal Fluid - Aspirate Laboratory Results 10/25/18 05:45 10/25/18 05:45 10/26/18 10/27/18 10/28/18 05:59 05:59 05:59 Intake Total 2375 150 Output Total 1582 55 Balance 793 95 Physical Exam - Physical Exam General Appearance: WD/WN, alert, no apparent distress Neck: non-tender, full range of motion, supple Respiratory: chest non-tender, lungs clear, normal breath sounds Cardiac/Chest: regular rate, rhythm Abdomen: normal bowel sounds, other (incisions c/d/i) Extremities: swelling (no), Lula's sign (neg) ICD10 Worksheet Patient Problems: Problems Problem Status Onset Post-operative pain Acute S/P laparoscopic hysterectomy Acute - ICD10 Problem Qualifiers (1) S/P laparoscopic hysterectomy
[2018-10-27] MEDS ORDERED: ONDANSETRON DISINTEGRATING 4 MG TAB PO PRN (13:00)
--- NOTE | 2018-10-31 14:07 | PDDCSUM ---
Discharge Summary Discharge Summary: DISCHARGE SUMMARY Date of Admission October 21 Date of Discharge October 27 DISCHARGE DIAGNOSES -menorrhagia status post laparoscopic hysterectomy - enterotomy status post laparoscopic repair HOSPITAL COURSE The patient was admitted and taken to the operating room for uneventful laparoscopic hysterectomy per Dr. Guillen. Postoperative day 1 she had excruciating pain in had consultation from General surgery. She was subsequently taken to the operative suite where a small enterotomy was encountered and repaired. She had slow return of bowel function and had a significant amount of pain requiring pain consultation an epidural placement. After her diet was subsequently advanced, she was subsequently started on oral narcotics and well tolerated. She was discharged home on in stable condition DISCHARGE MEDICATIONS Oxycodone and Phenergan DISPOSITION Home FOLLOW UP Follow up with me in the office in 10-14 days for a general post-operative visit
== END 2018-10-27 13:15 | disposition home or self-care (01) | DRG 742 ==
LOC: F3E 10-21 07:35 → FOB 10-21 16:24 → F3E 10-22 12:11 → OBSVTOIN 10-23 14:42
PROVIDERS: ADMIT Obstetrics & Gynecology; ATTEND Obstetrics & Gynecology
DX: D25.0 Submucous leiomyoma of uterus (principal); D25.1 Intramural leiomyoma of uterus; N92.0 Excessive and frequent menstruation with regular cycle; K91.72 Accidental puncture and laceration of a digestive system organ or structure during other procedure; K65.9 Peritonitis, unspecified
CPT/HCPCS: C1751; C1769; C2617; G0378; J0690; J0696; J1100; J1170; J1885; J2060; J2250; J2405; J2550; J2704; J2765; J2780; J3010; P9041; Q9967; Q9968

== ENCOUNTER 2018-10-28 10:46 | Observation (INO) | payer OTHER ==
[2018-10-28] MEDS ORDERED: ONDANSETRON 4 MG/2 ML VIAL IVP ONE (11:00)
[2018-10-28] MEDS ORDERED: NS 1,000 ML IV ONE (11:00)
[2018-10-28] MEDS ORDERED: HYDROmorphONE/DILAUDID 1 MG/ML INJ ONE (11:06)
[2018-10-28] MEDS ORDERED: HYDROmorphONE/DILAUDID 2 MG/ML INJ IVP ONE (11:16)
[2018-10-28 11:33] LABS: PLATELET COUNT 234 10^3/uL (150-400)
[2018-10-28] MEDS ORDERED: IOPAMIDOL (ISOVUE-300) 100 ML BTL ONE (11:36)
--- NOTE | 2018-10-28 11:55 | EDPHY ---
H & P Time Seen by Provider: 10/28/18 10:59 HPI/ROS: HPI Abdominal pain post surgery. 53-year-old female by private vehicle. This patient underwent a hysterectomy a week ago by Dr. Faith Guillen. This was complicated by a possible laceration of her left ureter. Urology was consulted. She subsequently had a left ureteral stent placed. She was then discharged in doing better but on Wednesday she developed abdominal pain/peritonitis. She came back to the hospital and was taken back to surgery for an exploratory laparotomy by Dr. Faith Guillen and Dr. Sreedhar Sawyer. It was discovered that she had a small perforation of her jejunum. She has been in the hospital since yesterday. She has been on IV Rocephin while in the hospital. She was discharged home yesterday on oral Flagyl and Levaquin. Dr. Kelechi Rojo of the surgical service had been caring for her while in the hospital. She reports that last night she started getting abdominal pain again. She describes this is upper abdominal pain and pain in the area of her left mid abdomen where her ANAI drain was removed just yesterday. I received a call from Dr. Guillen that she was coming back to the emergency department. Dr. Guillen will see this patient in the emergency department shortly but asked that we obtain another CT scan and repeat blood work. The patient has not had a fever. She does complain of increased frequency with urination and burning with urination. Will also paged Dr. Rojo are to come and evaluate the patient. ROS: Constitutional: No fever, no chills. No weakness. Eyes: No discharge. No changes in vision. ENT: No sore throat. No nasal congestion or rhinorrhea. Respiratory: No cough. No shortness of breath. Cardiac: No chest pain, no palpitations. Gastrointestinal: As above, no vomiting, no diarrhea. Genitourinary: No hematuria. As above. Musculoskeletal: No back pain. No neck pain. No myalgias or arthralgias. Skin: No rashes. Neurological: No headache. No focal weakness or altered sensation. Past medical history: Anemia, right knee replacement, appendectomy, bilateral meniscus replacements. As above. Social history: Here with friend. Nonsmoker. No alcohol. Physical Exam: General Appearance: Alert, she appears uncomfortable. This patient is responding to questions appropriately and in full sentences. This patient appears well-hydrated and well-nourished. Eyes: Pupils equal and round no pallor or injection. No lid edema, erythema or injection. Respiratory: There are no retractions, lungs are clear to auscultation with good air movement bilaterally. Cardiovascular: Regular rate and rhythm. No murmur. Gastrointestinal: Abdomen is soft with diffuse tenderness on palpation throughout. Her laparoscopic surgical incisions are clean dry and intact. No purulent drainage from her ANAI site left mid abdomen, no masses, bowel sounds are present. No focal tenderness at McBurney's point. No Swartz sign. Neurological: Motor sensory function is grossly intact. Cranial nerves are normal. Gait is normal. Skin: Warm and dry, no rashes. Musculoskeletal: Neck is supple and nontender. Extremities are symmetrical. All joints range without pain or impingement. Psychiatric: No agitation. No depression. Database: EKG: Imaging: CT scan of abdomen and pelvis with IV contrast: Postsurgical changes. No evidence of perforation. No other significant findings. Results discussed with staff radiologist Dr. Enrique Urrutia. Procedures: Emergency department course: Triage vital signs reviewed. She is afebrile. She was tachycardic in triage. On my evaluation of this patient wall mirror department supervisor shows a narrow complex sinus rhythm with ventricular rate of 88. IV was placed. She was started on IV normal saline with 1 L to be given over the next 1-2 hours. She was initially given 4 mg of IV Zofran for nausea and 1 mg of IV hydromorphone for pain. 11:50 a.m., Urinalysis indicates urinary tract infection. She will be given 2 g of IV Rocephin. She has been cleared for CT imaging and will go shortly. Dr. Rojo paged. 1:00 p.m., the patient has been seen and evaluated by both Dr. Rojo and Dr. Faith Guillen in the emergency department. The patient will be admitted under the care of Dr. Rojo The patient has received 2 g of IV Rocephin. CT scan results discussed with both Dr. Rojo and Dr. Guillen. Plan for urology consultation to have her ureteral stent removed will be arranged through Dr. Guillen and Dr. Rojo. I have consulted with Infectious Disease, Dr. Livier Wilson. She will consult regarding infected urine. She agrees with IV Rocephin given in the emergency department as above. 1:10 p.m., patient re-evaluated, her pain is currently well controlled. I discussed results of her CT scan, blood work and urinalysis with her. All of her questions were answered. She was admitted under the care of Dr. Gonzalez in stable condition. Differential Diagnosis: The differential diagnosis on this patient includes but is not limited to peritonitis, bowel perforation, urinary tract infection. This represents a partial list of diagnoses considered. These considerations are based on history , physical exam, past history, reassessment and diagnostic testing. Smoking Status: Never smoked Constitutional: Initial Vital Signs Temperature (C) 36.6 C 10/28/18 10:58 Heart Rate 123 H 10/28/18 10:58 Respiratory Rate 20 10/28/18 10:58 Blood Pressure 134/89 H 10/28/18 10:58 O2 Sat (%) 92 10/28/18 10:58 O2 Delivery Mode Room Air O2 (L/minute) 2 Allergies/Adverse Reactions: morphine Allergy (Mild, Verified 10/20/18 14:25) LACK OF EFFECTIVENESS amoxicillin [Amoxicillin] Allergy (Verified 10/20/18 14:25) Rash Home Medications: Medication Instructions Recorded Ferrous Sulfate [Ferrous Sulf 325 325 mg PO DAILY 10/18/18 MG (*)] Ibuprofen [Motrin (*)] 600 mg PO Q6HRS PRN #30 tab 10/27/18 Phenazopyridine HCl [Pyridium] 200 mg PO PC PRN #30 tab 10/27/18 Promethazine HCl [Phenergan 12.5mg 12.5 mg PO HS PRN #20 tablet 10/27/18 tab] metroNIDAZOLE [Flagyl 500 mg (*)] 500 mg PO BID #4 tab 10/27/18 oxyCODONE IR [Oxycodone Ir (*)] 5 - 10 mg PO Q4HRS PRN #20 tab 10/27/18 levOFLOXACIN [Levaquin] 500 mg PO DAILY #2 tablet 10/30/18 Medical Decision Making - Data Points Laboratory Results: Laboratory Results 10/28/18 11:23 10/28/18 11:23 Medications Given: Discontinued Medications Acetaminophen (Tylenol) 650 mg PO Q4HRS PRN PRN Reason: Pain, Mild/Fever, Can Take PO Stop: 06/12/19 13:00 Last Admin: 10/28/18 23:58 Dose: 650 mg Hydromorphone HCl (Dilaudid) 1 mg IVP EDNOW ONE Stop: 10/28/18 11:17 Last Admin: 10/28/18 11:18 Dose: 1 mg Hydromorphone HCl (Dilaudid) 0.2 - 0.4 mg IVP Q2HRS PRN PRN Reason: Pain, Severe Unable to Take PO Stop: 11/07/18 13:00 Last Admin: 10/28/18 14:04 Dose: 0.4 mg Sodium Chloride (Ns) 1,000 mls @ 0 mls/hr IV EDNOW ONE; Wide Open PRN Reason: Protocol Stop: 10/28/18 11:01 Last Admin: 10/28/18 11:16 Dose: 1,000 mls Ceftriaxone Sodium 2 gm/ (Sodium Chloride) 50 mls @ 100 mls/hr IV EDNOW ONE PRN Reason: Protocol Stop: 10/28/18 12:13 Last Admin: 10/28/18 13:12 Dose: 50 mls Potassium Chloride/Dextrose/Sod Cl (D5w 1/2 Ns W/ 20 Kcl/L) 1,000 mls @ 50 mls/ hr IV CONT CARL Stop: 04/26/19 13:14 Last Admin: 10/28/18 13:40 Dose: 1,000 mls Piperacillin/Tazobactam/Dextrose (Zosyn (Premix)) 100 mls @ 200 mls/hr IV Q6HRS CARL PRN Reason: Protocol Stop: 11/27/18 17:29 Last Admin: 10/30/18 10:25 Dose: 100 mls Iopamidol (Isovue-M 300) Confirm Administered Dose 15 ml .ROUTE .STK-MED ONE Stop: 10/29/18 07:24 Last Admin: 10/29/18 08:30 Dose: 15 ml Ketorolac Tromethamine (Toradol) 15 mg IVP Q6HRS [facility] Stop: 11/02/18 17:59 Last Admin: 10/29/18 11:42 Dose: 15 mg Lidocaine (Uroject Lidocaine 2% Jelly) Confirm Administered Dose 20 ml .ROUTE .STK-MED ONE Stop: 10/29/18 07:23 Last Admin: 10/29/18 09:09 Dose: Not Given Metoclopramide HCl (Reglan Injection) 10 mg IVP Q6HRS CARL Stop: 04/26/19 13:00 Last Admin: 10/30/18 06:08 Dose: Not Given Midazolam HCl (Versed) 2 mg IVP ONCALL ONE Stop: 10/29/18 07:46 Last Admin: 10/29/18 08:08 Dose: 2 mg Ondansetron HCl (Zofran) 4 mg IVP EDNOW ONE Stop: 10/28/18 11:01 Last Admin: 10/28/18 11:17 Dose: 4 mg Oxycodone HCl (Oxycodone Ir) 5 - 10 mg PO Q3HRS PRN PRN Reason: Pain, Severe Able to Take PO Stop: 11/07/18 13:00 Last Admin: 10/28/18 22:28 Dose: 5 mg Promethazine HCl (Phenergan) 6.25 - 12.5 mg IVP Q6HRS PRN PRN Reason: Nausea/Vomiting, Use 2nd Stop: 04/26/19 13:00 Last Admin: 10/30/18 01:57 Dose: 6.25 mg Senna/Docusate Sodium (Senokot-S) 1 - 2 tab PO BID CARL PRN Reason: Protocol Stop: 04/26/19 20:59 Last Admin: 10/30/18 09:40 Dose: Not Given Point of Care Test Results: Chemistry 10/28/18 11:29 POC Sodium 136 mEq/L mEq/L (135-145) POC Potassium 3.5 mEq/L mEq/L (3.3-5.0) POC Chloride 97 mEq/L mEq/L (97-110) POC BUN < 3 mg/dL L mg/dL (7-23) POC Creatinine 0.9 mg/dL mg/dL (0.6-1.0) POC Glucose 143 mg/dL H mg/dL (70-100) ISTAT H&H 10/28/18 11:29 POC Hgb 12.9 gm/dL gm/dL (12.6-16.3) POC Hct 38 % % (38-47) Departure - Departure Disposition: [facility] Acute Clinical Impression: Urinary tract infection, Postoperative abdominal pain, S/P ureteral stent placement Condition: Good
[2018-10-28 11:57] LABS: INR 1.17 (0.83-1.16); PROTIME(PATIENT) 15.1 SEC (12.0-15.0)
[2018-10-28] MEDS ORDERED: IBUPROFEN 200 MG TAB PO PRN (13:01)
[2018-10-28] MEDS ORDERED: ONDANSETRON DISINTEGRATING 4 MG TAB PO PRN (13:01)
[2018-10-28] MEDS ORDERED: ONDANSETRON 4 MG/2 ML VIAL IVP PRN (13:01)
[2018-10-28] MEDS ORDERED: ACETAMINOPHEN 325 MG TAB PO PRN (13:01)
[2018-10-28] MEDS ORDERED: HYDROmorphONE/DILAUDID 1 MG/ML INJ IVP PRN (13:01)
[2018-10-28] MEDS ORDERED: BISACODYL 10 MG SUPP PR PRN (13:05)
[2018-10-28] MEDS ORDERED: MAGNESIUM HYDROXIDE 30 ML UDCUP PO PRN (13:05)
[2018-10-28] MEDS ORDERED: POLYETHYLENE GLYCOL 3350 17 GM PKT PO PRN (13:05)
[2018-10-28] MEDS ORDERED: D5W 1/2 NS W/ 20 KCl/L 1,000 ML IV SCH (13:15)
[2018-10-28] MEDS ORDERED: PHENAZOPYRIDINE HCL 200 MG TAB PO PRN (13:32)
[2018-10-28] MEDS: METOCLOPRAMIDE 10 MG/2 ML VIAL IVP SCH ×3 (13:45→23:58)
--- NOTE | 2018-10-28 13:46 | GHP ---
DATE OF ADMISSION: 10/28/2018 CHIEF COMPLAINT: Abdominal pain with nausea. HISTORY OF PRESENT ILLNESS: This is a 53-year-old female who was just discharged from an admission which was complicated. Briefly, the patient underwent elective laparoscopic hysterectomy on the , by Dr. Guillen for menorrhagia and symptomatic fibroids. The following day, she had a significant amount of abdominal pain and had evaluation from General Surgery and was subsequently taken back to the operating room that afternoon for laparoscopic exploration, where a small enterotomy was identified and subsequently fixed. She had a prolonged hospital course. She had a significant amount of pain which was initially well controlled with an epidural. She also had very slow advancement of bowel function. Eventually, her pain was well controlled on orals. Her epidural was discontinued and she was having bowel function and tolerating a regular diet. She was subsequently discharged home yesterday. Briefly, in the interim, she states that she felt well. She ate some [employer] food, had a decent night initially, but woke up about every 3 or 4 hours with worsening pelvic pain and back pain. The pain got worse. She decided to present here for further workup. She denies having fevers or chills. She describes her pain as sharp in the pelvis, worse with palpation, and sort of dull, achy in her back. Both are worse with activity. She has had intermittent nausea, but no vomiting. No fevers or chills. PAST MEDICAL HISTORY: Significant for allergic rhinitis, dysmenorrhea, hemorrhoids. SURGICAL HISTORY: Significant for appendectomy, arthroscopic knee surgery bilaterally, knee replacement on the right, laparoscopic hysterectomy a week ago , laparoscopic exploration with enterotomy repair 1 week ago as well. CURRENT MEDICATIONS: Reviewed. No active blood thinners. Is still on Levaquin and Flagyl from discharge. ALLERGIES: Amoxicillin and morphine. FAMILY HISTORY: Noncontributory. REVIEW OF SYSTEMS: A full 10-point review was performed. PHYSICAL EXAMINATION: VITAL SIGNS: Temperature 36.6, blood pressure 170/80, heart rate is 88. She is 95% on room air. CONSTITUTIONAL: She is in mild distress and appears uncomfortable. EYES: Her pupils are equal, round, reactive to light and accommodation. She has anicteric sclerae and her extraocular movements are intact. EARS/NOSE/MOUTH/THROAT: She has dry mucous membranes. Her hearing is normal, her ears are normal and she has no oral mucosal ulcers. CARDIOVASCULAR: She has a regular rate and rhythm, without any murmurs, rubs or gallops. RESPIRATORY: She has no respiratory distress, rales or rhonchi. GI: Her incisions are bruised, but healing appropriately and covered with Steri-Strips. She is tender in the pelvis. No rebound tenderness. Some guarding. SKIN: Warm. Other than the bruises on her abdomen , is normal color without rashes. MUSCULOSKELETAL: Full strength. No tenderness. NEUROLOGIC: She is alert and oriented x3. Her cranial nerves 2- 12 are intact. She has no weakness, no numbness. PSYCH: Interacting appropriately. She is not anxious or encephalopathic. LYMPH/HEME/IMMUNOLOGIC: No cervical, groin or supraclavicular lymphadenopathy. LABORATORY DATA: White blood cell count normal, no left shift; H and H stable at 12 and 36. INR is 1.17. Chemistry is largely unremarkable; she does have an elevated AST and ALT, creatinine is normal at 0.9, sodium is 136 and her potassium is 3.5. Urine is positive for nitrites and leukocyte esterase with red and white cells. IMAGING: CT scan of the abdomen and pelvis was performed. These images were personally reviewed. No intraabdominal free air or free fluid. There is a small loop of small bowel which is mildly inflamed, but there are no other significant findings or worrisome findings. ASSESSMENT AND PLAN: 53-year-old female, status post laparoscopic hysterectomy complicated by enterotomy status post repair, now returning with abdominal pain. Objectively, all the data is reassuring, normal white count. She was initially tachycardic on arriving here, but this has resolved. I do feel that there is a little underlying anxiety driving some of this. Pain has always been an issue. It was difficult to control her pain initially postoperatively and she is having a significant amount of it now. Will plan to continue intravenous narcotics as needed. Will start a bowel regimen. She has ureteral stent still in place, which I think needs to be removed, given the fact that she still has grossly positive urine despite fairly broad-spectrum antibiotics. Will actually have Infectious Disease consult to see if they have any recommendations as to changing antibiotics. She did receive intravenous ceftriaxone in the emergency department. Will continue to watch her closely. If her abdomen continues to get worse despite maximal efforts, she will likely need to go back to the operating room. It is unclear to me right now what pathology she would have in there given overall reassuring CT scan, but if she worsens, that would be the next step. I discussed these findings with Dr. Guillen and Dr. Gar. /[id number]/MODL MTDD
[2018-10-28] MEDS: PROMETHAZINE HCL 25 MG/ML INJ IVP PRN (16:52)
[2018-10-28] MEDS: oxyCODONE IR 5 MG TAB PO PRN ×2 (16:52→22:28)
--- NOTE | 2018-10-28 17:34 | GCON ---
INFECTIOUS DISEASE CONSULTATION REFERRING PHYSICIAN: Kelechi Gonzalez MD REASON FOR CONSULTATION: Query antibiotic management of UTI versus peritonitis. HISTORY OF PRESENT ILLNESS: This is a 53-year-old woman whose current problems date back to 10/21, when she underwent a total laparoscopic hysterectomy with bilateral salpingectomy with stent placement on the left ureter for possible injury. Procedure was being performed for heavy menses due to large fibroid. Postoperatively, patient describes the worst abdominal pain that she has ever had, describing it as a 30/10, stating that she has never described pain over 10 in her entire life. She subsequently was found to have a proximal ileal perforation and underwent repair on 10/22/2018. Peritoneal fluid was collected at that time, and culture has remained negative. Postoperatively, patient was started on ceftriaxone and metronidazole, which she received from the to the . A PICC line was placed on the , and she describes having ongoing severe postoperative pain, eventually requiring an epidural. Her urinary catheter was in place and removed approximately on 10/22. The patient was discharged on the and does state that she was feeling better. She took 1 dose of Levaquin and Flagyl today. The reason she returned to the emergency room is persistent left lower quadrant pain and upper right quadrant pain not relieved with oxycodone, and she felt the pain was becoming progressive. Therefore, she returned to the emergency room. She also describes urinary frequency, urinating every hour, and pressure over her bladder that is severe and worse on the left side. No fevers, chills, night sweats. Her appetite is low, and she has not had a bowel movement since 3 days ago, despite taking a couple doses of MiraLAX. REVIEW OF SYSTEMS: A complete 10-point review of systems was performed and is negative, except as mentioned in the HPI. ALLERGIES: Amoxicillin. She developed a localized abdominal rash, not hives, approximately 7 years ago when she took amoxicillin for a dental procedure. No airway issues. MEDICATIONS: No anticoagulants or steroids. She received 2 g of ceftriaxone in the emergency room. PAST MEDICAL HISTORY: Adrenal adenoma, allergic rhinitis, dysmenorrhea, hemorrhoids. PAST SURGICAL HISTORY: Appendectomy, arthroscopic surgery, left knee and right knee, and subsequent right knee replacement, 07/2017. 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 She is partnered with a woman. Current occasional alcohol. No tobacco. FAMILY HISTORY: Positive for breast cancer, colon cancer, stroke, hypertension , dementia, coronary artery disease. PHYSICAL EXAM: VITAL SIGNS: BP 170/95, heart rate 93-123, respiratory rate 16 , saturation 95% on room air, temperature 36.6. GENERAL: This is a nontoxic- appearing woman lying flat in bed. No acute distress. HEENT: Pale conjunctivae. No conjunctival lesions. Oropharynx: Excellent dentition. Slightly dry mucous membranes. NECK: Supple. CARDIOVASCULAR: Regular rate at the time of my exam. No murmur. CHEST: Excellent air movement. Clear bilaterally. ABDOMEN: She has ecchymosis on her abdomen, consistent with prior surgeries around laparoscopic incisions. She has mild distention, hyperactive bowel sounds. She has diffuse tenderness to palpation, but most prominently left pelvic region, with mild rebound and right upper quadrant, also with some mild rebound. No clear flank pain. EXTREMITIES: No clubbing, cyanosis, or edema. NEUROLOGICAL: She is alert and oriented x4. Has fluent speech and is moving all 4 extremities equally. LABORATORY: White count 6.2, hematocrit 36, platelets of 234, 69% neutrophils. Blood and urine cultures from today are pending. Her AST is 140, ALT 152. Creatinine is 0.8. Alkaline phosphatase was normal. IMAGING: A CT scan was personally reviewed by me with Radiology from 2017. It shows some mild mesenteric stranding, no focal abscess, mild common bile duct dilation, a left ureteral stent, which is left ureter to the bladder, without hydronephrosis, some small bilateral pleural effusions. The gallbladder appeared normal. ASSESSMENT AND PLAN: This is a 53-year-old woman who underwent a hysterectomy complicated by perforated ileum, who has persistent abdominal pain, elevated liver function tests. Her pain primarily localizes to left lower quadrant, and laboratory evaluation shows significant pyuria. The patient does have symptoms suggestive of urinary tract infection, including urinary frequency, bladder pressure and left pelvic pain. In addition, patient has a transaminitis and mild right upper quadrant pain, which would be an atypical combination for biliary/gallbladder disease. My primary concerns include urinary tract infection, not covered by current regimens, which would include enterococcus and more resistant gram-negative rods, such as Pseudomonas. Also could consider cholecystitis, although this seems less likely based on CT scan imaging. Finally, could consider peritonitis relating to hysterectomy due to more atypical organisms, such as mycobacterium genitalium. 1. Reviewed antibiotic allergies with patient, and she understands the risks and benefits of re-confronting her with a penicillin class antibiotic. Patient did not have symptoms of type 1 hypersensitivity. Therefore, is reasonable to re -try high-dose Zosyn as this would be the ideal agent to cover for more resistant gram-negative rods, as well as Enterococcus. 2. Would obtain a right upper quadrant ultrasound to better delineate the common bile duct. 3. Will ask Microbiology if a sample remains to send for mycoplasma testing. 4. Due to pain localizing to her left pelvic region, I think that removing the stent is in her best interest. I do not think that this is the source of her infection, but certainly would prevent complete resolution of infection and may be causing her left flank pain. Time was 85 minutes, greater than 50% of time spent in education and counseling of the patient, coordination of care with EMPLOYMENT DIRECTOR and General Surgery, as well as Emergency Room and Radiology. Will continue to follow the patient and evaluate further regarding antibiotic changes and culture results. /[id number]/MODL MTDD
[2018-10-28] MEDS: PIPERACILLIN/TAZO 4.5 GM/DEX 100 ML IV SCH ×2 (17:35→23:58)
[2018-10-28] MEDS: KETOROLAC 15 MG/1 ML SDV IVP SCH ×2 (17:35→23:59)
--- NOTE | 2018-10-28 19:01 | SOAPPROG ---
SOAP Progress Note Assessment/Plan: Assessment: 53 y/o POD #7 s/p TLH BS and placement of L ureteral stent POD #6 s/p laparoscopic repair of proximal jejunal enterotomy Plan: Increased pain and evidence of UTI despite broad spectrum antibiotics in patient and outpatient. Appreciate ID input on broadening the spectrum of coverage and awaiting Urology consult in regards to removal of the left ureteral stent. Abdominal ultrasound reassuring for normal gallbladder despite elevated LFT's, repeat CBC abd CMP in am. CT reassuring for no acute injury, likely functional ileus with slow return to function s/p enterotomy repair. Maintain clear liquid diet. Anti-emetics and observation. Will follow with Gen Surgery and ID. 10/28/18 19:02 Subjective: Pt has improved this evening. She continues to have abdominal pain in LLQ and Left flank as well as Right upper quadrant. She reports her nausea has improved and she is tolerating clear liquids. Some gas movement and + flatus, but no BM despite bowel regimen. Her urinary frequency, urgency and dysuria remain her most distressing problem. Objective: Vital Signs Temp Pulse Resp BP Pulse Ox 36.9 C 81 16 158/85 H 97 10/28/18 17:18 10/28/18 17:22 10/28/18 17:22 10/28/18 17:22 10/28/18 17:22 10/27/18 10/28/18 10/29/18 05:59 05:59 05:59 Intake Total 50 Balance 50 PT 15.1 SEC (12.0-15.0) H 10/28/18 09:48 INR 1.17 (0.83-1.16) H 10/28/18 09:48 Physical Exam - Physical Exam General Appearance: WD/WN, alert, no apparent distress Neck: non-tender, full range of motion, supple Respiratory: chest non-tender, lungs clear, normal breath sounds Cardiac/Chest: regular rate, rhythm Abdomen: distended (mild), other (hypoactive BS, tender over upper abdomen and lower LQ) Pelvic Exam: vaginal bleeding (no) Extremities: swelling (no), Lula's sign (neg) ICD10 Worksheet Patient Problems: Problems Problem Status Onset Postoperative abdominal pain Acute S/P ureteral stent placement Acute Post-operative pain Acute S/P laparoscopic hysterectomy Acute
[2018-10-28] MEDS: SENNOSIDES/DOCUSATE SODIUM TAB PO SCH (22:28)
[2018-10-29 05:34] LABS: PLATELET COUNT 196 10^3/uL (150-400)
[2018-10-29] MEDS: KETOROLAC 15 MG/1 ML SDV IVP SCH ×2 (06:06→11:42)
[2018-10-29] MEDS: METOCLOPRAMIDE 10 MG/2 ML VIAL IVP SCH ×3 (06:06→17:56)
[2018-10-29] MEDS: PIPERACILLIN/TAZO 4.5 GM/DEX 100 ML IV SCH ×4 (06:06→23:28)
[2018-10-29] MEDS ORDERED: LIDOCAINE 2% JELLY 20 ML (UROJECT) ONE (07:22)
[2018-10-29] MEDS ORDERED: IOPAMIDOL (ISOVUE-M 300) 15 ML VIAL ONE (07:23)
[2018-10-29] MEDS ORDERED: DEXAMETHASONE 4 MG/ML VIAL ONE (07:30)
[2018-10-29] MEDS ORDERED: ONDANSETRON 4 MG/2 ML VIAL ONE (07:30)
[2018-10-29] MEDS ORDERED: fentaNYL 250 MCG/5 ML INJ ONE (07:30)
[2018-10-29] MEDS ORDERED: LIDOCAINE 2% 2 ML INJ ONE (07:30)
[2018-10-29] MEDS ORDERED: PROPOFOL 200 MG/20 ML VIAL ONE (07:30)
[2018-10-29] MEDS ORDERED: MIDAZOLAM 2 MG/2 ML VIAL IVP ONE (07:45)
[2018-10-29] MEDS ORDERED: HYDROmorphONE/DILAUDID 2 MG/ML INJ IVP PRN (07:46)
[2018-10-29] MEDS ORDERED: fentaNYL 100 MCG/2 ML INJ IVP PRN (07:46)
[2018-10-29] MEDS ORDERED: PHENYLEPHRINE HCL 100 MCG/ML SYR IVP PRN (07:46)
[2018-10-29] MEDS ORDERED: oxyCODONE IR 5 MG TAB PO PRN (07:46)
[2018-10-29] MEDS ORDERED: METOCLOPRAMIDE 10 MG/2 ML VIAL IVP PRN (07:46)
[2018-10-29] MEDS ORDERED: PROMETHAZINE HCL 25 MG/ML INJ IVP PRN (07:46)
[2018-10-29] MEDS ORDERED: ONDANSETRON 4 MG/2 ML VIAL IVP PRN (07:46)
[2018-10-29] MEDS ORDERED: LR 500 ML IV PRN (07:46)
[2018-10-29] MEDS ORDERED: NALOXONE HCL 0.4 MG/ML INJ IVP PRN (07:46)
[2018-10-29] MEDS ORDERED: MIDAZOLAM 2 MG/2 ML VIAL ONE (07:54)
--- NOTE | 2018-10-29 07:58 | PDANEPAE ---
ANE Past Medical History - Cardiovascular History Hx Hypertension: No Hx Arrhythmias: No Hx Chest Pain: No Hx Coronary Artery / Peripheral Vascular Disease: No Hx CHF / Valvular Disease: No Hx Palpitations: No - Pulmonary History Hx COPD: No Hx Asthma/Reactive Airway Disease: No Hx Recent Upper Respiratory Infection: No Hx Oxygen in Use at Home: No Hx Sleep Apnea: No Sleep Apnea Screening Result - Last Documented: Negative - Neurologic History Hx Cerebrovascular Accident: No Hx Seizures: No Hx Dementia: No - Endocrine History Hx Diabetes: No - Renal History Hx Renal Disorders: No - Liver History Hx Hepatic Disorders: No - Neurological & Psychiatric Hx Hx Neurological and Psychiatric Disorders: No - Cancer History Hx Cancer: No - Congenital Disorder History Hx Congenital Disorders: No - GI History GERD: no Hx Gastrointestinal Disorders: No - Other Health History Other Health History: none - Chronic Pain History Chronic Pain: Yes (R knee) - Surgical History Prior Surgeries: L knee scope 04/25. appi ANE Review of Systems Review of Systems: ANE Patient History - Allergies Allergies/Adverse Reactions: morphine Allergy (Mild, Verified 10/20/18 14:25) LACK OF EFFECTIVENESS amoxicillin [Amoxicillin] Allergy (Verified 10/20/18 14:25) Rash - Home Medications Home Medications: Ferrous Sulfate [Ferrous Sulf 325 MG (*)] 325 mg PO DAILY 10/18/18 [Last Taken 10/21/18] - NPO status NPO Since - Liquids (Date): 10/29/18 NPO Since - Liquids (Time): 01:15 NPO Since - Solids (Date): 10/29/18 NPO Since - Solids (Time): 00:00 - Smoking Hx Smoking Status: Never smoked - Family Anes Hx Family Hx Anesthesia Complications: no ANE Labs/Vital Signs - Labs Result Diagrams: 10/29/18 04:55 10/29/18 04:55 - Vital Signs Blood Pressure: 151/90 Heart Rate: 80 Respiratory Rate: 16 O2 Sat (%): 93 Height: 165.1 cm Weight: 89.811 kg ANE Physical Exam - Airway Neck exam: FROM Mallampati Score: Class 1 Mouth exam: normal dental/mouth exam - Pulmonary Pulmonary: no respiratory distress, no rales or rhonchi - Cardiovascular Cardiovascular: regular rate and rhythym, no murmur, rub, or gallop - ASA Status ASA Status: II ANE Anesthesia Plan Anesthesia Plan: GA w LMA
--- NOTE | 2018-10-29 08:11 | SOAPPROG ---
PIPPA Progress Note Assessment/Plan: Assessment: Feeling better, but still reasonable to evaluate ureters given question of poor ureteral function at time of procedure - Plan: To OR for stent removal, bilateral retrograde pyelograms and possible stent replacement - 10/29/18 08:10 Objective: Vital Signs Temp Pulse Resp BP Pulse Ox 36.6 C 80 16 151/90 H 93 10/29/18 07:51 10/29/18 07:57 10/29/18 07:57 10/29/18 07:57 10/29/18 07:57 Laboratory Results 10/29/18 04:55 10/29/18 04:55 10/28/18 10/29/18 10/30/18 05:59 05:59 05:59 Intake Total 50 Output Total 950 Balance -900 PT 15.1 SEC (12.0-15.0) H 10/28/18 09:48 INR 1.17 (0.83-1.16) H 10/28/18 09:48 Physical Exam - Physical Exam EENT: PERRL/EOMI Neck: non-tender Respiratory: chest non-tender Cardiac/Chest: normal peripheral pulses Abdomen: normal bowel sounds Pelvic Exam: deferred Skin: normal color Lymphatic: no adenopathy Extremities: normal range of motion Neuro/Psych: no motor/sensory deficits ICD10 Worksheet Patient Problems: Problems Problem Status Onset Postoperative abdominal pain Acute S/P ureteral stent placement Acute Post-operative pain Acute S/P laparoscopic hysterectomy Acute
--- NOTE | 2018-10-29 08:19 | PDHPUP ---
History & Physical Update H&P update statement: This history and physical update is based on an assessment of the patient which was completed after admission or registration (within 24 hours), but prior to the surgery/procedure. Dictatd yesterday at #[id number] H&P update: H&P reviewed & patient examined, no change in patient's condition since H&P completed
--- NOTE | 2018-10-29 09:16 | GCON ---
DATE OF CONSULTATION: 10/28/2018 CHIEF COMPLAINT: Significant abdominal pain and history of hysterectomy with repair of ileostomy. Thomas cheema was called into the procedure to evaluate the ureter. A stent was placed, but at the time, du e to technical reasons, we could not perform a retrograde pyelogram. HISTORY OF PRESENT ILLNESS: This is a 53-year-old female who was just discharged from an admission w hich had been complicated. She underwent an elective laparoscopic hysterectomy, and the following da y, had a significant amount of abdominal pain, was evaluated by General Surgery and taken back that a fternoon for a small enterotomy that was identified and fixed. She had a prolonged hospital course w ith very slow advancement of bowel function. She came in yesterday with severe pelvic and flank pain . There is a question of whether this pain is from the stent and a possible pyelonephritis. I had a long discussion with her regarding management of this, including continuing antibiotics, leaving the stent in place, or going to the operating room and studying the ureter to see if it is safe to remov e the stent. She is in a strong opinion that she wants the stent removed, and I believe that this is the safest way to do that given the complicated history. We will plan on the operating room in the morning. PAST MEDICAL HISTORY: Allergic rhinitis, dysmenorrhea, and hemorrhoids. PAST SURGICAL HISTORY: Significant for appendectomy, arthroscopic knee surgery, knee replacement on the right, laparoscopic hysterectomy a week ago, lap exploration with enterotomy repair 1 week ago. Multiple antibiotics given over the course of the treatment. CURRENT MEDICATIONS: Levaquin and Flagyl from prior discharge. ALLERGIES: Amoxicillin and morphine. FAMILY HISTORY: Noncontributory. REVIEW OF SYSTEMS: Ten-point review of systems was performed and noted to be negative, except as not ed in the H and P. PHYSICAL EXAMINATION: VITAL SIGNS: Temperature is afebrile. Blood pressure is 130s over 70s. Hear t rate is 60s. 95% on room air. CONSTITUTIONAL: She is in moderate distress. Does appear uncomfor table. HEENT: Normocephalic, atraumatic. NECK: Trachea is midline. No lymphadenopathy. CARDIOVA SCULAR: No JVD. No retractions. No cyanosis. RESPIRATORY: No retractions. ABDOMEN: Her incisio ns are clean, healing appropriately. She is tender in the abdomen, but no rebound tenderness. SKIN: Warm. MUSCULOSKELETAL: Full strength. No tenderness. NEUROLOGIC: Alert and oriented x3. Crani al nerves 2-12 grossly intact. No weakness. No numbness. PSYCHIATRIC: Interacting appropriately. Not anxious or encephalopathic. LYMPHATIC: No cervical, groin or supraclavicular lymphadenopathy. LAB DATA: White blood cell count normal. No left shift. H and H are stable at 12 and 36. Urine is positive for nitrites, leuk esterase, and red and white cells. IMAGING: CT scan of the abdomen and pelvis was performed. I reviewed this myself. There is no evid ence of abscess. The ureters seem grossly intact, but this is not a CT urogram, so the imaging value is limited for evaluating the ureter. ASSESSMENT AND PLAN: A 53-year-old female with severe flank pain. Dr. Guillen consulted us to racheal gonzalez for the necessity regarding removal of stent. I had a long discussion with her regarding managemen t. She is interested in the operating room for evaluation of the ureter. I think this is reasonable , and we will plan on this. She is on ceftriaxone currently and should remain on this as her Levaqui n and Flagyl may not necessarily cover urine bugs, and we will follow, and I will perform the operati on tomorrow. I did call Dr. Guillen after my evaluation. She agrees with this plan. /[id number]/MODL
--- NOTE | 2018-10-29 09:22 | POSTANESTH ---
Post Anesthetic Evaluation Cardiovascular Status: Normal, Stable Respiratory Status: Normal, Stable Level of Consciousness/Mental Status: Can Participate in Eval Pain Control: Adequate, Prn Tx Ordered Nausea/Vomiting Control: Adequate, Prn Tx Ordered Complications Possibly Related to Anesthesia: None Noted
[2018-10-29] MEDS: SENNOSIDES/DOCUSATE SODIUM TAB PO SCH ×2 (09:44→23:40)
--- NOTE | 2018-10-29 10:47 | GOP ---
DATE OF OPERATION: 10/29/2018 SURGEON: Phi Mckeon MD PREOPERATIVE DIAGNOSIS: Stent pain, question of ureteral dysfunction after hysterectomy. POSTOPERATIVE DIAGNOSIS: No evidence of ureteral leak. No evidence of ureter injury. The stent was removed. PROCEDURE PERFORMED: Cystoscopy, stent removal, retrograde pyelogram on the left side . FINDINGS: INDICATIONS: Ms. Salmeron is a very pleasant 53-year-old female who had a hysterectomy for amenorrhe a and dysmenorrhea and had a complicated course. Urology was asked to place a stent at the time of t he procedure, which we did. The patient has had significant problems with the stent. She was anabela t to the operating room for evaluation of safety of removal of stent and assessment of ureter. DESCRIPTION OF PROCEDURE: Patient was identified by name, medical record number, and wrist band, mohit putnam to the operating room, laid supine on the table prepped and draped in standard surgical fashion. A 22-Zimbabwean cystoscope was inserted in the bladder. The entire bladder was visualized. Left great er ureter noted to be normal location. Stent was removed over a wire and then a retrograd e pyelogram was performed. No leak of urine was noted. The wire was then removed and another retrog rade pyelogram was performed. No leak was noted. The patient was then awakened from anesthesia, mohit putnam to the recovery room in stable condition. It should be noted that during the procedure, I had e xcellent ureter jets from both ureters over a 10-minute period of time and all the contrast drained o ut of the kidney. COMPLICATIONS: None. /[id number]/MODL
--- NOTE | 2018-10-29 11:29 | PCMIDPN ---
Assessment/Plan: #UTI: low count on UCx may be related to GNR being susceptible to FQ (which she had 1 dose prior to collection UCx). Lower abdominal exam much improved today. Urinary sx resolved. --continue high dose Zosyn and monitor cultures #Peritonitis s/p ileal perf, Day #7 of abx post op. Cx negative --sent remainder of sample from OR for testing for mycoplasma genitalium PCR although w marked improvement today doubt this cause of abdominal pain #H/o limited rash to amoxicillin: tolerating Zosyn so far, warned rash could still develop meds, Abx #7 post op Zosyn 4.5gm IV q6h #1 s/p 6 days ceftriaxone + flagyl micro 10/28 blood cx (2) NGTD 10/28 UCx : 1000K GNR, requested ID and sensi 10/23 peritoneal fluid:NGTD Subjective: urinary symptoms dramatically improved after 1st dose Zosyn, feeling so much better, wants to go home today if possible had multiple BMs ureteral stent removed this AM Objective: Vital Signs Temp Pulse Resp BP Pulse Ox 36.7 C 78 16 181/100 H 94 10/29/18 10:40 10/29/18 10:40 10/29/18 10:40 10/29/18 10:40 10/29/18 10:40 Laboratory Results 10/29/18 04:55 10/29/18 04:55 10/28/18 10/29/18 10/30/18 05:59 05:59 05:59 Intake Total 50 240 Output Total 950 Balance -900 240 - Physical Exam General Appearance: alert, no apparent distress EENT: pale conjunctiva, No scleral icterus Respiratory: lungs clear, No accessory muscle use Neck: supple Cardiac/Chest: regular rate, rhythm Abdomen: non-tender, soft, other (suprapubic and LLQ pain completely resolved; RUQ pain still present and mild) Pelvic Exam: No abrams Skin: pallor, No rash Neuro/Psych: alert, normal mood/affect, oriented x 3 - Time Spent With Patient Time Spent with Patient: greater than 35 minutes (care coordinated w surgery; results reviewed w patient & her a bedside) Time Spent with Patient: Greater than 35 minutes spent on this patients care, greater than 50% of time spent counseling, educating, and coordinating care regarding the above mentioned plan. ICD10 Worksheet Patient Problems: Problems Problem Status Onset Postoperative abdominal pain Acute S/P ureteral stent placement Acute Post-operative pain Acute S/P laparoscopic hysterectomy Acute
--- NOTE | 2018-10-29 11:35 | SOAPPROG ---
PIPPA Progress Note Assessment/Plan: Assessment: source likely and is being properly treated, stent removed this AM abdomen is much less tender and exam is reassuring. Clearly non-surgical [facility] not much else to add, gave her a reg diet. Will ambulate Plan: 10/29/18 11:34 Subjective: feels great Objective: Vital Signs Temp Pulse Resp BP Pulse Ox 36.7 C 78 16 181/100 H 94 10/29/18 10:40 10/29/18 10:40 10/29/18 10:40 10/29/18 10:40 10/29/18 10:40 Laboratory Results 10/29/18 04:55 10/29/18 04:55 10/28/18 10/29/18 10/30/18 05:59 05:59 05:59 Intake Total 50 240 Output Total 950 Balance -900 240 PT 15.1 SEC (12.0-15.0) H 10/28/18 09:48 INR 1.17 (0.83-1.16) H 10/28/18 09:48 ICD10 Worksheet Patient Problems: Problems Problem Status Onset Postoperative abdominal pain Acute S/P ureteral stent placement Acute Post-operative pain Acute S/P laparoscopic hysterectomy Acute
[2018-10-29] MEDS ORDERED: IBUPROFEN 600 MG TAB PO PRN (12:06)
--- NOTE | 2018-10-29 12:11 | SOAPPROG ---
SOAP Progress Note Assessment/Plan: Assessment: 53 y/o POD #8 s/p TLH BS and placement of L ureteral stent POD #7 s/p laparoscopic repair of proximal jejunal enterotomy Plan: She was febrile overnight but doing much better now with the IV Zosyn and removal of the ureteral stent. Her bowel function is improving and she it tolerating reg diet. I d/c IV pain meds and encouraged her to use Ibuprofen and Oxycodone PRN. Encourage ambulation and anticipate d/c home tomorrow with correct po antibiotic regimen. 10/28/18 19:02 10/29/18 12:11 Subjective: Pt is feeling much better this am. She is happy to have the stent removed and to know her ureters are intact and without abnormality. She has had + BM today and + flatus. She is tolerating reg diet and ambulating and voiding without difficulty. Her urinary symptoms have improved as well. She would like to go home today, but understands she needs IV Zosyn and to fully ID the correct PO regimen. Objective: Vital Signs Temp Pulse Resp BP Pulse Ox 36.8 C 79 16 175/95 H 90 L 10/29/18 11:40 10/29/18 11:40 10/29/18 11:40 10/29/18 11:40 10/29/18 11:40 Laboratory Results 10/29/18 04:55 10/29/18 04:55 10/28/18 10/29/18 10/30/18 05:59 05:59 05:59 Intake Total 50 240 Output Total 950 Balance -900 240 PT 15.1 SEC (12.0-15.0) H 10/28/18 09:48 INR 1.17 (0.83-1.16) H 10/28/18 09:48 - Pending Discharge Pending Discharge Within 24 Hours: Yes Pending Discharge Date: 10/30/18 Pending Discharge Time: 11:00 Physical Exam - Physical Exam General Appearance: WD/WN, alert, no apparent distress Neck: non-tender, full range of motion, supple Respiratory: chest non-tender, lungs clear, normal breath sounds Cardiac/Chest: regular rate, rhythm Abdomen: normal bowel sounds, other (incision c/d/i) Extremities: swelling (no), Lula's sign (neg) ICD10 Worksheet Patient Problems: Problems Problem Status Onset Postoperative abdominal pain Acute S/P ureteral stent placement Acute Post-operative pain Acute S/P laparoscopic hysterectomy Acute
--- NOTE | 2018-10-29 17:28 | ASMTCMCOM ---
CM Note CM Note Notes: Pt was recently discharged from the hospital, she presented yesterday for increased pelvic pain. Pt was taken to OR and had ureteral stents removed. Pt is ambulating indepedently, anticipate she will dc home w/support of LP when medically stable. CM available for any changes. DC Plan: Independent Date Signed: 10/29/2018 05:27 PM Electronically Signed By:Lisa Gomez RN
[2018-10-30] MEDS: PROMETHAZINE HCL 25 MG/ML INJ IVP PRN (01:57)
[2018-10-30] MEDS: PIPERACILLIN/TAZO 4.5 GM/DEX 100 ML IV SCH ×2 (05:32→10:25)
[2018-10-30] MEDS: METOCLOPRAMIDE 10 MG/2 ML VIAL IVP SCH ×2 (06:08)
[2018-10-30 06:21] LABS: PLATELET COUNT 267 10^3/uL (150-400)
[2018-10-30 08:55] VITALS: BP 176/86
--- NOTE | 2018-10-30 09:14 | SOAPPROG ---
SOAP Progress Note Assessment/Plan: Assessment: tolerating diet, having bowel function abdomen is soft and reassuring urine cx still showing GNRs, S&S pending. defer to ID Re dispo, ideally home on PO abx today Plan: 10/29/18 11:34 10/30/18 09:11 10/30/18 09:15 Subjective: wants to go home Objective: Vital Signs Temp Pulse Resp BP Pulse Ox 36.6 C 66 16 176/86 H 93 10/30/18 08:00 10/30/18 08:00 10/30/18 08:00 10/30/18 08:00 10/30/18 08:00 Laboratory Results 10/30/18 05:15 10/30/18 05:15 10/29/18 10/30/18 10/31/18 05:59 05:59 05:59 Intake Total 50 640 Output Total 950 550 Balance -900 90 PT 15.1 SEC (12.0-15.0) H 10/28/18 09:48 INR 1.17 (0.83-1.16) H 10/28/18 09:48 ICD10 Worksheet Patient Problems: Problems Problem Status Onset Postoperative abdominal pain Acute S/P ureteral stent placement Acute Post-operative pain Acute S/P laparoscopic hysterectomy Acute
[2018-10-30] MEDS: SENNOSIDES/DOCUSATE SODIUM TAB PO SCH (09:40)
--- NOTE | 2018-10-30 10:08 | PCMIDPN ---
Assessment/Plan: #UTI: low count on UCx may be related to GNR being susceptible to FQ (which she had 1 dose prior to collection UCx). Lower abdominal exam much improved today. Urinary sx resolved. --dc after 11am dose zosyn --resume levofloxacin 10/29 for 3 more days. I will call w cx results #Peritonitis s/p ileal perf, Day #7 of abx post op. Cx negative. Has already rec'd appropriate abx for this --dc flagyl at home #H/o limited rash to amoxicillin: tolerating Zosyn so far meds, Abx #8 post op Zosyn 4.5gm IV q6h #2 s/p 6 days ceftriaxone + flagyl micro 10/28 blood cx (2) NGTD 10/28 UCx : 1000K GNR, ID and sensi still pending 10/23 peritoneal fluid:NGTD Objective: Vital Signs Temp Pulse Resp BP Pulse Ox 36.6 C 66 16 176/86 H 93 10/30/18 08:00 10/30/18 08:00 10/30/18 08:00 10/30/18 08:00 10/30/18 08:00 Laboratory Results 10/30/18 05:15 10/30/18 05:15 10/29/18 10/30/18 10/31/18 05:59 05:59 05:59 Intake Total 50 640 Output Total 950 550 Balance -900 90 - Physical Exam General Appearance: alert, no apparent distress Respiratory: No respiratory distress, No accessory muscle use Extremities: No pedal edema Abdomen: soft, distended (mild), other (scattered bruising associated w surgical sites. Much less LLQ pain to palpation. Mild RUQ pain remains to deep palpation), No rebound, No peritoneal signs Skin: No rash Neuro/Psych: alert, normal mood/affect, oriented x 3 - Time Spent With Patient Time Spent with Patient: greater than 35 minutes (reviewed reasons for improvement on Zosyn) Time Spent with Patient: Greater than 35 minutes spent on this patients care, greater than 50% of time spent counseling, educating, and coordinating care regarding the above mentioned plan. ICD10 Worksheet Patient Problems: Problems Problem Status Onset Post-operative pain Acute Postoperative abdominal pain Acute S/P laparoscopic hysterectomy Acute S/P ureteral stent placement Acute
--- NOTE | 2018-10-30 11:17 | ASDISCHSUM ---
Discharge Information Plan Status:Home with No Needs Medically Cleared to Leave:10/29/2018 Discharge Date:10/29/2018 CM D/C Disposition:Home, Routine, Self-Care ADT D/C Disposition: Projected Discharge Date:10/30/2018 12:00 AM Transportation at D/C:Family Discharge Delay Reason: Follow-Up Date:10/30/2018 12:00 AM Discharge Slot:1 - 8:01 am - 12:00 noon Final Diagnosis:UTI, Peritonitis Placement Information Patient Contact Information Contact Name:JUDY Relationship:Life Partner Address:[address] Work Phone: Amy:GLENNAdianboom Minda Phone: [facility]/Zip Code:[place] [address] Email: Financial Information Financial Class:[facility] Primary Plan Desc:[facility] Primary Plan Number:[id number] Secondary Plan Desc: Secondary Plan Number: Assessment Information [facility] CM Progress Note CM Note CM Note Notes: Pt was recently discharged from the hospital, she presented yesterday for increased pelvic pain. Pt was taken to OR and had ureteral stents removed. Pt is ambulating indepedently, anticipate she will dc home w/support of LP when medically stable. CM available for any changes. DC Plan: Independent Date Signed: 10/29/2018 05:27 PM Electronically Signed By:Lisa Gomez RN Intervention Information
--- NOTE | 2018-10-30 11:19 | ASMTDCNOTE ---
Case Management Discharge Discharge Order Complete? Answers: Yes Patient to Obtain Answers: via Family Medications Transportation Arranged Answers: Family/Friends Family Notified Answers: Yes Discharge Comments Notes: CM spoke with RN Carlota, patient to discharge independent with family support and will follow up as recommended. CM available to support if any Case Management/Discharge needs arise. Date Signed: 10/30/2018 11:19 AM Electronically Signed By:Iris Escalona
== END 2018-10-30 11:05 | disposition home or self-care (01) ==
LOC: F3E 17:12
PROVIDERS: ADMIT Surgery; ATTEND Surgery
PROC: BT17YZZ Fluoroscopy of Left Ureter using Other Contrast (ICD-10-PCS; 2018-10-28)
PROC: 0TP980Z Removal of Drainage Device from Ureter, Via Natural or Artificial Opening Endoscopic (ICD-10-PCS; principal; 2018-10-29 08:00)
DX: N39.0 Urinary tract infection, site not specified (principal); G89.18 Other acute postprocedural pain; B96.20 Unspecified Escherichia coli [E. coli] as the cause of diseases classified elsewhere; K65.9 Peritonitis, unspecified; R94.5 Abnormal results of liver function studies; E86.9 Volume depletion, unspecified; D64.9 Anemia, unspecified; Z96.651 Presence of right artificial knee joint; Z90.710 Acquired absence of both cervix and uterus; Z88.0 Allergy status to penicillin
CPT/HCPCS: 52310; 74177; 76001; 76700; 96361; 96365; 96375; 96376; 99285; C1758; C1769; G0378; 82435-PO; 82565-PO; 82947-PO; 84132-PO; 84295-PO; 84520-PO; 85014-PO; J0696; J1100; J1170; J1885; J2250; J2405; J2543; J2550; J2704; J2765; J3010; Q9967

== ENCOUNTER 2018-11-29 11:24 | Inpatient (IN) | payer OTHER ==
[2018-11-29] MEDS ORDERED: NS 1,000 ML IV ONE (11:39)
--- NOTE | 2018-11-29 11:58 | EDPHY ---
HPI/HX/ROS/PE/MDM Narrative: CHIEF COMPLAINT: Abdominal Pain HISTORY OF PRESENT ILLNESS: The patient is a 53 y/o female with multiple postoperative complications following a hysterectomy done in early October. Patient's postoperative course has been complicated by need for a left ureteral stent, bowel perforation , peritonitis, complicated urinary tract infection, and ongoing abdominal pain. Patient recently has been seen by Dr. Peralta from Gastroenterology for ongoing abdominal discomfort as well as diarrhea. She has had multiple courses of antibiotics throughout her postoperative course. Patient presented today to Dr. Antonia Mixon with complaints of ongoing abdominal discomfort. On examination she had significant abdominal tenderness. Discussion was held between Dr. Fernandes and the patient concerning exploratory laparoscopic put given the patient's history and degree of discomfort. Patient would prefer to be evaluated in the emergency department for consideration of a CT scan. On arrival to the emergency department, I was contacted by Dr. Peralta from Gastroenterology who notified me that the patient's stool studies from yesterday are positive for Clostridium difficile. Patient denies any fevers. She denies chest pain, shortness of breath, palpitations, vomiting. She has had ongoing diarrhea. Denies any urinary complaints currently. No headache or lightheadedness. REVIEW OF SYSTEMS: Aside from elements discussed in the HPI, a comprehensive 10-point review of systems was reviewed and is negative. PAST MEDICAL HISTORY: Hysterectomy, UTI, anemia, right knee replacement, appendectomy, bilateral meniscus replacements SOCIAL HISTORY: Employed at [employer], lives in [place] VITAL SIGNS: Reviewed by me. Tachycardic to 117. Hypertensive. Appears very uncomfortable GENERAL: Well-developed, well-nourished, appears very uncomfortable, reporting generalized abdominal pain, worse in the right upper quadrant and right mid quadrant. HEENT: Atraumatic. Eyes: Tearful, no icterus, no injection. Mouth: moist mucous membranes. No erythema or lesions. Neck: supple with no adenopathy. LUNGS: Clear to auscultation bilaterally, no wheezes, rhonchi or rales. CARDIAC: Regular rate and rhythm, no rubs, murmurs or gallops. ABDOMEN: Soft, diffuse tenderness to palpation, voluntary guarding, tenderness is most significant in the right upper quadrant, right mid quadrant. Patient also has some left-sided mid abdominal tenderness. No rebound. Diminished bowel sounds. Surgical scars are well healed. BACK: Mild left CVA tenderness. EXTREMITIES: No trauma. No edema. Range of motion is normal throughout. NEURO: Alert and oriented, grossly nonfocal. SKIN: Warm and dry, no rash. PSYCHIATRIC: Normal mentation, no agitation. ED Course: A 53-year-old female presents emergency department with reports of worsening ongoing abdominal pain with a complicated postoperative history. Of note, the patient has a newly diagnosed Clostridium difficile infection. She has been having diarrhea but no vomiting. She is very uncomfortable on the arrival. Patient had IV placed received normal saline, fentanyl for pain, Zofran for nausea, underwent CT scan of abdomen pelvis which does not demonstrate signs of toxic megacolon or significant C difficile colitis. No signs of perforation. Urinalysis is clean. Patient's pain continued and was treated with Dilaudid as well as a small dose of Ativan. Course was discussed with Dr. Mixon. Per the patient's request patient was admitted to Dr. Mixon's service with medicine consultation. MDM: After obtaining the patient's history and performing an examination, differential diagnosis considered included but was not limited to bowel obstruction, cholecystitis, pancreatitis, urinary tract infection, toxic megacolon, colitis, diverticulitis, intra-abdominal abscess. - Data Points Imaging Results: Imaging Impressions Abdomen CT 11/29/18 12:30 Impression: 1. Minimal inflammatory stranding surrounding the distal sigmoid colon and rectum with mild bowel wall thickening suggestive of colitis of inflammatory/ infectious nature. 2. 3.2 cm left adnexal cystic lesion, in a postmenopausal woman patient these are most certainly benign lesions, however further evaluation with ultrasound is recommended. Mikala Omer was notified of these findings at 1:39 PM on 11/29/2018 Imaging: Discussed imaging studies w/ electronic equipment maint tech Radiologist Laboratory Results: Laboratory Results 11/29/18 11:55 11/29/18 11:55 11/29/18 11/29/18 11/29/18 13:42 11:55 11:55 WBC 4.61 10^3/uL 10^3/uL (3.80-9.50) RBC 5.50 10^6/uL H 10^6/uL (4.18-5.33) Hgb 14.0 g/dL g/dL (12.6-16.3) Hct 43.6 % % (38.0-47.0) MCV 79.3 fL L fL (81.5-99.8) MCH 25.5 pg L pg (27.9-34.1) MCHC 32.1 g/dL L g/dL (32.4-36.7) RDW 13.7 % % (11.5-15.2) Plt Count 211 10^3/uL 10^3/uL (150-400) MPV 10.1 fL fL (8.7-11.7) Neut % (Auto) 55.3 % % (39.3-74.2) Lymph % (Auto) 30.6 % % (15.0-45.0) [place] % (Auto) 9.5 % % (4.5-13.0) Eos % (Auto) 3.3 % % (0.6-7.6) Baso % (Auto) 0.9 % % (0.3-1.7) Nucleat RBC Rel Count 0.0 % % (0.0-0.2) Absolute Neuts (auto) 2.55 10^3/uL 10^3/uL (1.70-6.50) Absolute Lymphs (auto) 1.41 10^3/uL 10^3/uL (1.00-3.00) Absolute Monos (auto) 0.44 10^3/uL 10^3/uL (0.30-0.80) Absolute Eos (auto) 0.15 10^3/uL 10^3/uL (0.03-0.40) Absolute Basos (auto) 0.04 10^3/uL 10^3/uL (0.02-0.10) Absolute Nucleated RBC 0.00 10^3/uL 10^3/uL (0-0.01) Immature Gran % 0.4 % % (0.0-1.1) Immature Gran # 0.02 10^3/uL 10^3/uL (0.00-0.10) Sodium 139 mEq/L mEq/L (135-145) Potassium 3.9 mEq/L mEq/L (3.5-5.2) Chloride 107 mEq/L mEq/L (97-110) Carbon Dioxide 24 mEq/l mEq/l (22-31) Anion Gap 8 mEq/L mEq/L (6-14) BUN 11 mg/dL mg/dL (7-23) Creatinine 1.0 mg/dL mg/dL (0.6-1.0) Estimated GFR 58 Glucose 106 mg/dL H mg/dL (70-100) Calcium 9.8 mg/dL mg/dL (8.5-10.4) Total Bilirubin 0.7 mg/dL mg/dL (0.1-1.4) Conjugated Bilirubin 0.2 mg/dL mg/dL (0.0-0.5) Unconjugated Bilirubin 0.5 mg/dL mg/dL (0.0-1.1) AST 31 IU/L IU/L (14-46) ALT 28 IU/L IU/L (9-52) Alkaline Phosphatase 87 IU/L IU/L (38-126) Total Protein 7.8 g/dL g/dL (6.3-8.2) Albumin 4.4 g/dL g/dL (3.5-5.0) Lipase 170 IU/L IU/L (23-300) Urine Color YELLOW Urine Appearance CLEAR Urine pH 8.0 H (5.0-7.5) Ur Specific [place] > 1.035 H (1.002-1.030) Urine Protein NEGATIVE (NEGATIVE) Urine Ketones NEGATIVE (NEGATIVE) Urine Blood NEGATIVE (NEGATIVE) Urine Nitrate NEGATIVE (NEGATIVE) Urine Bilirubin NEGATIVE (NEGATIVE) Urine Urobilinogen NEGATIVE EU EU (0.2-1.0) Ur Leukocyte Esterase NEGATIVE (NEGATIVE) Urine RBC 1-3 /hpf /hpf (0-3) Urine WBC 0-1 /hpf /hpf (0-3) Ur Epithelial Cells TRACE /lpf /lpf (NONE-1+) Urine Mucus TRACE /lpf /lpf (NONE-1+) Urine Glucose NEGATIVE (NEGATIVE) Medications Given: Discontinued Medications Fentanyl (Sublimaze) 50 mcg IVP EDNOW ONE Stop: 11/29/18 12:42 Last Admin: 11/29/18 13:00 Dose: 100 mcg Hydromorphone HCl (Dilaudid) 1 mg IVP EDNOW ONE Stop: 11/29/18 13:58 Last Admin: 11/29/18 14:10 Dose: Not Given Sodium Chloride (Ns) 1,000 mls @ 0 mls/hr IV EDNOW ONE; Wide Open PRN Reason: Protocol Stop: 11/29/18 11:40 Last Admin: 11/29/18 12:04 Dose: 1,000 mls Lorazepam (Ativan Injection) 0.5 mg IVP EDNOW ONE Stop: 11/29/18 13:58 Last Admin: 11/29/18 14:10 Dose: Not Given Vancomycin HCl (Vancocin Oral Liquid) 250 mg PO QID CARL PRN Reason: Protocol Stop: 12/29/18 11:59 Last Admin: 11/29/18 12:33 Dose: 250 mg General Time Seen by Provider: 11/29/18 11:39 Initial Vital Signs: Initial Vital Signs Temperature (C) 36.7 C 11/29/18 11:29 Heart Rate 117 H 11/29/18 11:29 Respiratory Rate 18 11/29/18 11:29 Blood Pressure 167/117 H 11/29/18 11:29 O2 Sat (%) 99 11/29/18 11:29 O2 Delivery Mode Room Air Allergies/Adverse Reactions: morphine Allergy (Mild, Verified 10/20/18 14:25) LACK OF EFFECTIVENESS amoxicillin [Amoxicillin] Allergy (Verified 10/20/18 14:25) Rash Home Medications: Medication Instructions Recorded Pantoprazole Sodium [Protonix 40mg 40 mg PO DAILY 11/29/18 (*)] Pnv No.121/Iron/Folic Acid 1 each PO DAILY 11/29/18 [ Multivitamin Tablet] Promethazine HCl [Phenergan 12.5mg 12.5 mg PO HS PRN 11/29/18 tab] Departure - Departure Disposition: [facility] Acute Clinical Impression: Clostridium difficile colitis Abdominal pain Qualifiers: Abdominal location: generalized Qualified Code(s): R10.84 - Generalized abdominal pain Diarrhea Qualifiers: Diarrhea type: presumed infectious Qualified Code(s): R19.7 - Diarrhea, unspecified Condition: Fair Report Scribed for: Mikala Omer Report Scribed by: Shruti Catalan Date of Report: 11/29/18 Time of Report: 11:58
[2018-11-29] MEDS ORDERED: VANCOMYCIN 125 MG/2.5 ML UDL PO SCH (12:00)
[2018-11-29 12:15] LABS: PLATELET COUNT 211 10^3/uL (150-400)
[2018-11-29] MEDS ORDERED: IOPAMIDOL (ISOVUE 370) 100 ML BTL IV ONE (12:33)
[2018-11-29] MEDS ORDERED: fentaNYL 100 MCG/2 ML INJ IVP ONE (12:41)
[2018-11-29] MEDS ORDERED: fentaNYL 100 MCG/2 ML INJ ONE (12:42)
[2018-11-29] MEDS: LORazepam 2 MG/ML INJ IVP ONE ×2 (14:05→14:10)
[2018-11-29] MEDS: HYDROmorphONE/DILAUDID 2 MG/ML INJ IVP ONE ×2 (14:05→14:10)
[2018-11-29] MEDS ORDERED: PROMETHAZINE HCL 25 MG/ML INJ IVP PRN (14:11)
[2018-11-29] MEDS ORDERED: ONDANSETRON DISINTEGRATING 4 MG TAB PO PRN (14:11)
[2018-11-29] MEDS ORDERED: IBUPROFEN 600 MG TAB PO PRN (14:11)
[2018-11-29] MEDS ORDERED: D5W 1/2 NS W/ 20 KCl/L 1,000 ML IV SCH (14:15)
--- NOTE | 2018-11-29 15:58 | PDHOSCONS ---
History and Physical - Chief Complaint consult for management of chronic medical issues - History of Present Illness 53yo F presents to the ED from Dr Mixon's clinic for persistent abdominal pain. Internal medicine has been consulted for management of her chronic medical issues. Her history dates back to 10/21 when she underwent a hysterectomy and bilateral salpingectomy for fibroids/uterine bleeding. A left ureteral stent was also placed at that time due to concerns for ureteral injury. The following day (10/22), she developed severe abdominal pain and was taken back to the OR with Dr Sawyer and was found to have a proximal ileal perforation that was repaired. Peritoneal fluid that was collected was negative but she completed a course of antibiotics for peritonitis. She continued to have severe abdominal pain requiring an epidural. Her urinary catheter was removed and then ANAI drain removed shortly thereafter. She was discharged on 10/27 but then returned on due to worsening pain and was diagnosed with a UTI. Urology removed her left ureteral stent during this hospital stay. ID was consulted and she was initially placed on zosyn and discharged on levofloxacin; however, cultures grew ESBL E coli so she was then given a script for bactrim as an outpatient. She has continued to have rather persistent upper and right sided abdominal pain. She has concomitant right shoulder pain. No change in pain with eating; she is uncomfortable when lying on her sides. She developed diarrhea yesterday and had 15 non-bloody bowel movements. No fevers, chills, nausea/vomiting. She was referred to GI (Dr Peralta) who ordered C diff testing which just returned + today. She currently denies any urinary symptoms. History Information - Allergies/Home Medication List Allergies/Adverse Reactions: morphine Allergy (Mild, Verified 10/20/18 14:25) LACK OF EFFECTIVENESS amoxicillin [Amoxicillin] Allergy (Verified 10/20/18 14:25) Rash Home Medications: Pantoprazole Sodium [Protonix 40mg (*)] 40 mg PO DAILY 11/29/18 [Last Taken ] Pnv No.121/Iron/Folic Acid [ Multivitamin Tablet] 1 each PO DAILY [Last Taken Unknown] Promethazine HCl [Phenergan 12.5mg tab] 12.5 mg PO HS PRN 11/29/18 [Last Taken Unknown] I have personally reviewed and updated: family history, medical history, social history, surgical history - Past Medical History Additional medical history: adrenal adenoma, allergic rhinitis, hemorrhoids, uterine fibroids with dysmenorrhea, peritonitis 2/2 intra-operative ileal perforation, ESBL E coli UTI - Surgical History Additional surgical history: appendectomy, arthroscopic surgery (knees), R TKA , total laparoscopic hysterectomy with bilateral salpingectomy (10/2018), left ureteral stent placement, ileal perforation repair - Family History Additional family history: + for breast cancer, colon cancer, HTN, dementia, CAD - Social History Smoking Status: Never smoked Alcohol Use: None Drug Use: None Additional social history: 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, 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 Review of Systems Review of Systems: ROS: 10pt was reviewed & negative except for what was stated in HPI & below Physical Exam Physical Exam: Temp Pulse Resp BP Pulse Ox 36.9 C 77 18 158/88 H 99 11/29/18 12:34 11/29/18 14:07 11/29/18 14:07 11/29/18 14:07 11/29/18 14:30 O2 (L/minute) 2 Constitutional: appears nourished, uncomfortable Eyes: PERRL, anicteric sclera, EOMI Ears, Nose, Mouth, Throat: moist mucous membranes, hearing normal, ears appear normal, no oral mucosal ulcers Cardiovascular: regular rate and rhythym, no murmur, rub, or gallop, No edema Respiratory: no respiratory distress, no rales or rhonchi, clear to auscultation Gastrointestinal: tenderness (epigastric area, RUQ, RLQ), No lopez's sign, No hepatosplenomegally, No guarding, No distension Genitourinary: no bladder fullness, no bladder tenderness Skin: warm, normal color, no rashes or abrasions, no fluctuance, no induration, No mottled Musculoskeletal: full muscle strength, no muscle tenderness, normal joint ROM, no joint effusions Neurologic: AAOx3 Psychiatric: interacting appropriately, not anxious, not encephalopathic, thought process linear Lab Data & Imaging Review 11/29/18 11:55 11/29/18 11:55 WBC 4.61 10^3/uL (3.80-9.50) 11/29/18 11:55 RBC 5.50 10^6/uL (4.18-5.33) H 11/29/18 11:55 Hgb 14.0 g/dL (12.6-16.3) 11/29/18 11:55 Hct 43.6 % (38.0-47.0) 11/29/18 11:55 MCV 79.3 fL (81.5-99.8) L 11/29/18 11:55 MCH 25.5 pg (27.9-34.1) L 11/29/18 11:55 MCHC 32.1 g/dL (32.4-36.7) L 11/29/18 11:55 RDW 13.7 % (11.5-15.2) 11/29/18 11:55 Plt Count 211 10^3/uL (150-400) 11/29/18 11:55 MPV 10.1 fL (8.7-11.7) 11/29/18 11:55 Neut % (Auto) 55.3 % (39.3-74.2) 11/29/18 11:55 Lymph % (Auto) 30.6 % (15.0-45.0) 11/29/18 11:55 [place] % (Auto) 9.5 % (4.5-13.0) 11/29/18 11:55 Eos % (Auto) 3.3 % (0.6-7.6) 11/29/18 11:55 Baso % (Auto) 0.9 % (0.3-1.7) 11/29/18 11:55 Nucleat RBC Rel Count 0.0 % (0.0-0.2) 11/29/18 11:55 Absolute Neuts (auto) 2.55 10^3/uL (1.70-6.50) 11/29/18 11:55 Absolute Lymphs (auto) 1.41 10^3/uL (1.00-3.00) 11/29/18 11:55 Absolute Monos (auto) 0.44 10^3/uL (0.30-0.80) 11/29/18 11:55 Absolute Eos (auto) 0.15 10^3/uL (0.03-0.40) 11/29/18 11:55 Absolute Basos (auto) 0.04 10^3/uL (0.02-0.10) 11/29/18 11:55 Absolute Nucleated RBC 0.00 10^3/uL (0-0.01) 11/29/18 11:55 Immature Gran % 0.4 % (0.0-1.1) 11/29/18 11:55 Immature Gran # 0.02 10^3/uL (0.00-0.10) 11/29/18 11:55 Sodium 139 mEq/L (135-145) 11/29/18 11:55 Potassium 3.9 mEq/L (3.5-5.2) 11/29/18 11:55 Chloride 107 mEq/L (97-110) 11/29/18 11:55 Carbon Dioxide 24 mEq/l (22-31) 11/29/18 11:55 Anion Gap 8 mEq/L (6-14) 11/29/18 11:55 BUN 11 mg/dL (7-23) 11/29/18 11:55 Creatinine 1.0 mg/dL (0.6-1.0) 11/29/18 11:55 Estimated GFR 58 11/29/18 11:55 Glucose 106 mg/dL (70-100) H 11/29/18 11:55 Calcium 9.8 mg/dL (8.5-10.4) 11/29/18 11:55 Total Bilirubin 0.7 mg/dL (0.1-1.4) 11/29/18 11:55 Conjugated Bilirubin 0.2 mg/dL (0.0-0.5) 11/29/18 11:55 Unconjugated Bilirubin 0.5 mg/dL (0.0-1.1) 11/29/18 11:55 AST 31 IU/L (14-46) 11/29/18 11:55 ALT 28 IU/L (9-52) 11/29/18 11:55 Alkaline Phosphatase 87 IU/L (38-126) 11/29/18 11:55 Total Protein 7.8 g/dL (6.3-8.2) 11/29/18 11:55 Albumin 4.4 g/dL (3.5-5.0) 11/29/18 11:55 Lipase 170 IU/L (23-300) 11/29/18 11:55 Urine Color YELLOW 11/29/18 13:42 Urine Appearance CLEAR 11/29/18 13:42 Urine pH 8.0 (5.0-7.5) H 11/29/18 13:42 Ur Specific [place] > 1.035 (1.002-1.030) H 11/29/18 13:42 Urine Protein NEGATIVE (NEGATIVE) 11/29/18 13:42 Urine Ketones NEGATIVE (NEGATIVE) 11/29/18 13:42 Urine Blood NEGATIVE (NEGATIVE) 11/29/18 13:42 Urine Nitrate NEGATIVE (NEGATIVE) 11/29/18 13:42 Urine Bilirubin NEGATIVE (NEGATIVE) 11/29/18 13:42 Urine Urobilinogen NEGATIVE EU (0.2-1.0) 11/29/18 13:42 Ur Leukocyte Esterase NEGATIVE (NEGATIVE) 11/29/18 13:42 Urine RBC 1-3 /hpf (0-3) 11/29/18 13:42 Urine WBC 0-1 /hpf (0-3) 11/29/18 13:42 Ur Epithelial Cells TRACE /lpf (NONE-1+) 11/29/18 13:42 Urine Mucus TRACE /lpf (NONE-1+) 11/29/18 13:42 Urine Glucose NEGATIVE (NEGATIVE) 11/29/18 13:42 Interpretation: CT abd/pelvis: sigmoid and rectal bowel wall thickening and stranding, left adnexal cystic lesion measuring 3.2cm Assessment & Plan Assessment: 53yo F presents to the ED from Dr Mixon's clinic for persistent abdominal pain after hysterectomy 10/21/2018 complicated by peritonitis 2/2 ileal perforation and ESBL UTI. Internal medicine has been consulted for management of her chronic medical issues. Plan: 1. C diff colitis: First occurrence. Risk factors with recent hospitalization, antibiotics. - PO vancomycin 125mg QID x10 days 2. Persistent abdominal pain: Other than diarrhea/C diff, no signs of infection. Interestingly, her symptoms are localized to right side. LFTs completely normal and gallbladder/visualized biliary system normal on CT. No urinary sxs and UA clean. Query gallbladder pathology vs low-grade peritonitis - Recommend HIDA scan - Could consider MRCP, but with normal LFTs likely low yield - Defer pain management to primary team 3. Elevated BP: Noted in ED. Not chronic issue, likely related to pain. Monitor. Hold on starting anti-hypertensives. 4. Left adnexal cystic mass: Likely benign fluid collection related to recent surgery. Doubt contributing to abdominal symptoms. 5. Right adrenal adenoma: Known. Follow as outpatient. Thank you for this consult, we will continue to follow along.
[2018-11-29] MEDS: VANCOMYCIN 125 MG/2.5 ML UDL PO SCH ×2 (16:24→20:23)
[2018-11-29] MEDS: PROMETHAZINE HCL 25 MG TAB PO PRN (20:32)
[2018-11-30] MEDS: VANCOMYCIN 125 MG/2.5 ML UDL PO SCH ×4 (05:46→21:04)
--- NOTE | 2018-11-30 09:08 | SOAPPROG ---
SOAP Progress Note Assessment/Plan: Assessment/Plan: 53yo F s/p hysterectomy and repair of bowel perforation in Oct 2018. Now admitted with persistent abdominal pain and C. diff PO vancomycin Persistent RUQ pain - HIDA today Diet as tolerated If symptoms do not improve, patient may require diagnostic laparoscopy S: Right shoulder pain and right upper quadrant pain. Not taking much in p.o. No bowel movement since admission O: General: More comfortable than admission, no acute distress HENT: Normocephalic, no gross hearing deficits, mucous membranes moist, pupils equal and round Lungs: Clear to auscultation bilaterally, No increased work of breathing Cardiac: Regular rate, no peripheral edema Abdomen: Bowel sounds present, soft, much less tender than admission. Skin: Warm and dry. Surgical incisions well healed Psych: Mood and affect normal Neuro: Grossly intact Objective: Vital Signs Temp Pulse Resp BP Pulse Ox 36.9 C 68 16 141/77 H 92 11/30/18 05:36 11/30/18 05:36 11/30/18 05:36 11/30/18 05:36 11/30/18 05:36 11/29/18 11/30/18 12/01/18 05:59 05:59 05:59 Intake Total 400 Balance 400 ICD10 Worksheet Patient Problems: Problems Problem Status Onset Abdominal pain Acute Clostridium difficile colitis Acute Diarrhea Acute Post-operative pain Acute Postoperative abdominal pain Acute S/P laparoscopic hysterectomy Acute S/P ureteral stent placement Acute
--- NOTE | 2018-11-30 10:52 | ASMTCMCOM ---
CM Note CM Note Notes: Pt is a 53 yo F presents with abdominal pain and C-diff. Pt had a hysterectomy on 10/21. Pt lives with partner Rochelle. No therapies ordered. CM anticipates pt will be discharged independently. CM available if needs arise. Plan: Independent. Date Signed: 11/30/2018 10:51 AM Electronically Signed By:TANYA Ro
[2018-11-30] MEDS ORDERED: SINCALIDE 5 MCG VIAL IV ONE (11:41)
[2018-11-30] MEDS: FAMOTIDINE 20 MG/NACL 50 ML IV SCH (13:30)
[2018-11-30] MEDS ORDERED: hydrALAZINE 25 MG TAB PO PRN (13:43)
--- NOTE | 2018-11-30 13:43 | HOSPPROG ---
Hospitalist Progress Note Assessment/Plan: 53 yo F admitted from Dr Mixon's clinic for persistent abdominal pain after hysterectomy 10/21/2018 complicated by peritonitis 2/2 ileal perforation and ESBL UTI. Plan: C diff colitis: First occurrence. Risk factors with recent hospitalization, antibiotics. - cont po vanc RUQ abdominal pain: LFT's nl, but hida abnormal with GB ef 18% - surgery following - pain control Elevated BP: Not a chronic issue, possibly related to pain. - prn hydral for sbp >160 Left adnexal cystic mass: Likely benign fluid collection related to recent surgery. Doubt contributing to abdominal symptoms. -consider outpt u/s Right adrenal adenoma: outpt f/u Full code Dispo - cont inpt Subjective: Pt continues to have very focal RUQ pain, not painful in LLQ where CT shows colitis. No fevers/chills. Diarrhea has stopped. Taking some po. She is frustrated with prolonged course of complications since her hysterectomy 10/21. Objective: Vital Signs Temp Pulse Resp BP Pulse Ox 36.8 C 78 16 163/93 H 94 11/30/18 08:00 11/30/18 08:00 11/30/18 08:00 11/30/18 08:00 11/30/18 08:00 11/29/18 11/30/18 12/01/18 05:59 05:59 05:59 Intake Total 400 Balance 400 - Physical Exam Constitutional: no apparent distress Eyes: PERRL Ears, Nose, Mouth, Throat: moist mucous membranes Cardiovascular: regular rate and rhythym Respiratory: no respiratory distress, clear to auscultation Gastrointestinal: other (soft, nd, +marked TTP RUQ, no r/r/g or peritoneal signs , +BS) Skin: warm Musculoskeletal: full muscle strength Neurologic: AAOx3 Psychiatric: interacting appropriately ICD10 Worksheet Patient Problems: Problems Problem Status Onset Abdominal pain Acute Clostridium difficile colitis Acute Diarrhea Acute Post-operative pain Acute Postoperative abdominal pain Acute S/P laparoscopic hysterectomy Acute S/P ureteral stent placement Acute
[2018-11-30] MEDS: LORazepam 0.5 MG TAB PO PRN ×2 (16:01→23:35)
[2018-11-30] MEDS: HYDROmorphONE/DILAUDID 1 MG/ML INJ IVP PRN (23:35)
[2018-11-30] MEDS: PROMETHAZINE HCL 25 MG TAB PO PRN (23:35)
[2018-12-01] MEDS: LORazepam 0.5 MG TAB PO PRN ×2 (00:40→22:09)
[2018-12-01] MEDS: VANCOMYCIN 125 MG/2.5 ML UDL PO SCH ×4 (06:08→21:57)
[2018-12-01] MEDS ORDERED: ceFAZolin 2 GM/DEXTROSE 100 ML IV ONE (10:00)
[2018-12-01] MEDS: FAMOTIDINE 20 MG/NACL 50 ML IV SCH (10:09)
[2018-12-01] MEDS ORDERED: MIDAZOLAM 2 MG/2 ML VIAL IVP ONE ×2 (12:00→12:45)
[2018-12-01] MEDS ORDERED: ONDANSETRON 4 MG/2 ML VIAL ONE ×3 (12:03→16:35)
[2018-12-01] MEDS ORDERED: LR 1,000 ML IV ONE (12:16)
[2018-12-01] MEDS ORDERED: ONDANSETRON 4 MG/2 ML VIAL IVP ONE (12:45)
[2018-12-01] MEDS ORDERED: DEXMEDETOMIDINE HCL 400 MCG in NS 100 ML IV SCH (13:00)
[2018-12-01] MEDS ORDERED: BUPIVACAINE 0.5% 30 ML SDV ONE (13:11)
[2018-12-01] MEDS ORDERED: PROPOFOL/EMULSION 500 MG/50 ML BOTTLE IV ONE (13:43)
[2018-12-01] MEDS ORDERED: KETAMINE 200 MG/20 ML VIAL ONE (13:43)
[2018-12-01] MEDS ORDERED: fentaNYL 100 MCG/2 ML INJ ONE ×2 (13:43→15:52)
[2018-12-01] MEDS ORDERED: RANITIDINE 50 MG/2 ML VIAL ONE (14:14)
[2018-12-01] MEDS ORDERED: KETOROLAC 30 MG/1 ML SDV ONE (14:14)
[2018-12-01] MEDS ORDERED: ceFAZolin 1 GM VIAL ONE (14:14)
[2018-12-01] MEDS ORDERED: ROCURONIUM 50 MG/5 ML VIAL ONE (14:14)
[2018-12-01] MEDS ORDERED: SUGAMMADEX SODIUM 200 MG/2 ML VIAL IVP ONE (14:14)
[2018-12-01] MEDS ORDERED: METOCLOPRAMIDE 10 MG/2 ML VIAL ONE (14:14)
--- NOTE | 2018-12-01 14:14 | SOAPPROG ---
SOAP Progress Note Assessment/Plan: Assessment: 53 yo s/p hysterectomy with small bowel enterotomy and c diff Still with RUQ pain No BM Overall better HIDA with EF 20% Had pain after eating last night, epigastric and RUQ WIll proceed to OR for lap cameron, possible delio Risks and benefits discussed S: Better but not tolerating po without nausea and pain O: Sitting in bed Abdomen softer, tender RUQ. No pain LLQ CTAB RRR Plan: 12/01/18 14:12 Objective: Vital Signs Temp Pulse Resp BP Pulse Ox 36.4 C 61 16 137/80 H 91 L 12/01/18 09:54 12/01/18 09:54 12/01/18 09:54 12/01/18 09:54 12/01/18 09:54 11/30/18 12/01/18 12/02/18 05:59 05:59 05:59 Intake Total 400 1250 Balance 400 1250 ICD10 Worksheet Patient Problems: Problems Problem Status Onset Abdominal pain Acute Clostridium difficile colitis Acute Diarrhea Acute Post-operative pain Acute Postoperative abdominal pain Acute S/P laparoscopic hysterectomy Acute S/P ureteral stent placement Acute
[2018-12-01] MEDS ORDERED: LR 500 ML IV PRN (14:25)
[2018-12-01] MEDS ORDERED: NALOXONE HCL 0.4 MG/ML INJ IVP PRN (14:25)
[2018-12-01] MEDS ORDERED: DIAZEPAM 5 MG/ML 1 ML SYR IVP PRN (14:25)
[2018-12-01] MEDS ORDERED: MEPERIDINE 25 MG/0.5 ML AMP IVP PRN (14:25)
[2018-12-01] MEDS ORDERED: ALBUTEROL 3 ML DEYVIAL IH PRN (14:25)
[2018-12-01] MEDS ORDERED: ONDANSETRON 4 MG/2 ML VIAL IVP PRN (14:25)
--- NOTE | 2018-12-01 14:25 | PDANEPAE ---
ANE Past Medical History - Cardiovascular History Hx Hypertension: No Hx Arrhythmias: No Hx Chest Pain: No Hx Coronary Artery / Peripheral Vascular Disease: No Hx CHF / Valvular Disease: No Hx Palpitations: No - Pulmonary History Hx COPD: No Hx Asthma/Reactive Airway Disease: No Hx Recent Upper Respiratory Infection: No Hx Oxygen in Use at Home: No Hx Sleep Apnea: No - Neurologic History Hx Cerebrovascular Accident: No Hx Seizures: No Hx Dementia: No - Endocrine History Hx Diabetes: No - Renal History Hx Renal Disorders: No - Liver History Hx Hepatic Disorders: No - Neurological & Psychiatric Hx Hx Neurological and Psychiatric Disorders: No - Cancer History Hx Cancer: No - Congenital Disorder History Hx Congenital Disorders: No - GI History Hx Gastrointestinal Disorders: No - Other Health History Other Health History: none - Chronic Pain History Chronic Pain: Yes (R knee) - Surgical History Prior Surgeries: L knee scope 04/25. appi ANE Review of Systems Review of Systems: ANE Patient History - Allergies Allergies/Adverse Reactions: morphine Allergy (Mild, Verified 10/20/18 14:25) LACK OF EFFECTIVENESS amoxicillin [Amoxicillin] Allergy (Verified 10/20/18 14:25) Rash - Home Medications Home Medications: Pantoprazole Sodium [Protonix 40mg (*)] 40 mg PO DAILY 11/29/18 [Last Taken ] Pnv No.121/Iron/Folic Acid [ Multivitamin Tablet] 1 each PO DAILY [Last Taken Unknown] Promethazine HCl [Phenergan 12.5mg tab] 12.5 mg PO HS PRN 11/29/18 [Last Taken Unknown] - Smoking Hx Smoking Status: Never smoked - Alcohol Use Alcohol Use: None - Family Anes Hx Family Hx Anesthesia Complications: no ANE Labs/Vital Signs - Labs Result Diagrams: 11/29/18 11:55 11/29/18 11:55 - Vital Signs Blood Pressure: 137/80 Heart Rate: 61 Respiratory Rate: 16 O2 Sat (%): 91 Height: 165.1 cm Weight: 83.915 kg ANE Physical Exam - Airway Neck exam: FROM Mallampati Score: Class 1 Mouth exam: normal dental/mouth exam - Pulmonary Pulmonary: no respiratory distress, no rales or rhonchi, clear to auscultation - Cardiovascular Cardiovascular: regular rate and rhythym, no murmur, rub, or gallop - ASA Status ASA Status: II ANE Anesthesia Plan Anesthesia Plan: general endotracheal anesthesia
[2018-12-01] MEDS ORDERED: HYDROmorphONE/DILAUDID 2 MG/ML INJ ONE (15:51)
[2018-12-01] MEDS: fentaNYL 100 MCG/2 ML INJ IVP PRN ×2 (15:57→16:23)
[2018-12-01] MEDS: HYDROmorphONE/DILAUDID 2 MG/ML INJ IVP PRN ×3 (16:14→16:46)
--- NOTE | 2018-12-01 16:53 | POSTOPPROG ---
Post Op Note Date of Operation: 12/01/18 Surgeon: Antonia Mixon Anesthesiologist: oseas Anesthesia: GET(General Endotracheal) Pre-op Diagnosis: ruq pain and biliary dyskinesia Post-op Diagnosis: same Indication: 53 yo with complex hx, ruq pain biliary dyskinesia Procedure: lap delio and lap cameron Findings: midline adhesions, studding from previous peritonitis Inf/Abcess present in the surg proc area at time of surgery?: No EBL: Minimal Specimen(s): gallbladder
[2018-12-01] MEDS: HYDROmorphONE/DILAUDID 1 MG/ML INJ IVP PRN ×3 (17:27→22:08)
[2018-12-01] MEDS: KETOROLAC 15 MG/1 ML SDV IVP PRN (17:46)
--- NOTE | 2018-12-01 18:08 | PDMN ---
Medical Necessity Medical necessity: Change to inpt as of 12/01/18 @ 16:08 per MD order and [facility] S- [id number], Lysis of Adhesions by Laparoscopy. 53 y/o admitted w/persistent abd pain after hysterectomy 10/21/2018 w/sm bowel enterotomy and C diff- on oral vanco. Upgraded to inpt for persistent RUQ abd pain outside of obs period and biliary dyskinesia, hida abnormal w/GB ef 18%, unable to tolerate PO without nausea and pain, surgery following, today pt underwent lap cameron and lap lysis of adhesion. Est LOS>2MN for ongoing management of above.
--- NOTE | 2018-12-01 18:10 | HOSPPROG ---
Hospitalist Progress Note Assessment/Plan: * Cdiff colitis -PO vanco * Abd pain s/p MERYL - due to recent peritonitis from SB perf * Chronic cholecystitis s/p lap cameron * Left adnexal cystic mass -outpatient follow-up * Right adrenal adenoma -outpatient follow-up Subjective: Patient seen post surgery. Still somnolent. Nervous about discharge tomorrow since she did so poorly after last surgery with many complications Objective: Vital Signs Temp Pulse Resp BP Pulse Ox 36.6 C 54 L 14 143/77 H 96 12/01/18 17:18 12/01/18 17:57 12/01/18 17:57 12/01/18 17:57 12/01/18 17:57 11/30/18 12/01/18 12/02/18 05:59 05:59 05:59 Intake Total 400 1250 920 Output Total 5 Balance [address] abd - colitis Laboratory Tests 11/29/18 11/29/18 11/29/18 11:55 11:55 13:42 WBC 4.61 Hct 43.6 Plt Count 211 Sodium 139 Creatinine 1.0 Urine WBC 0-1 old chart reviewed - hysterectomy 10/21/[address] Guillen - Physical Exam Constitutional: no apparent distress, appears nourished, not in pain Cardiovascular: regular rate and rhythym, no murmur, rub, or gallop Respiratory: no respiratory distress, no rales or rhonchi, clear to auscultation Gastrointestinal: normoactive bowel sounds, soft, non-tender abdomen, no palpable masses Skin: no rashes or abrasions, no fluctuance, no induration Neurologic: AAOx3, sensation intact bilaterally Psychiatric: interacting appropriately, not anxious, not encephalopathic, thought process linear ICD10 Worksheet Patient Problems: Problems Problem Status Onset S/P laparoscopic hysterectomy Acute Post-operative pain Acute Postoperative abdominal pain Acute S/P ureteral stent placement Acute Abdominal pain Acute Diarrhea Acute Clostridium difficile colitis Acute
[2018-12-01] MEDS: HYDROmorphONE/DILAUDID 2 MG TAB PO PRN (19:57)
[2018-12-02] MEDS: HYDROmorphONE/DILAUDID 2 MG TAB PO PRN ×5 (00:52→22:04)
[2018-12-02] MEDS: CALCIUM CARBONATE 500 MG CHEWABLE TAB PO PRN ×3 (00:53→17:07)
[2018-12-02] MEDS: LORazepam 0.5 MG TAB PO PRN ×3 (00:53→22:03)
[2018-12-02] MEDS: PROMETHAZINE HCL 25 MG TAB PO PRN ×3 (00:53→17:07)
[2018-12-02] MEDS: KETOROLAC 15 MG/1 ML SDV IVP PRN ×3 (04:33→17:07)
[2018-12-02 05:04] LABS: PLATELET COUNT 197 10^3/uL (150-400)
[2018-12-02] MEDS: VANCOMYCIN 125 MG/2.5 ML UDL PO SCH ×4 (05:55→21:42)
[2018-12-02] MEDS ORDERED: BISACODYL 10 MG SUPP PR PRN (07:31)
[2018-12-02] MEDS ORDERED: LACTULOSE 20 GM/30 ML UDCUP PO PRN (07:31)
[2018-12-02] MEDS ORDERED: POLYETHYLENE GLYCOL 3350 17 GM PKT PO PRN (07:31)
[2018-12-02] MEDS ORDERED: MAGNESIUM HYDROXIDE 30 ML UDCUP PO PRN (07:31)
[2018-12-02] MEDS: HYDROmorphONE/DILAUDID 1 MG/ML INJ IVP PRN ×3 (09:03→13:22)
[2018-12-02] MEDS: FAMOTIDINE 20 MG/NACL 50 ML IV SCH (09:03)
[2018-12-02] MEDS ORDERED: PANTOPRAZOLE SODIUM 40 MG TAB PO SCH (09:15)
[2018-12-02] MEDS: SENNOSIDES/DOCUSATE SODIUM TAB PO SCH ×2 (09:45→21:42)
--- NOTE | 2018-12-02 09:54 | SOAPPROG ---
SOAP Progress Note Assessment/Plan: Assessment/Plan: 53yo F s/p hysterectomy with small bowel enterotomy in Oct 2018. Now admitted with persistent abdominal pain and C. diff. POD#1 s/p laparoscopic cholecystectomy and lysis of adhesions. PO vancomycin Diet as tolerated Epigastric pain worse after eating. Continue pantoprazole, Tums, Carafate. If symptoms persist, will follow up with GI for endoscopy. Bowel protocol Dispo: Possibly home later today if tolerates diet and pain controlled. Follow -up with Dr. Mixon 12/08/2017 for postop follow-up. Avoid heavy lifting, pushing or pulling x2 weeks. Low-fat diet. S: Right shoulder and right upper quadrant pain improved. Still with epigastric pain. Not taking much in p.o. No bowel movement since admission O: General: More comfortable, no acute distress HENT: Normocephalic, no gross hearing deficits, mucous membranes moist, pupils equal and round Lungs: Clear to auscultation bilaterally, No increased work of breathing Cardiac: Regular rate, no peripheral edema Abdomen: Bowel sounds present, soft and non tender. Tender epigastrium Skin: Warm and dry. Incisions clean, dry and intact without evidence of infection Psych: Mood and affect normal Neuro: Grossly intact Objective: Vital Signs Temp Pulse Resp BP Pulse Ox 36.7 C 74 16 161/83 H 94 12/02/18 08:00 12/02/18 08:00 12/02/18 08:00 12/02/18 08:00 12/02/18 08:00 Laboratory Results 12/02/18 04:35 12/02/18 04:35 12/01/18 12/02/18 12/03/18 05:59 05:59 05:59 Intake Total 1570 Output Total 5 Balance 1565 ICD10 Worksheet Patient Problems: Problems Problem Status Onset Abdominal pain Acute Clostridium difficile colitis Acute Diarrhea Acute Post-operative pain Acute Postoperative abdominal pain Acute S/P laparoscopic hysterectomy Acute S/P ureteral stent placement Acute
[2018-12-02] MEDS: NS 1,000 ML IV SCH ×2 (13:22→22:04)
--- NOTE | 2018-12-02 15:12 | GCON ---
CHIEF COMPLAINT: Epigastric pain. HISTORY OF PRESENT ILLNESS: I have been asked to see this 53-year-old woman in consultation by Dr. Mixon for persistent epigastric pain, pain with eating. The patient has chronic multiple medical issues. She has had multiple recent abdominal surgeries. Her history dates back to October when she underwent hysterectomy and bilateral salpingo-oophorectomy for fibroids and uterine dysfunction and uterine bleeding. She had a left ureteral stent placed at that time due to concerns of ureteral injury. The following day she developed severe abdominal pain. She was found to have peritonitis, was brought back to the operating room and had a proximal ileal perforation which was repaired. She had peritoneal fluid that was collected which was negative. However, she was treated with a course of antibiotics for peritonitis. She continues to have severe abdominal pain. She was discharged on 10/27. However, she had worsening abdominal pain and was diagnosed with UTI. Urology did remove her left ureteral stent. ID was consulted, and she was placed on Zosyn and discharged on levofloxacin. She had a positive urine for E coli and was given a script for Bactrim as an outpatient. She had continued right upper quadrant pain, right-sided abdominal pain with shoulder pain. She also developed diarrhea. She was having 15 nonbloody bowel movements per day. She was seen by Dr. Peralta as an outpatient. She was placed on pantoprazole and stool studies for C difficile were obtained. She was positive for C difficile and has been started on vancomycin. She underwent a HIDA scan with a low ejection fraction. Underwent a cholecystectomy. However, she continues to have epigastric pain, right upper quadrant pain. Pain is worse with eating. Asked to see patient for further evaluation by Dr. Mixon. PAST MEDICAL HISTORY: Remarkable for adrenal adenoma, hemorrhoids, uterine fibroids, recent problems with peritonitis and intraabdominal ileal perforation , E coli, UTI. SURGICAL HISTORY: Appendectomy, arthroscopy, right total knee replaced arthroscopy, total hysterectomy and bilateral salpingo-oophorectomy, left ureteral stent placement with removal, and ileal perforation with repair. FAMILY HISTORY: Remarkable for breast cancer, colon cancer, hypertension, dementia, coronary artery disease. Otherwise negative as it pertains to chief complaint. SOCIAL HISTORY: Nonsmoker, nondrinker. Was an RN in the ED for 32 years, now a charge nurse in postop, at [employer]. HOME MEDICATIONS: Included pantoprazole, vitamins, promethazine. ALLERGIES: Morphine, penicillin. REVIEW OF SYSTEMS: Negative for 10 systems other than mentioned HPI. PHYSICAL EXAM: VITAL SIGNS: 139/81, heart rate of 81, respiratory rate 18, 96 % sat, 37.26 is her temperature. GENERAL: A very pleasant woman lying in no acute distress, but appearing chronically ill in bed. HEENT: Normocephalic, atraumatic. EOMI. NECK: Supple. No cervical adenopathy. No thyromegaly. LUNGS: Clear. CARDIAC: Normal S1, S2 without murmur. ABDOMEN: Soft with bowel sounds but tender to palpation. EXTREMITIES: Without clubbing, cyanosis , edema. NEURO: Nonfocal. SKIN: Warm, dry, intact. PSYCH: Alert and oriented x3 with normal affect. LABORATORY DATA: Hemoglobin of 12.2, hematocrit 38.3. Serum chemistries: Serum sodium 136, potassium 4.1, chloride of 106, CO2 of 24, BUN of 12, blood sugar 116, AST of 77, ALT of 63. Previously, ALT was 31 with an ALT of 28. CT scan of the abdomen on 11/29 showed minimal inflammatory stranding in the sigmoid colon and rectum with a mid bowel thickening suggestive of colitis/ infectious consistent with patient's known C difficile, and a 3.2 left adnexal cystic lesion. Pancreas and spleen appeared normal. She had stable hepatic hypodensities in the liver consistent with simple cysts. No enhancing mass lesions seen in the liver. Bile ducts appeared unremarkable. Gallbladder was also unremarkable. IMPRESSION: A 53-year-old woman with multiple recent medical issues including complications from hysterectomy with small bowel injury requiring oversew of small bowel with peritonitis. Patient with upper abdominal pain, status post cholecystectomy. Patient with persistent epigastric pain worse with eating. Patient has been started on pantoprazole without significant improvement in her symptoms. RECOMMENDATIONS: 1. Continue IV pantoprazole 40 mg twice daily. 2. Proceed with diagnostic endoscopy tomorrow for further evaluation of gastritis, peptic ulcer disease, esophageal ulcer or esophagitis. 3. N.p.o. after midnight. We will follow with you. Thank you for allowing us to participate in the care of this patient. /[id number]/MODL MTDD
--- NOTE | 2018-12-02 17:19 | ASMTCMCOM ---
CM Note CM Note Notes: Pt admitted for cdiff/abdominal pain, however had gall bladder removal and lysis of adhesions yesterday and is now having post op pain. No therapies ordered. Pt lives independently with partner Rochelle and will likely discharge independently once pain is resolved. Pt also has trauma anxiety from past hospitalization for severe complications post hysterectomy. RN suggested pt receive integrative care for post op pain/anxiety and order was placed. CM to follow. D/C Plan: Independent Date Signed: 12/02/2018 05:18 PM Electronically Signed By:Rita Garland
--- NOTE | 2018-12-02 17:34 | HOSPPROG ---
Hospitalist Progress Note Assessment/Plan: * Cdiff colitis -PO vanco * Abd pain s/p MERYL - due to recent peritonitis from SB perf -still with severe pain and unable to tolerate PO * Chronic cholecystitis s/p lap cameron * Epigastric pain -EGD in am - d/w Dr. Broussard -restart PPI * Left adnexal cystic mass -outpatient follow-up * Right adrenal adenoma -outpatient follow-up Subjective: Severe epigastric pain, can't take PO, burning radiates to throat Objective: Vital Signs Temp Pulse Resp BP Pulse Ox 37.6 C 97 16 134/92 H 92 12/02/18 15:43 12/02/18 15:43 12/02/18 15:43 12/02/18 15:43 12/02/18 15:43 Laboratory Results 12/02/18 04:35 12/02/18 04:35 12/01/18 12/02/18 12/03/18 05:59 05:59 05:59 Intake Total 1570 500 Output Total 5 Balance 1565 500 AXR - no ileus - Physical Exam Constitutional: no apparent distress, appears nourished, not in pain Cardiovascular: regular rate and rhythym, no murmur, rub, or gallop Respiratory: no respiratory distress, no rales or rhonchi, clear to auscultation Gastrointestinal: normoactive bowel sounds, soft, non-tender abdomen, no palpable masses Skin: no rashes or abrasions, no fluctuance, no induration Neurologic: AAOx3, sensation intact bilaterally Psychiatric: interacting appropriately, not anxious, not encephalopathic, thought process linear ICD10 Worksheet Patient Problems: Problems Problem Status Onset S/P laparoscopic hysterectomy Acute Post-operative pain Acute Postoperative abdominal pain Acute S/P ureteral stent placement Acute Abdominal pain Acute Diarrhea Acute Clostridium difficile colitis Acute
--- NOTE | 2018-12-02 17:43 | GOP ---
DATE OF OPERATION: 12/01/2018 SURGEON: Antonia Mixon MD ANESTHESIA: General anesthesia. ANESTHESIOLOGIST: Helga Roche MD PREOPERATIVE DIAGNOSIS: Biliary dyskinesia and right upper quadrant pain. POSTOPERATIVE DIAGNOSIS: Biliary dyskinesia and right upper quadrant pain. PROCEDURE PERFORMED: Laparoscopic lysis of adhesions and laparoscopic cholecystectomy. FINDINGS: Adhesions in the midline and the right lower quadrant, omentum tethered to the gallbladder and in the right lower quadrant. SPECIMENS: Gallbladder. ESTIMATED BLOOD LOSS: 10 cc. INDICATIONS: This is a 53-year-old woman who underwent hysterectomy and unfortunately had an injury to her bowel. She developed peritonitis. The bowel was repaired laparoscopically. She has not karina dharmesh as easily as anticipated. She is most recently diagnosed with C diff despite being on oral van comycin. She continues to have right upper quadrant pain. Her pain is worse after eating and turnin g on her side. She had a HIDA scan performed that showed a lower ejection fraction. We had a discus estefany whether to see how she improves on the oral vancomycin. We discussed EGD versus diagnostic lapa roscopy and lap cholecystectomy. We mutually decided that diagnostic laparoscopy and laparoscopic ch olecystectomy would be a good start to see if there was a structural component of her right upper arnaud drant pain. DESCRIPTION OF PROCEDURE: The patient was brought into the operating room, placed supine on the tabl e, and general anesthesia was administered. Her abdomen was prepped and draped in the usual sterile fashion. I infiltrated all sites with 0.5% Marcaine prior to making incisions. I made an incision i n the subxiphoid area. I dissected down to the level of her fascia. I elevated the fascia and inser sheila the Veress needle. It passed the hanging drop test. Her abdomen insufflated easily to a pressur e of 15 mmHg. I placed a 10 mm trocar with a camera at this site. There were no injuries from Veres s needle placement. I explored her abdomen. She had adhesions in the right upper quadrant and right lower quadrant. Under direct vision I was able to place an umbilical trocar and two 5 mm trocars al rosa m the right costal margin. I performed lysis of adhesions using cold and hot cautery with the Endo Daquan. I repositioned the camera and which ports I was working through in order to fully reduce th e midline adhesions. I then was able to lift her gallbladder cephalad and I removed some additional omentum from the gallbladder and then exposed it laterally to isolate and identify the triangle of Ca lot. The cystic duct and cystic artery were isolated. They were singly clipped towards the gallblad marcell, doubly clipped distally, and transected with scissors. The gallbladder was removed from the gal lbladder fossa with electrocautery. As I was removing it, there was a breach on the contralateral si de of the gallbladder and bile was spilled. I continued removing the gallbladder and I placed this i n an EndoCatch bag, removed it via the 10 mm trocar. I performed suction irrigation. Next, I explor ed her abdomen and performed additional adhesiolysis in her pelvis. I also reduced the omentum that was tethered to her liver. I explored her abdomen. The clips were in satisfactory position. The trocars removed under direct vision. The abdomen was allowed to desufflate. The fascia at the 1 0 mm trocar site was closed with 0 Vicryl, skin closed with 4-0 Monocryl. Dermabond applied. She was awakened in the operating room, extubated, transferred to PACU in stable condition. /[id number]/MODL
[2018-12-02] MEDS ORDERED: FAMOTIDINE 20 MG TAB PO SCH (21:00)
[2018-12-02] MEDS: PANTOPRAZOLE SODIUM 40 MG TAB PO SCH (21:42)
[2018-12-03] MEDS: LORazepam 0.5 MG TAB PO PRN ×3 (03:35→16:45)
[2018-12-03] MEDS: HYDROmorphONE/DILAUDID 2 MG TAB PO PRN ×3 (03:35→21:18)
[2018-12-03] MEDS: KETOROLAC 15 MG/1 ML SDV IVP PRN (03:43)
[2018-12-03] MEDS: VANCOMYCIN 125 MG/2.5 ML UDL PO SCH ×4 (07:50→21:19)
[2018-12-03] MEDS: SENNOSIDES/DOCUSATE SODIUM TAB PO SCH ×2 (09:50→21:18)
[2018-12-03] MEDS: PANTOPRAZOLE SODIUM 40 MG TAB PO SCH ×2 (09:50→21:18)
[2018-12-03] MEDS: HYDROmorphONE/DILAUDID 1 MG/ML INJ IVP PRN ×2 (10:07→11:49)
--- NOTE | 2018-12-03 10:18 | SOAPPROG ---
SOAP Progress Note Assessment/Plan: Assessment: Assessment/Plan: 53yo F s/p hysterectomy with small bowel enterotomy in Oct 2018. Now admitted with persistent abdominal pain and C. diff. POD#2 s/p laparoscopic cholecystectomy and lysis of adhesions. Still with persistent epigastric pain - EGD today Continue pantoprazole, Tums, Carafate. Await further recs from GI after EGD C-diff PO vancomycin day 03/24 Bowel protocol - NO BM since Wednesday Dispo: Awaiting EGD, po intake and pain control Follow-up with Dr. Mixon 12/08/2017 for postop follow-up. Avoid heavy lifting, pushing or pulling x2 weeks. Low-fat diet. S: RUQ pain improved. Epigastric pain persists. Not hungry. O: General: More comfortable, no acute distress HENT: Normocephalic, no gross hearing deficits, mucous membranes moist, pupils equal and round Lungs: Clear to auscultation bilaterally, No increased work of breathing Cardiac: Regular rate, no peripheral edema Abdomen: Bowel sounds present, soft and non tender. Tender epigastrium Skin: Warm and dry. Incisions clean, dry and intact without evidence of infection Psych: Mood and affect normal Neuro: Grossly intact Plan: 12/01/18 14:12 12/03/18 10:14 Objective: Vital Signs Temp Pulse Resp BP Pulse Ox 36.9 C 74 16 156/88 H 93 12/03/18 08:36 12/03/18 08:36 12/03/18 08:36 12/03/18 08:36 12/03/18 08:36 Laboratory Results 12/02/18 04:35 12/02/18 04:35 12/02/18 12/03/18 12/04/18 05:59 05:59 05:59 Intake Total 1570 2912 Output Total 5 Balance 1565 2912 ICD10 Worksheet Patient Problems: Problems Problem Status Onset Abdominal pain Acute Clostridium difficile colitis Acute Diarrhea Acute Post-operative pain Acute Postoperative abdominal pain Acute S/P laparoscopic hysterectomy Acute S/P ureteral stent placement Acute
[2018-12-03] MEDS ORDERED: LIDOCAINE HCL 4% TOPICAL SOLN 50ML ONE (12:19)
[2018-12-03] MEDS ORDERED: MIDAZOLAM 2 MG/2 ML VIAL ONE (12:23)
[2018-12-03] MEDS ORDERED: PROPOFOL/EMULSION 500 MG/50 ML BOTTLE IV ONE (12:23)
[2018-12-03] MEDS ORDERED: LIDOCAINE 2% 5 ML SDV ONE (12:27)
--- NOTE | 2018-12-03 12:29 | PDGENHP ---
History & Physical Chief Complaint: abd pain History of Present Illness: RUG pain Relevant Physical Exam: cv rrr s1s2 nl. chest cta. abd tender. asa 11
--- NOTE | 2018-12-03 12:42 | GIREPORT ---
[facility] Surgical [facility] - Endoscopy Department Patient Name: Fernanda Salmeron Procedure Date: 12/03/2018 12:10 PM Patient Type: Inpatient Attending MD/ ER Physician: Nicole Neil MD Procedure: Upper GI endoscopy Indications: Abdominal pain in the right upper quadrant Providers: Nicole Neil MD Medicines: Monitored Anesthesia Care Complications: No immediate complications. Description of Procedure: After obtaining informed consent, the endoscope was passed under direct vision. Throughout the procedure, the patient's blood pressure, pulse, and oxygen saturations were monitored continuously. The Endosonoscope was introduced through the mouth, and advanced to the third part of duodenu m. The upper GI endoscopy was accomplished without difficulty. The patient tolerated the procedure well. Findings: Non-severe esophagitis with no bleeding was found at the gastroesophage al junction. Two localized, small non-bleeding erosions were found in the gastric an trum. There were no stigmata of recent bleeding. Biopsies were taken with a c old forceps for histology. Estimated blood loss was minimal. The examined duodenum was normal. Estimated Blood Loss: Estimated blood loss was minimal. Post Op Diagnosis: - Non-severe reflux esophagitis. - Non-bleeding erosive gastropathy. Biopsied. - Normal examined duodenum. Recommendation: - Await pathology results. - Return patient to [facility] for ongoing care. - PPI BID. - Consider Carafate 1 gm q AC if not better. - OK to advance diet per surgery. - Thank you for allowing me to participate in the care of your patient. Attending Participation: I personally performed the entire procedure. Nicole Neil MD Nicole Neil MD 12/03/2018 12:41:43 PM This report has been signed electronicallyNicole Neil MD Number of Addenda: 0 Note Initiated On: 12/03/2018 12:10 PM [email or web address]
--- NOTE | 2018-12-03 12:45 | PDANEPAE ---
ANE History of Present Illness EGD ANE Past Medical History - Cardiovascular History Hx Hypertension: No Hx Arrhythmias: No Hx Chest Pain: No Hx Coronary Artery / Peripheral Vascular Disease: No Hx CHF / Valvular Disease: No Hx Palpitations: No - Pulmonary History Hx COPD: No Hx Asthma/Reactive Airway Disease: No Hx Recent Upper Respiratory Infection: No Hx Oxygen in Use at Home: No Hx Sleep Apnea: No Sleep Apnea Screening Result - Last Documented: Negative - Neurologic History Hx Cerebrovascular Accident: No Hx Seizures: No Hx Dementia: No - Endocrine History Hx Diabetes: No - Renal History Hx Renal Disorders: No - Liver History Hx Hepatic Disorders: No - Neurological & Psychiatric Hx Hx Neurological and Psychiatric Disorders: No - Cancer History Hx Cancer: No - Congenital Disorder History Hx Congenital Disorders: No - GI History Hx Gastrointestinal Disorders: No - Other Health History Other Health History: none - Chronic Pain History Chronic Pain: Yes (R knee) - Surgical History Prior Surgeries: L knee scope 04/25. appi ANE Review of Systems Review of Systems: ANE Patient History - Allergies Allergies/Adverse Reactions: morphine Allergy (Mild, Verified 10/20/18 14:25) LACK OF EFFECTIVENESS amoxicillin [Amoxicillin] Allergy (Verified 10/20/18 14:25) Rash - Home Medications Home Medications: Pantoprazole Sodium [Protonix 40mg (*)] 40 mg PO DAILY 11/29/18 [Last Taken ] Pnv No.121/Iron/Folic Acid [ Multivitamin Tablet] 1 each PO DAILY [Last Taken Unknown] Promethazine HCl [Phenergan 12.5mg tab] 12.5 mg PO HS PRN 11/29/18 [Last Taken Unknown] - NPO status NPO Since - Liquids (Date): 11/30/18 NPO Since - Liquids (Time): 23:00 NPO Since - Solids (Date): 11/30/18 NPO Since - Solids (Time): 23:00 - Smoking Hx Smoking Status: Never smoked - Alcohol Use Alcohol Use: None - Family Anes Hx Family Hx Anesthesia Complications: no ANE Labs/Vital Signs - Labs Result Diagrams: 12/02/18 04:35 12/02/18 04:35 - Vital Signs Blood Pressure: 156/88 Heart Rate: 74 Respiratory Rate: 16 O2 Sat (%): 93 Height: 165.1 cm Weight: 83.915 kg ANE Physical Exam - Airway Neck exam: FROM Mallampati Score: Class 2 Mouth exam: normal dental/mouth exam - Pulmonary Pulmonary: clear to auscultation - Cardiovascular Cardiovascular: regular rate and rhythym - ASA Status ASA Status: II ANE Anesthesia Plan Anesthesia Plan: GA with mask
[2018-12-03] MEDS ORDERED: NALOXONE HCL 0.4 MG/ML INJ IVP PRN (12:46)
[2018-12-03] MEDS ORDERED: fentaNYL 100 MCG/2 ML INJ IVP PRN (12:46)
[2018-12-03] MEDS ORDERED: ONDANSETRON 4 MG/2 ML VIAL IVP PRN (12:46)
[2018-12-03] MEDS ORDERED: PROMETHAZINE HCL 25 MG/ML INJ IVP PRN (12:46)
--- NOTE | 2018-12-03 12:46 | POSTANESTH ---
Post Anesthetic Evaluation Cardiovascular Status: Normal, Stable Respiratory Status: Normal, Stable Level of Consciousness/Mental Status: Can Participate in Eval, Mildly Sleepy, Arousable Pain Control: Adequate, Prn Tx Ordered Nausea/Vomiting Control: Adequate, Prn Tx Ordered
--- NOTE | 2018-12-03 15:37 | HOSPPROG ---
Hospitalist Progress Note Assessment/Plan: * Cdiff colitis -PO vanco * Chronic cholecystitis s/p lap cameron * Recent peritonitis due to surgical perf with hysterectomy -extensive MERYL required during lap cameron -RUQ/RLQ and omental adhesions -suspect element of post-op ileus, despite negative Xray * Esophagitis -BID PPI -consider add Carafate if not better * Left adnexal cystic mass -outpatient follow-up * Right adrenal adenoma -outpatient follow-up Subjective: Still no flatus or BM, eaten very little, still with pain Objective: Vital Signs Temp Pulse Resp BP Pulse Ox 36.4 C 74 21 H 152/88 H 94 12/03/18 13:21 12/03/18 12:45 12/03/18 13:16 12/03/18 13:16 12/03/18 13:16 Laboratory Results 12/02/18 04:35 12/02/18 04:35 12/02/18 12/03/18 12/04/18 05:59 05:59 05:59 Intake Total 1570 2912 400 Output Total 5 Balance 1565 2912 400 Still using IV dilaudid for pain EGD report reviewed - esophagitis - Physical Exam Constitutional: no apparent distress, appears nourished, not in pain Cardiovascular: regular rate and rhythym, no murmur, rub, or gallop Respiratory: no respiratory distress, no rales or rhonchi, clear to auscultation Gastrointestinal: normoactive bowel sounds, soft, non-tender abdomen, no palpable masses Skin: no rashes or abrasions, no fluctuance, no induration Neurologic: AAOx3, sensation intact bilaterally Psychiatric: interacting appropriately, not anxious, not encephalopathic, thought process linear ICD10 Worksheet Patient Problems: Problems Problem Status Onset Abdominal pain Acute Clostridium difficile colitis Acute Diarrhea Acute Post-operative pain Acute Postoperative abdominal pain Acute S/P laparoscopic hysterectomy Acute S/P ureteral stent placement Acute
[2018-12-03] MEDS ORDERED: LORazepam 1 MG TAB PO ONE (16:45)
[2018-12-03] MEDS ORDERED: LORazepam 0.5 MG TAB PO PRN (16:46)
[2018-12-03] MEDS: SUCRALFATE 1 GM TAB PO SCH ×2 (17:28→21:18)
[2018-12-04] MEDS: HYDROmorphONE/DILAUDID 2 MG TAB PO PRN (03:19)
[2018-12-04] MEDS: VANCOMYCIN 125 MG/2.5 ML UDL PO SCH ×2 (06:01→11:56)
[2018-12-04] MEDS: SUCRALFATE 1 GM TAB PO SCH (07:49)
[2018-12-04 08:01] VITALS: BP 137/78
[2018-12-04] MEDS: PROMETHAZINE HCL 25 MG TAB PO PRN (09:54)
[2018-12-04] MEDS: SENNOSIDES/DOCUSATE SODIUM TAB PO SCH (09:56)
[2018-12-04] MEDS: PANTOPRAZOLE SODIUM 40 MG TAB PO SCH (09:56)
--- NOTE | 2018-12-04 09:59 | ASMTDCNOTE ---
Case Management Discharge Discharge Order Complete? Answers: Yes Patient to Obtain Answers: via Family Medications Transportation Arranged Answers: Family/Friends Transport will Pick (Date 12/04/2018 12:00 AM & Time) Family Notified Answers: Yes Notes: by pt. Discharge Comments Notes: Spoke with pt in the room. Pt to discharge independently with support from partner Rochelle. No CM needs noted at this time. Date Signed: 12/04/2018 09:59 AM Electronically Signed By:Rita Garland
--- NOTE | 2018-12-04 10:02 | ASDISCHSUM ---
Discharge Information Plan Status:Home with No Needs Medically Cleared to Leave:12/03/2018 Discharge Date:12/03/2018 CM D/C Disposition:Home, Routine, Self-Care ADT D/C Disposition:Home, Routine, Self-Care Projected Discharge Date:12/03/2018 Transportation at D/C:Family Discharge Delay Reason: Follow-Up Date:12/03/2018 Discharge Slot: Final Diagnosis:cdiff, cholecystitis Placement Information Patient Contact Information Contact Name:JUDY Relationship:Life Partner Address:[address] Work Phone: City:[address] Alternate Phone: [facility]/Zip Code:[place] [address] Email: Financial Information Financial Class:IP [employer] Primary Plan Desc:[facility] Primary Plan Number:[id number] Secondary Plan Desc: Secondary Plan Number: Assessment Information LACE LACE Length of stay for Answers: 4-6 days current admission Acuity / Level of Answers: Yes Care: Did the patient have an inpatient admission? Comorbidities - select Answers: Opioid dependence all that apply / Chronic pain Other Notes: Anemia, cholecystitis, hys terectomy # of Emergency department Answers: 1-2 visits in the last 6 months Score: 13 Date Signed: 12/04/2018 10:01 AM Electronically Signed By:Rita Garland [facility] CM Progress Note CM Note CM Note Notes: Pt is a 53 yo F presents with abdominal pain and C-diff. Pt had a hysterectomy on 10/21. Pt lives with partner Rochelle. No therapies ordered. CM anticipates pt will be discharged independently. CM available if needs arise. Plan: Independent. Date Signed: 11/30/2018 10:51 AM Electronically Signed By:TANYA Ro [facility] CM Progress Note CM Note CM Note Notes: Pt admitted for cdiff/abdominal pain, however had gall bladder removal and lysis of adhesions yesterday and is now having post op pain. No therapies ordered. Pt lives independently with partner Rochelle and will likely discharge independently once pain is resolved. Pt also has trauma anxiety from past hospitalization for severe complications post hysterectomy. RN suggested pt receive integrative care for post op pain/anxiety and order was placed. CM to follow. D/C Plan: Independent Date Signed: 12/02/2018 05:18 PM Electronically Signed By:Rita Garland Case Management Discharge Plan Note Case Management Discharge Discharge Order Complete? Answers: Yes Patient to Obtain Answers: via Family Medications Transportation Arranged Answers: Family/Friends Transport will Pick (Date 12/04/2018 12:00 AM & Time) Family Notified Answers: Yes Notes: by pt. Discharge Comments Notes: Spoke with pt in the room. Pt to discharge independently with support from partner Rochelle. No CM needs noted at this time. Date Signed: 12/04/2018 09:59 AM Electronically Signed By:Rita Garland Intervention Information
--- NOTE | 2018-12-04 11:33 | SOAPPROG ---
SOAP Progress Note Assessment/Plan: Assessment: Assessment/Plan: 53yo F s/p hysterectomy with small bowel enterotomy in Oct 2018. Now admitted with persistent abdominal pain and C. diff. POD#3 s/p laparoscopic cholecystectomy and lysis of adhesions. EGD with gastritis Tolerating diet Can dc home with bid pantoprazole X 1 week then daily Carafate QACHS x 1 week Prn dilaudid and Ativan C-diff PO vancomycin day 04/24 Bowel protocol - NO BM since Wednesday Dispo: Home today Follow-up with Dr. Mixon 12/08/2017 for postop follow-up. Avoid heavy lifting, pushing or pulling x2 weeks. Low-fat diet. S: RUQ pain improved. Epigastric more towards incision now. Did eat toast this am. O: General: More comfortable, no acute distress HENT: Normocephalic, no gross hearing deficits, mucous membranes moist, pupils equal and round Lungs: Clear to auscultation bilaterally, No increased work of breathing Cardiac: Regular rate, no peripheral edema Abdomen: Bowel sounds present, soft and non tender. Tender epigastrium Skin: Warm and dry. Incisions clean, dry and intact without evidence of infection Psych: Mood and affect normal Neuro: Grossly intact Plan: 12/01/18 14:12 12/03/18 10:14 12/04/18 11:31 Objective: Vital Signs Temp Pulse Resp BP Pulse Ox 37.1 C 77 19 137/78 H 90 L 12/04/18 08:00 12/04/18 08:00 12/04/18 08:00 12/04/18 08:00 12/04/18 08:00 Laboratory Results 12/02/18 04:35 12/02/18 04:35 12/03/18 12/04/18 12/05/18 05:59 05:59 05:59 Intake Total 2912 1050 Balance 2912 1050 ICD10 Worksheet Patient Problems: Problems Problem Status Onset Abdominal pain Acute Clostridium difficile colitis Acute Diarrhea Acute Post-operative pain Acute Postoperative abdominal pain Acute S/P laparoscopic hysterectomy Acute S/P ureteral stent placement Acute
--- NOTE | 2018-12-04 12:00 | SOAPPROG ---
SOAP Progress Note Assessment/Plan: Assessment: Abd pain suspect multi factorial has mild gastritis and esophagitis Plan: PPI and Carafate Await biopsy Agree with d/c home today 12/04/18 11:57 Subjective: cc Abd pain Pt notes abd pain Objective: Vital Signs Temp Pulse Resp BP Pulse Ox 37.1 C 77 19 137/78 H 90 L 12/04/18 08:00 12/04/18 08:00 12/04/18 08:00 12/04/18 08:00 12/04/18 08:00 Laboratory Results 12/02/18 04:35 12/02/18 04:35 12/03/18 12/04/18 12/05/18 05:59 05:59 05:59 Intake Total 2912 1050 Balance 2912 1050 Physical Exam - Physical Exam General Appearance: alert Respiratory: lungs clear Cardiac/Chest: regular rate, rhythm Abdomen: soft ICD10 Worksheet Patient Problems: Problems Problem Status Onset Abdominal pain Acute Clostridium difficile colitis Acute Diarrhea Acute Post-operative pain Acute Postoperative abdominal pain Acute S/P laparoscopic hysterectomy Acute S/P ureteral stent placement Acute
--- NOTE | 2018-12-04 17:31 | GDS ---
REASON FOR ADMISSION: Fernanda was seen in my office on 11/29/2018 for persistent abdominal pain out of proportion to expected clinical course following hysterectomy and repair of bowel perforation done in early October. n I recommended that she be seen in the emergency department PRIMARY DIAGNOSIS: Right upper quadrant pain with biliary dyskinesia. SECONDARY DIAGNOSIS: Clostridium difficile positive. HOSPITAL COURSE: A 53-year-old female presented to me on November 29, 2018, for routine postop followup for hysterectomy and repair of bowel perforation done in early October. Patient was complaining of ongoing abdominal pain that was concerning for her expected clinical course following surgery. The patient was subsequently sent to the ED for further evaluation and CT scan which showed colitis. During this time I learned she was positive for C diff. The patient was admitted and started on vancomycin. She continued to have persistent right upper quadrant and epigastric pain that radiated to the right shoulder that was worse postprandially. HIDA scan showed ejection fraction of 20%. The patient was taken to the OR on December 01, 2018, for a lap cholecystectomy and lysis of adhesions. The patient continued to have postprandial epigastric pain, raising concerns for an ulcer. The patient started on ulcer therapy with PPI. Endoscopy consistent with gastritis. Abdominal pain improved. By December 04, 2018, was discomfort associated more with incisions from surgery. The patient progressing well, tolerating p.o. diet and ambulating without assistance and is ready for discharge home. CONDITION ON DISCHARGE: Ambulates without assistance. Pain well-controlled. Tolerating regular diet. NEW MEDICATIONS: Vancomycin and Dilaudid and Ativan p.r.n. DISCHARGE INSTRUCTIONS: The patient instructed to follow up with Dr. Mixon on December 08, 2017, for routine postoperative followup. /[id number]/MODL MTDD
== END 2018-12-04 12:05 | disposition home or self-care (01) | DRG 418 ==
LOC: INTOOBSV 14:04 → F1N 17:10 → OBSVTOIN 12-01 16:08
PROVIDERS: ADMIT Internal Medicine; ATTEND Surgery
PROC: 0FT44ZZ Resection of Gallbladder, Percutaneous Endoscopic Approach (ICD-10-PCS; principal; 2018-12-01 13:15)
PROC: 0DB68ZX Excision of Stomach, Via Natural or Artificial Opening Endoscopic, Diagnostic (ICD-10-PCS; 2018-12-03)
DX: K82.8 Other specified diseases of gallbladder (principal); A04.72 Enterocolitis due to Clostridium difficile, not specified as recurrent; K81.1 Chronic cholecystitis; E86.9 Volume depletion, unspecified; K29.70 Gastritis, unspecified, without bleeding; K20.8 Other esophagitis; Z88.0 Allergy status to penicillin; Z90.710 Acquired absence of both cervix and uterus; Z96.651 Presence of right artificial knee joint; Z80.3 Family history of malignant neoplasm of breast; Z80.0 Family history of malignant neoplasm of digestive organs
CPT/HCPCS: 96374; A9537; G0378; J0690; J1170; J1885; J2060; J2250; J2405; J2704; J2765; J2780; J2805; J3010; Q9967

== ENCOUNTER → 2018-12-20 | Outpatient (CLI) | payer OTHER ==
[~2018-12-20] MED LIST changes: +IOHEXOL 300 mgI/ML (OMNIPAQUE) 150 ML BTL IV ONE; -ROPIVACAINE 0.2% 80 MG, EPINEPHrine 0.2 MG, KETOROLAC TROMETHAMINE 30 MG in BAG 0 ML IU ONE; -TRANEXAMIC ACID 890 MG in NS 100 ML IV ONE; -VANCOMYCIN 1.25 GM in D5W 250 ML IV ONE; -VANCOMYCIN PHARMACY TO DOSE MISC ONE
== END ==
LOC: FIMAGING 11:49
PROVIDERS: ATTEND Internal Medicine Infectious Disease
DX: R10.9 Unspecified abdominal pain (principal); N83.202 Unspecified ovarian cyst, left side; Z87.19 Personal history of other diseases of the digestive system; Z90.49 Acquired absence of other specified parts of digestive tract; Z90.710 Acquired absence of both cervix and uterus
CPT/HCPCS: Q9967

== ENCOUNTER 2019-02-28 19:23 | Observation (INO) | payer OTHER ==
[2019-02-28] MEDS ORDERED: fentaNYL 100 MCG/2 ML INJ IVP ONE (19:58)
[2019-02-28] MEDS ORDERED: NS 1,000 ML IV ONE (20:17)
[2019-02-28] MEDS ORDERED: IOPAMIDOL (ISOVUE 370) 100 ML BTL IV ONE (20:33)
[2019-02-28] MEDS ORDERED: ONDANSETRON DISINTEGRATING 4 MG TAB PO PRN (23:09)
[2019-02-28] MEDS ORDERED: ACETAMINOPHEN 650 MG SUPP PR PRN (23:09)
[2019-02-28] MEDS ORDERED: ONDANSETRON 4 MG/2 ML VIAL IVP PRN (23:09)
[2019-02-28] MEDS ORDERED: NS 1,000 ML IV SCH (23:15)
[2019-03-01] MEDS: ACETAMINOPHEN 325 MG TAB PO PRN ×2 (00:46→12:27)
[2019-03-01] MEDS: LORazepam 2 MG/ML INJ IVP PRN ×2 (00:46→23:39)
[2019-03-01] MEDS: HYDROmorphONE/DILAUDID 1 MG/ML INJ IVP PRN ×4 (10:22→20:20)
[2019-03-01] MEDS ORDERED: DICYCLOMINE 10 MG CAP PO PRN (13:01)
[2019-03-01] MEDS ORDERED: MIDAZOLAM 2 MG/2 ML VIAL ONE (14:09)
[2019-03-01] MEDS ORDERED: Herbals/Supplements -Info Only PO SCH (16:00)
[2019-03-01] MEDS ORDERED: PROMETHAZINE HCL 25 MG TAB PO PRN (16:15)
[2019-03-01] MEDS: HYOSCYAMINE SULFATE 0.125 MG TAB PO SCH ×2 (18:36→23:39)
[2019-03-01] MEDS ORDERED: D50W 25 GM/50 ML SYR IVP PRN (23:43)
[2019-03-01] MEDS: D5W 1/2 NS 1,000 ML IV SCH (23:55)
[2019-03-02] MEDS: HYOSCYAMINE SULFATE 0.125 MG TAB PO SCH ×4 (05:20→23:51)
[2019-03-02] MEDS: HYDROmorphONE/DILAUDID 1 MG/ML INJ IVP PRN (14:26)
[2019-03-02] MEDS: LORazepam 2 MG/ML INJ IVP PRN ×2 (14:36→23:51)
[2019-03-02] MEDS: D5W 1/2 NS 1,000 ML IV SCH ×2 (14:44→23:55)
[2019-03-03] MEDS: HYOSCYAMINE SULFATE 0.125 MG TAB PO SCH ×2 (05:16→12:50)
[2019-03-03] MEDS: LORazepam 2 MG/ML INJ IVP PRN (08:34)
[2019-03-03] MEDS ORDERED: MIDAZOLAM 2 MG/2 ML VIAL ONE (09:00)
[2019-03-03] MEDS ORDERED: PROPOFOL/EMULSION 500 MG/50 ML BOTTLE IV ONE (09:24)
[2019-03-03] MEDS ORDERED: LIDOCAINE 2% 100 MG/5 ML SYR ONE (09:24)
[2019-03-03] MEDS ORDERED: DEXAMETHASONE 4 MG/ML VIAL IVP PRN (09:53)
[2019-03-03] MEDS ORDERED: NALOXONE HCL 0.4 MG/ML INJ IVP PRN (09:53)
[2019-03-03] MEDS ORDERED: fentaNYL 100 MCG/2 ML INJ IVP PRN (09:53)
[2019-03-03] MEDS ORDERED: oxyCODONE IR 5 MG TAB PO PRN (09:53)
[2019-03-03] MEDS ORDERED: PROMETHAZINE HCL 25 MG/ML INJ IVP PRN (09:53)
[2019-03-03] MEDS ORDERED: ONDANSETRON 4 MG/2 ML VIAL IVP PRN (09:53)
== END 2019-03-03 13:49 | disposition home or self-care (01) ==
DX: R07.2 Precordial pain (principal); R13.10 Dysphagia, unspecified; R10.13 Epigastric pain; F32.9 Major depressive disorder, single episode, unspecified
CPT/HCPCS: 43214; 71275; 74220; 74250; 93005; 96361; 96374; 96375; 96376; 99285; G0378